=== PATIENT | male | born 1985 | race Hispanic/Latino ===

== ENCOUNTER 2018-10-18 15:09 | Emergency (ER) | payer SELFPAY ==
[2018-10-18 15:35] LABS: BASOPHILS % (AUTO) 0.8 % (0.0-5.0); EOSINOPHILS % (AUTO) 1.3 % (0.0-8.0); HEMATOCRIT 50.3 % (42-54); LYMPHOCYTES % (AUTO) 19.3 % (21.0-51.0); MEAN CORPUSCULAR HEMOGLOBIN 32.8 pg (27.0-33.0); MEAN CORPUSCULAR HGB CONC 34.5 g/dL (32.0-36.0); MEAN CORPUSCULAR VOLUME 95.2 fL (79-99); MONOCYTES % (AUTO) 5.1 % (3.0-13.0); NEUTROPHILS % (AUTO) 73.5 % (40.0-77.0); PLATELET COUNT (AUTO) 207 K/uL (130-400); RED BLOOD CELL COUNT(AUTO) 5.29 MIL/uL (4.50-6.20); RED CELL DISTRIBUTION WIDTH 13.4 % (11.0-15.5)
[2018-10-18 15:46] LABS: CREATININE 0.9 mg/dL (0.5-1.5); POTASSIUM 4.4 mmol/L (3.5-5.1)
[2018-10-18 15:48] LABS: INR 0.97 (0.85-1.15); PARTIAL THROMBOPLASTIN TIME 34.8 SEC (26.3-35.5); PROTHROMBIN TIME 10.2 SEC (9.6-11.6)
[2018-10-18 15:54] LABS: ALBUMIN 4.6 g/dL (3.5-5.0); BILIRUBIN,TOTAL 0.5 mg/dL (0.2-1.0); TOTAL PROTEIN, SERUM 7.9 g/dL (6.0-8.3)
[2018-10-18] MEDS ORDERED: THIAMINE HCL 100 MG/ML 2ML VIAL ONE (17:06)
[2018-10-18 17:11] LABS: APPEARANCE,URINE Cloudy (CLEAR); BILIRUBIN,URINE Negative (NEGATIVE); COLOR,URINE Yellow (YELLOW); GLUCOSE, URINE (UA) Negative (NEGATIVE); KETONES,URINE 15 mg/dL (NEGATIVE); LEUKOCYTE ESTERASE ,URINE Negative (NEGATIVE); NITRATE,URINE Negative (NEGATIVE); OCCULT BLOOD,URINE Negative (NEGATIVE); PROTEIN,URINE Negative (NEGATIVE)
[2018-10-18 17:18] LABS: AMPHET/METH SCREEN,URINE NEGATIVE (NEGATIVE); BARBITURATE SCREEN, URINE NEGATIVE (NEGATIVE); BENZODIAZEPINES SCREEN,URINE NEGATIVE (NEGATIVE); CANNABINOID SCREEN,URINE POSITIVE (NEGATIVE); COCAINE SCREEN,URINE NEGATIVE (NEGATIVE); OPIATE SCREEN,URINE NEGATIVE (NEGATIVE); PHENCYCLIDINE SCREEN,URINE NEGATIVE (NEGATIVE)
[2018-10-18 17:24] LABS: BACTERIA,URINE Few /HPF (None Seen); RBC,URINE None Seen /HPF (0-1)
[2018-10-18 17:25] LABS: MUCUS,URINE Many LPF (None Seen); SQUAMOUS EPITHELIAL CELL,UR None Seen /HPF (0-2)
== END 2018-10-18 17:41 ==
LOC: EDH 15:09
DX: R42 Dizziness and giddiness (principal); F10.10 Alcohol abuse, uncomplicated; R11.2 Nausea with vomiting, unspecified; R20.2 Paresthesia of skin; R19.7 Diarrhea, unspecified; R51 Headache; Z72.0 Tobacco use
CPT/HCPCS: 36415; 80053; 80305; 81001; 82150; 82550; 83690; 84484; 85025; 85610; 85730; 93005; 96374; 99285; G0480; J3411

== ENCOUNTER 2019-01-08 09:07 | Emergency (ER) | payer SELFPAY | END 2019-01-08 09:33 | disposition home or self-care (01) | LOC: EDH 09:07 | DX: S68.120D Partial traumatic metacarpophalangeal amputation of right index finger, subsequent encounter (principal); S68.122D Partial traumatic metacarpophalangeal amputation of right middle finger, subsequent encounter; S68.124D Partial traumatic metacarpophalangeal amputation of right ring finger, subsequent encounter; X58.XXXD Exposure to other specified factors, subsequent encounter | CPT/HCPCS: 99281 ==

== ENCOUNTER 2019-12-04 11:51 | Emergency (ER) | payer SELFPAY ==
[2019-12-04 12:38] LABS: APPEARANCE,URINE Clear (CLEAR); BILIRUBIN,URINE Negative (NEGATIVE); COLOR,URINE Yellow (YELLOW); GLUCOSE, URINE (UA) Negative (NEGATIVE); KETONES,URINE Trace mg/dL (NEGATIVE); LEUKOCYTE ESTERASE ,URINE Small (NEGATIVE); NITRATE,URINE Negative (NEGATIVE); OCCULT BLOOD,URINE Negative (NEGATIVE); PROTEIN,URINE Negative (NEGATIVE)
[2019-12-04 12:46] LABS: AMPHET/METH SCREEN,URINE NEGATIVE (NEGATIVE); BARBITURATE SCREEN, URINE NEGATIVE (NEGATIVE); BENZODIAZEPINES SCREEN,URINE NEGATIVE (NEGATIVE); CANNABINOID SCREEN,URINE POSITIVE (NEGATIVE); COCAINE SCREEN,URINE NEGATIVE (NEGATIVE); OPIATE SCREEN,URINE NEGATIVE (NEGATIVE); PHENCYCLIDINE SCREEN,URINE NEGATIVE (NEGATIVE)
[2019-12-04 13:05] LABS: BACTERIA,URINE Few /HPF (None Seen); SQUAMOUS EPITHELIAL CELL,UR 0-2 /HPF (0-2)
[2019-12-04 13:16] LABS: BASOPHILS % (AUTO) 0.3 % (0.0-5.0); EOSINOPHILS % (AUTO) 0.3 % (0.0-8.0); HEMATOCRIT 47.4 % (42-54); LYMPHOCYTES % (AUTO) 9.8 % (21.0-51.0); MEAN CORPUSCULAR HEMOGLOBIN 31.8 pg (27.0-33.0); MEAN CORPUSCULAR HGB CONC 34.6 g/dL (32.0-36.0); MEAN CORPUSCULAR VOLUME 91.9 fL (79-99); MONOCYTES % (AUTO) 4.8 % (3.0-13.0); NEUTROPHILS % (AUTO) 84.5 % (40.0-77.0); PLATELET COUNT (AUTO) 187 K/uL (130-400); RED BLOOD CELL COUNT(AUTO) 5.16 MIL/uL (4.50-6.20); RED CELL DISTRIBUTION WIDTH 12.4 % (11.0-15.5)
[2019-12-04 13:31] LABS: RAPID GROUP A STREP NEGATIVE (NEGATIVE)
[2019-12-04 13:32] LABS: CREATININE 0.8 mg/dL (0.5-1.5); POTASSIUM 4.6 mmol/L (3.5-5.1)
[2019-12-04 13:36] LABS: ALBUMIN 4.1 g/dL (3.5-5.0); BILIRUBIN,TOTAL 0.6 mg/dL (0.2-1.0); TOTAL PROTEIN, SERUM 7.7 g/dL (6.0-8.3)
== END 2019-12-04 14:38 ==
LOC: EEVIPCON 11:51 → EDH 11:51
DX: H65.02 Acute serous otitis media, left ear (principal); Z72.0 Tobacco use
CPT/HCPCS: 36415; 71045; 80053; 80305; 81001; 85025; 87088; 87804 ×2; 87880; 99284; G0480

== ENCOUNTER 2022-03-23 10:05 | Emergency (ER) | payer OTHER ==
[~2022-03-23] VITALS: Ht 162.6 cm; Wt 72.6 kg
[2022-03-23] MEDS ORDERED: MORPHINE 4 MG SYG IM ONE (10:30)
[2022-03-23 11:29] VITALS: BP 135/80
== END 2022-03-23 12:16 | disposition home or self-care (01) ==
LOC: EDH 10:05
DX: M25.511 Pain in right shoulder (principal); W01.0XXA Fall on same level from slipping, tripping and stumbling without subsequent striking against object, initial encounter; Y93.89 Activity, other specified; Y92.89 Other specified places as the place of occurrence of the external cause; Y99.8 Other external cause status
CPT/HCPCS: 99284; 73000; 73030; 96372; J2270

== ENCOUNTER 2022-10-21 06:20 | Emergency (ER) | payer OTHER, SELFPAY ==
[~2022-10-21] VITALS: Ht 152.4 cm; Wt 71.2 kg
[2022-10-21 06:25] VITALS: BP 129/76
[2022-10-21] MEDS ORDERED: IBUP-2071 PO (07:44)
[2022-10-21] MEDS ORDERED: SILV20CR11 TP (07:44)
[2022-10-21] MEDS ORDERED: SILVER SULFADIAZINE CREAM 50 GM TP SCH (08:00)
[2022-10-21] MEDS ORDERED: SILVER SULFADIAZINE CREAM 400 GM TP SCH (08:00)
[2022-10-21] MEDS ORDERED: IBUPROFEN 800 MG TAB PO ONE (08:00)
== END 2022-10-21 08:05 | disposition home or self-care (01) ==
LOC: EDH 06:20
DX: T25.021A Burn of unspecified degree of right foot, initial encounter (principal); Z98.890 Other specified postprocedural states; X08.8XXA Exposure to other specified smoke, fire and flames, initial encounter; Y93.89 Activity, other specified; Y92.89 Other specified places as the place of occurrence of the external cause; Y99.8 Other external cause status

== ENCOUNTER 2023-08-31 20:55 | Emergency (ER) | payer OTHER ==
[~2023-08-31] VITALS: Ht 160 cm; Wt 65.8 kg
[~2023-08-31 20:55] MED LIST: IBUP-2071 PO; SILV20CR11 TP
[2023-08-31 21:23] LABS: BASOPHILS # (AUTO) 0.05 K/uL (0.00-0.20); BASOPHILS % (AUTO) 0.6 % (0.0-5.0); EOSINOPHILS # (AUTO) 0.06 K/uL (0.00-0.70); EOSINOPHILS % (AUTO) 0.7 % (0.0-8.0); HEMATOCRIT 46.1 % (42-54); IMMATURE GRANULOCYTE ABSOLUTE 0.02 K/uL (0-1); LYMPHOCYTES # (AUTO) 2.9 K/uL (1.0-4.8); LYMPHOCYTES % (AUTO) 35.4 % (21.0-51.0); MEAN CORPUSCULAR HEMOGLOBIN 32.7 pg (27.0-33.0); MEAN CORPUSCULAR HGB CONC 35.4 g/dL (32.0-36.0); MEAN CORPUSCULAR VOLUME 92.6 fL (79-99); MONOCYTES # (AUTO) 0.5 K/uL (0.1-1.0); MONOCYTES % (AUTO) 6.4 % (3.0-13.0); NEUTROPHILS # (AUTO) 4.7 K/uL (1.8-7.7); NEUTROPHILS % (AUTO) 56.7 % (40.0-77.0); PLATELET COUNT (AUTO) 220 K/uL (130-400); RED BLOOD CELL COUNT(AUTO) 4.98 MIL/uL (4.50-6.20); WHITE BLOOD COUNT (AUTO) 8.3 K/uL (4.8-10.8)
[2023-08-31] MEDS: DiphenhydrAMINE HCL 50 MG/ML VIAL IV ONE (21:34)
[2023-08-31] MEDS: KETOROLAC 30MG VIAL (30MG/ML) IVP ONE (21:34)
[2023-08-31 21:45] LABS: ALBUMIN 4.4 g/dL (3.5-5.0); BILIRUBIN,TOTAL 0.5 mg/dL (0.2-1.0); CREATININE 1.1 mg/dL (0.5-1.5); TOTAL PROTEIN, SERUM 7.7 g/dL (6.0-8.3)
[2023-08-31 21:47] LABS: AMPHET/METH SCREEN,URINE NEGATIVE (NEGATIVE); BARBITURATE SCREEN, URINE NEGATIVE (NEGATIVE); BENZODIAZEPINES SCREEN,URINE NEGATIVE (NEGATIVE); CANNABINOID SCREEN,URINE POSITIVE (NEGATIVE); COCAINE SCREEN,URINE NEGATIVE (NEGATIVE); OPIATE SCREEN,URINE NEGATIVE (NEGATIVE); PHENCYCLIDINE SCREEN,URINE NEGATIVE (NEGATIVE)
[2023-08-31 21:47] LABS: POTASSIUM 2.8 mmol/L (3.5-5.1)
[2023-08-31] MEDS ORDERED: PROCHLORPERAZINE 10MG/2ML INJ IV ONE (22:00)
[2023-08-31] MEDS: POTASSIUM BICARB/CIT AC 25 MEQ TABLET.EFF PO ONE (22:14)
[2023-09-01 00:01] VITALS: BP 133/86; PULSE 68; RESP 17; O2SAT 99
[2023-09-01] MEDS ORDERED: IBUP-1493 PO (00:37)
[2023-09-01] MEDS ORDERED: HYDR25CA PO (00:37)
== END 2023-09-01 00:45 | disposition home or self-care (01) ==
LOC: EDH 20:55
DX: F41.9 Anxiety disorder, unspecified (principal); R07.89 Other chest pain; Z79.899 Other long term (current) drug therapy; Z98.890 Other specified postprocedural states
CPT/HCPCS: 99285; 96374; 71045; 96375; 84484; 80053; 80305; 85025; 36415; 93005; J1200; J1885

== ENCOUNTER 2023-09-05 21:28 | Emergency (ER) | payer OTHER ==
[~2023-09-05] VITALS: Ht 157.5 cm; Wt 64.9 kg
[~2023-09-05 21:28] MED LIST changes: +HYDR25CA PO; +IBUP-1493 PO
[2023-09-06 06:00] VITALS: BP 125/73; PULSE 66; RESP 19; O2SAT 100
[2023-09-06] MEDS: BACITRACIN 1 EACH PACKET TP ONE (08:17)
[2023-09-06] MEDS ORDERED: HYDR-3421 PO (08:26)
== END 2023-09-06 08:50 | disposition home or self-care (01) ==
LOC: EDH 21:28
DX: F41.0 Panic disorder [episodic paroxysmal anxiety] (principal); Z79.899 Other long term (current) drug therapy; Z98.890 Other specified postprocedural states
CPT/HCPCS: 93005

== ENCOUNTER 2023-09-29 16:38 | Emergency (ER) | payer OTHER ==
[~2023-09-29] VITALS: Ht 160 cm; Wt 63.5 kg
[~2023-09-29 16:38] MED LIST changes: +HYDR-3421 PO
[2023-09-29 17:20] LABS: BASOPHILS # (AUTO) 0.07 K/uL (0.00-0.20); BASOPHILS % (AUTO) 0.8 % (0.0-5.0); EOSINOPHILS % (AUTO) 1.1 % (0.0-8.0); HEMATOCRIT 47.2 % (42-54); IMMATURE GRANULOCYTE ABSOLUTE 0.03 K/uL (0-1); LYMPHOCYTES # (AUTO) 1.4 K/uL (1.0-4.8); LYMPHOCYTES % (AUTO) 15.4 % (21.0-51.0); MEAN CORPUSCULAR HEMOGLOBIN 31.9 pg (27.0-33.0); MEAN CORPUSCULAR HGB CONC 35.2 g/dL (32.0-36.0); MEAN CORPUSCULAR VOLUME 90.6 fL (79-99); MONOCYTES # (AUTO) 0.4 K/uL (0.1-1.0); MONOCYTES % (AUTO) 4.7 % (3.0-13.0); NEUTROPHILS % (AUTO) 77.7 % (40.0-77.0); PLATELET COUNT (AUTO) 174 K/uL (130-400); RED BLOOD CELL COUNT(AUTO) 5.21 MIL/uL (4.50-6.20); RED CELL DISTRIBUTION WIDTH 11.8 % (11.0-15.5)
[2023-09-29 17:37] LABS: CREATININE 0.9 mg/dL (0.5-1.3); POTASSIUM 4.8 mmol/L (3.5-5.1)
[2023-09-29] MEDS ORDERED: BUSP10TA3 PO (17:39)
[2023-09-29 17:40] LABS: APPEARANCE,URINE CLEAR (CLEAR); BILIRUBIN,URINE NEGATIVE (NEGATIVE); COLOR,URINE LIGHT-YELLOW (YELLOW); GLUCOSE, URINE (UA) NEGATIVE (NEGATIVE); KETONES,URINE NEGATIVE (NEGATIVE); LEUKOCYTE ESTERASE ,URINE NEGATIVE Leu/uL (NEGATIVE); NITRATE,URINE NEGATIVE (NEGATIVE); OCCULT BLOOD,URINE NEGATIVE (NEGATIVE); PH,URINE 5.5 (5.0-8.0); PROTEIN,URINE NEGATIVE (NEGATIVE); UROBILINOGEN,URINE 0.2 mg/dL (0.2-1.0)
[2023-09-29] MEDS ORDERED: HYDR-3421 PO (17:40)
[2023-09-29 17:41] LABS: ADD UA MICROSCOPIC NO
[2023-09-29 17:42] LABS: ALBUMIN 4.2 g/dL (3.5-5.0); BILIRUBIN,TOTAL 0.4 mg/dL (0.2-1.0); TOTAL PROTEIN, SERUM 7.6 g/dL (6.0-8.3)
[2023-09-29 17:47] LABS: AMPHET/METH SCREEN,URINE NEGATIVE (NEGATIVE); BARBITURATE SCREEN, URINE NEGATIVE (NEGATIVE); BENZODIAZEPINES SCREEN,URINE NEGATIVE (NEGATIVE); CANNABINOID SCREEN,URINE POSITIVE (NEGATIVE); COCAINE SCREEN,URINE NEGATIVE (NEGATIVE); OPIATE SCREEN,URINE NEGATIVE (NEGATIVE); PHENCYCLIDINE SCREEN,URINE NEGATIVE (NEGATIVE)
[2023-09-29 18:50] VITALS: BP 121/78; PULSE 89; RESP 17; O2SAT 98
== END 2023-09-29 19:01 | disposition home or self-care (01) ==
LOC: EDH 16:38
DX: F41.9 Anxiety disorder, unspecified (principal); G47.9 Sleep disorder, unspecified; Z87.891 Personal history of nicotine dependence; Z79.899 Other long term (current) drug therapy; Z98.890 Other specified postprocedural states
CPT/HCPCS: 36415; 80053; 80305; 81003; 85025; 93005

== ENCOUNTER 2023-10-19 21:16 | Emergency (ER) | payer BC, OTHER ==
[~2023-10-19] VITALS: Ht 162.6 cm; Wt 81.6 kg
[~2023-10-19 21:16] MED LIST changes: +BUSP10TA3 PO; -HYDR25CA PO; -IBUP-1493 PO; -IBUP-2071 PO; -SILV20CR11 TP
[2023-10-19 22:43] LABS: BASOPHILS # (AUTO) 0.04 K/uL (0.00-0.20); BASOPHILS % (AUTO) 0.5 % (0.0-5.0); EOSINOPHILS # (AUTO) 0.17 K/uL (0.00-0.70); HEMATOCRIT 45.8 % (42-54); IMMATURE GRANULOCYTE ABSOLUTE 0.02 K/uL (0-1); LYMPHOCYTES # (AUTO) 2.3 K/uL (1.0-4.8); LYMPHOCYTES % (AUTO) 28.2 % (21.0-51.0); MEAN CORPUSCULAR HEMOGLOBIN 32.1 pg (27.0-33.0); MEAN CORPUSCULAR HGB CONC 35.8 g/dL (32.0-36.0); MEAN CORPUSCULAR VOLUME 89.6 fL (79-99); MONOCYTES # (AUTO) 0.6 K/uL (0.1-1.0); MONOCYTES % (AUTO) 6.9 % (3.0-13.0); NEUTROPHILS # (AUTO) 5.2 K/uL (1.8-7.7); NEUTROPHILS % (AUTO) 62.2 % (40.0-77.0); PLATELET COUNT (AUTO) 174 K/uL (130-400); RED BLOOD CELL COUNT(AUTO) 5.11 MIL/uL (4.50-6.20); RED CELL DISTRIBUTION WIDTH 11.7 % (11.0-15.5); WHITE BLOOD COUNT (AUTO) 8.3 K/uL (4.8-10.8)
[2023-10-19 23:00] LABS: ALBUMIN 4.2 g/dL (3.5-5.0); BILIRUBIN,TOTAL 0.7 mg/dL (0.2-1.0); TOTAL PROTEIN, SERUM 7.4 g/dL (6.0-8.3)
[2023-10-19 23:03] LABS: POTASSIUM 2.8 mmol/L (3.5-5.1)
[2023-10-20 00:37] LABS: APPEARANCE,URINE CLEAR (CLEAR); BILIRUBIN,URINE NEGATIVE (NEGATIVE); COLOR,URINE COLORLESS (YELLOW); GLUCOSE, URINE (UA) NEGATIVE (NEGATIVE); KETONES,URINE NEGATIVE (NEGATIVE); LEUKOCYTE ESTERASE ,URINE NEGATIVE Leu/uL (NEGATIVE); NITRATE,URINE NEGATIVE (NEGATIVE); OCCULT BLOOD,URINE NEGATIVE (NEGATIVE); PH,URINE 6.5 (5.0-8.0); PROTEIN,URINE NEGATIVE (NEGATIVE); UROBILINOGEN,URINE 0.2 mg/dL (0.2-1.0)
[2023-10-20 00:38] LABS: ADD UA MICROSCOPIC NO
[2023-10-20] MEDS: POTASSIUM BICARB/CIT AC 25 MEQ TABLET.EFF PO ONE (00:42)
[2023-10-20 00:49] LABS: AMPHET/METH SCREEN,URINE NEGATIVE (NEGATIVE); BARBITURATE SCREEN, URINE NEGATIVE (NEGATIVE); BENZODIAZEPINES SCREEN,URINE NEGATIVE (NEGATIVE); CANNABINOID SCREEN,URINE NEGATIVE (NEGATIVE); COCAINE SCREEN,URINE NEGATIVE (NEGATIVE); OPIATE SCREEN,URINE NEGATIVE (NEGATIVE); PHENCYCLIDINE SCREEN,URINE NEGATIVE (NEGATIVE)
[2023-10-20] MEDS ORDERED: POTASSIUM CHLORIDE 20MEQ/10ML 10 MEQ in 0.9%NACL 50ML 50 ML IV SCH (01:00)
[2023-10-20 02:01] VITALS: BP 125/73; PULSE 76; RESP 16; O2SAT 99
== END 2023-10-20 02:30 | disposition home or self-care (01) ==
LOC: EDH 21:16
DX: R07.9 Chest pain, unspecified (principal); E87.6 Hypokalemia; F41.9 Anxiety disorder, unspecified
CPT/HCPCS: 99284; 84484; 80053; 80305; 85025; 36415; 93005; 81003; 71045; J3480

== ENCOUNTER 2023-12-27 20:36 | Emergency (ER) | payer BC ==
[~2023-12-27] VITALS: Ht 157.5 cm; Wt 68.0 kg
[2023-12-27 20:57] LABS: BASOPHILS # (AUTO) 0.05 K/uL (0.00-0.20); BASOPHILS % (AUTO) 0.5 % (0.0-5.0); HEMATOCRIT 44.5 % (42-54); IMMATURE GRANULOCYTE ABSOLUTE 0.03 K/uL (0-1); LYMPHOCYTES # (AUTO) 1.6 K/uL (1.0-4.8); LYMPHOCYTES % (AUTO) 16.5 % (21.0-51.0); MEAN CORPUSCULAR HEMOGLOBIN 31.1 pg (27.0-33.0); MEAN CORPUSCULAR HGB CONC 35.7 g/dL (32.0-36.0); MEAN CORPUSCULAR VOLUME 87.1 fL (79-99); MONOCYTES # (AUTO) 0.5 K/uL (0.1-1.0); MONOCYTES % (AUTO) 4.9 % (3.0-13.0); NEUTROPHILS # (AUTO) 7.6 K/uL (1.8-7.7); NEUTROPHILS % (AUTO) 76.8 % (40.0-77.0); PLATELET COUNT (AUTO) 185 K/uL (130-400); RED BLOOD CELL COUNT(AUTO) 5.11 MIL/uL (4.50-6.20); RED CELL DISTRIBUTION WIDTH 11.8 % (11.0-15.5); WHITE BLOOD COUNT (AUTO) 9.9 K/uL (4.8-10.8)
[2023-12-27 21:00] LABS: APPEARANCE,URINE CLEAR (CLEAR); BILIRUBIN,URINE NEGATIVE (NEGATIVE); COLOR,URINE COLORLESS (YELLOW); GLUCOSE, URINE (UA) NEGATIVE (NEGATIVE); KETONES,URINE NEGATIVE (NEGATIVE); LEUKOCYTE ESTERASE ,URINE NEGATIVE Leu/uL (NEGATIVE); NITRATE,URINE NEGATIVE (NEGATIVE); OCCULT BLOOD,URINE NEGATIVE (NEGATIVE); PROTEIN,URINE NEGATIVE (NEGATIVE); UROBILINOGEN,URINE 0.2 mg/dL (0.2-1.0)
[2023-12-27 21:08] LABS: CREATININE 1.1 mg/dL (0.5-1.3); POTASSIUM 3.5 mmol/L (3.5-5.1)
[2023-12-27 21:12] LABS: ADD UA MICROSCOPIC NO
[2023-12-27 21:20] LABS: ALBUMIN 4.4 g/dL (3.5-5.0); BILIRUBIN,TOTAL 0.7 mg/dL (0.2-1.0); TOTAL PROTEIN, SERUM 7.5 g/dL (6.0-8.3)
[2023-12-27 21:57] LABS: AMPHET/METH SCREEN,URINE NEGATIVE (NEGATIVE); BARBITURATE SCREEN, URINE NEGATIVE (NEGATIVE); BENZODIAZEPINES SCREEN,URINE NEGATIVE (NEGATIVE); CANNABINOID SCREEN,URINE NEGATIVE (NEGATIVE); COCAINE SCREEN,URINE NEGATIVE (NEGATIVE); OPIATE SCREEN,URINE NEGATIVE (NEGATIVE); PHENCYCLIDINE SCREEN,URINE NEGATIVE (NEGATIVE)
[2023-12-27] MEDS: 0.9%NACL 1000ML 1,000 ML IV ONE (22:49)
[2023-12-27] MEDS: HYDROXYZINE 10 MG TABLET PO SCH (23:34)
[2023-12-28] MEDS: PANTOPRAZOLE 40 MG/VIAL IVP ONE (00:46)
[2023-12-28] MEDS: KETOROLAC 60 MG VIAL (30MG/ML) IM ONE (00:47)
[2023-12-28 01:46] VITALS: BP 132/71; PULSE 77; RESP 16; O2SAT 98
== END 2023-12-28 02:21 | disposition home or self-care (01) ==
LOC: EDH 20:36
DX: F41.0 Panic disorder [episodic paroxysmal anxiety] (principal); Z79.899 Other long term (current) drug therapy
CPT/HCPCS: 99284; 71045; 96361; 84484; 80053; 80305; 85025; 36415; 93005; 81003; 96374; 96372; J7030; J1885; C9113

== ENCOUNTER 2024-01-15 20:09 | Emergency (ER) | payer BC, OTHER ==
[~2024-01-15] VITALS: Ht 162.6 cm; Wt 72.1 kg
[2024-01-15 21:44] LABS: BASOPHILS # (AUTO) 0.03 K/uL (0.00-0.20); BASOPHILS % (AUTO) 0.5 % (0.0-5.0); EOSINOPHILS # (AUTO) 0.09 K/uL (0.00-0.70); EOSINOPHILS % (AUTO) 1.4 % (0.0-8.0); HEMATOCRIT 45.7 % (42-54); IMMATURE GRANULOCYTE ABSOLUTE 0.02 K/uL (0-1); LYMPHOCYTES # (AUTO) 1.2 K/uL (1.0-4.8); LYMPHOCYTES % (AUTO) 17.9 % (21.0-51.0); MEAN CORPUSCULAR HEMOGLOBIN 31.6 pg (27.0-33.0); MEAN CORPUSCULAR HGB CONC 35.2 g/dL (32.0-36.0); MEAN CORPUSCULAR VOLUME 89.8 fL (79-99); MONOCYTES # (AUTO) 0.4 K/uL (0.1-1.0); NEUTROPHILS # (AUTO) 4.9 K/uL (1.8-7.7); NEUTROPHILS % (AUTO) 73.9 % (40.0-77.0); PLATELET COUNT (AUTO) 161 K/uL (130-400); RED BLOOD CELL COUNT(AUTO) 5.09 MIL/uL (4.50-6.20); RED CELL DISTRIBUTION WIDTH 11.8 % (11.0-15.5); WHITE BLOOD COUNT (AUTO) 6.7 K/uL (4.8-10.8)
[2024-01-15] MEDS ORDERED: PANT40TA55 PO (23:56)
[2024-01-16 00:38] VITALS: BP 143/66; PULSE 91; RESP 18; O2SAT 100
== END 2024-01-16 00:40 | disposition home or self-care (01) ==
LOC: EDH 20:09
DX: A08.4 Viral intestinal infection, unspecified (principal); F41.9 Anxiety disorder, unspecified; Z79.899 Other long term (current) drug therapy
CPT/HCPCS: 36415; 80048; 82550; 83690; 84484; 85025; 93005

== ENCOUNTER 2024-02-18 20:39 | Emergency (ER) | payer OTHER ==
[~2024-02-18] VITALS: Ht 157.5 cm; Wt 73.9 kg
[~2024-02-18 20:39] MED LIST changes: +PANT40TA55 PO
[2024-02-18 21:18] LABS: BASOPHILS # (AUTO) 0.04 K/uL (0.00-0.20); BASOPHILS % (AUTO) 0.6 % (0.0-5.0); EOSINOPHILS # (AUTO) 0.18 K/uL (0.00-0.70); EOSINOPHILS % (AUTO) 2.6 % (0.0-8.0); HEMATOCRIT 44.8 % (42-54); IMMATURE GRANULOCYTE ABSOLUTE 0.02 K/uL (0-1); LYMPHOCYTES # (AUTO) 1.8 K/uL (1.0-4.8); LYMPHOCYTES % (AUTO) 25.9 % (21.0-51.0); MEAN CORPUSCULAR HEMOGLOBIN 31.2 pg (27.0-33.0); MEAN CORPUSCULAR HGB CONC 35.3 g/dL (32.0-36.0); MEAN CORPUSCULAR VOLUME 88.5 fL (79-99); MONOCYTES # (AUTO) 0.5 K/uL (0.1-1.0); MONOCYTES % (AUTO) 7.2 % (3.0-13.0); NEUTROPHILS # (AUTO) 4.3 K/uL (1.8-7.7); NEUTROPHILS % (AUTO) 63.4 % (40.0-77.0); PLATELET COUNT (AUTO) 149 K/uL (130-400); RED BLOOD CELL COUNT(AUTO) 5.06 MIL/uL (4.50-6.20); RED CELL DISTRIBUTION WIDTH 11.9 % (11.0-15.5); WHITE BLOOD COUNT (AUTO) 6.8 K/uL (4.8-10.8)
[2024-02-18 21:32] LABS: POTASSIUM 3.3 mmol/L (3.5-5.1)
[2024-02-18] MEDS: KETOROLAC 15MG/ML VIAL (15MG/ML) IM ONE (22:00)
[2024-02-18 22:06] LABS: APPEARANCE,URINE CLEAR (CLEAR); BILIRUBIN,URINE NEGATIVE (NEGATIVE); COLOR,URINE COLORLESS (YELLOW); GLUCOSE, URINE (UA) NEGATIVE (NEGATIVE); KETONES,URINE NEGATIVE (NEGATIVE); LEUKOCYTE ESTERASE ,URINE NEGATIVE Leu/uL (NEGATIVE); NITRATE,URINE NEGATIVE (NEGATIVE); OCCULT BLOOD,URINE NEGATIVE (NEGATIVE); PROTEIN,URINE NEGATIVE (NEGATIVE); UROBILINOGEN,URINE 0.2 mg/dL (0.2-1.0)
[2024-02-18 22:07] LABS: RBC,URINE 0-1 /HPF (0-1); WBC,URINE 0-1 /HPF (0-1)
[2024-02-18 22:13] LABS: AMPHET/METH SCREEN,URINE NEGATIVE (NEGATIVE); BARBITURATE SCREEN, URINE NEGATIVE (NEGATIVE); BENZODIAZEPINES SCREEN,URINE NEGATIVE (NEGATIVE); CANNABINOID SCREEN,URINE NEGATIVE (NEGATIVE); COCAINE SCREEN,URINE NEGATIVE (NEGATIVE); OPIATE SCREEN,URINE NEGATIVE (NEGATIVE); PHENCYCLIDINE SCREEN,URINE NEGATIVE (NEGATIVE)
[2024-02-18 22:21] LABS: COVID19 (SARS ANTIGEN RAPID) PRESUMPTIVE NEGATIVE (NEGATIVE); INFLUENZA TYPE A Negative For Type A (NEGATIVE); INFLUENZA TYPE B Negative For Type B (NEGATIVE)
[2024-02-18] MEDS ORDERED: METH4TAB15 PO (23:07)
[2024-02-18] MEDS ORDERED: ALBUHFA IH (23:07)
[2024-02-18] MEDS ORDERED: AZIT1PAC7 PO (23:07)
[2024-02-18 23:24] VITALS: BP 132/82; PULSE 82; RESP 18; O2SAT 98
== END 2024-02-18 23:26 | disposition home or self-care (01) ==
LOC: EDH 20:39
DX: J18.9 Pneumonia, unspecified organism (principal); F41.9 Anxiety disorder, unspecified; Z20.822 Contact with and (suspected) exposure to COVID-19; Z79.899 Other long term (current) drug therapy; Z98.890 Other specified postprocedural states
CPT/HCPCS: 99285; 71045; 87426; 84484; 80048; 80305; 85025; 87804 ×2; 81001; 36415; 96372; 93005; J1885

== ENCOUNTER 2024-02-20 15:32 | Emergency (ER) | payer OTHER ==
[~2024-02-20] VITALS: Ht 157.5 cm; Wt 117.9 kg
[~2024-02-20 15:32] MED LIST changes: +ALBUHFA IH; +AZIT1PAC7 PO; +METH4TAB15 PO
[2024-02-20 17:07] LABS: HEMATOCRIT 49.1 % (42-54); MEAN CORPUSCULAR HGB CONC 34.8 g/dL (32.0-36.0); MEAN CORPUSCULAR VOLUME 89.1 fL (79-99); PLATELET COUNT (AUTO) 175 K/uL (130-400); RED BLOOD CELL COUNT(AUTO) 5.51 MIL/uL (4.50-6.20); RED CELL DISTRIBUTION WIDTH 11.8 % (11.0-15.5); WHITE BLOOD COUNT (AUTO) 6.3 K/uL (4.8-10.8)
[2024-02-20 17:14] LABS: BASOPHILS # (AUTO) 0.02 K/uL (0.00-0.20); BASOPHILS % (AUTO) 0.3 % (0.0-5.0); IMMATURE GRANULOCYTE ABSOLUTE 0.01 K/uL (0-1); LYMPHOCYTES # (AUTO) 0.7 K/uL (1.0-4.8); LYMPHOCYTES % (AUTO) 10.9 % (21.0-51.0); MONOCYTES # (AUTO) 0.1 K/uL (0.1-1.0); MONOCYTES % (AUTO) 1.5 % (3.0-13.0); NEUTROPHILS # (AUTO) 5.3 K/uL (1.8-7.7); NEUTROPHILS % (AUTO) 87.1 % (40.0-77.0)
[2024-02-20 17:23] LABS: CREATININE 0.9 mg/dL (0.5-1.3); POTASSIUM 4.3 mmol/L (3.5-5.1)
[2024-02-20 17:41] VITALS: BP 131/83; PULSE 80; RESP 16; O2SAT 98
== END 2024-02-20 17:41 | disposition home or self-care (01) ==
LOC: EDH 15:32
DX: I42.9 Cardiomyopathy, unspecified (principal); R07.89 Other chest pain; F41.9 Anxiety disorder, unspecified; Z79.52 Long term (current) use of systemic steroids; Z79.899 Other long term (current) drug therapy; Z98.890 Other specified postprocedural states
CPT/HCPCS: 36415; 71045; 80048; 85025; 93005

== ENCOUNTER 2024-02-21 21:32 | Emergency (ER) | payer OTHER ==
[~2024-02-21] VITALS: Ht 157.5 cm; Wt 72.6 kg
[2024-02-21 23:11] LABS: APPEARANCE,URINE CLEAR (CLEAR); BILIRUBIN,URINE NEGATIVE (NEGATIVE); GLUCOSE, URINE (UA) NEGATIVE (NEGATIVE); KETONES,URINE NEGATIVE (NEGATIVE); LEUKOCYTE ESTERASE ,URINE NEGATIVE Leu/uL (NEGATIVE); NITRATE,URINE NEGATIVE (NEGATIVE); OCCULT BLOOD,URINE NEGATIVE (NEGATIVE); PH,URINE 5.5 (5.0-8.0); PROTEIN,URINE NEGATIVE (NEGATIVE); UROBILINOGEN,URINE 0.2 mg/dL (0.2-1.0)
[2024-02-21 23:18] LABS: AMPHET/METH SCREEN,URINE NEGATIVE (NEGATIVE); BARBITURATE SCREEN, URINE NEGATIVE (NEGATIVE); BENZODIAZEPINES SCREEN,URINE NEGATIVE (NEGATIVE); CANNABINOID SCREEN,URINE NEGATIVE (NEGATIVE); COCAINE SCREEN,URINE NEGATIVE (NEGATIVE); OPIATE SCREEN,URINE NEGATIVE (NEGATIVE); PHENCYCLIDINE SCREEN,URINE NEGATIVE (NEGATIVE)
[2024-02-21 23:20] LABS: ADD UA MICROSCOPIC NO; COLOR,URINE Light-Yellow (YELLOW)
[2024-02-22] MEDS: hydrOXYzine 25 MG TABLET PO ONE (00:01)
[2024-02-22] MEDS: ASPIRIN 325MG TAB PO ONE (00:01)
[2024-02-22] MEDS: NITROGLYCERIN 1GM OINT 1 INCH/1GM TD ONE (00:02)
[2024-02-22 00:16] LABS: CREATININE 1.4 mg/dL (0.5-1.3); POTASSIUM 3.5 mmol/L (3.5-5.1)
[2024-02-22 00:28] LABS: RAPID GROUP A STREP negative (NEGATIVE)
[2024-02-22 00:34] LABS: COVID19 (SARS ANTIGEN RAPID) PRESUMPTIVE NEGATIVE (NEGATIVE); INFLUENZA TYPE A Negative For Type A (NEGATIVE); INFLUENZA TYPE B Negative For Type B (NEGATIVE)
[2024-02-22 01:12] LABS: BASOPHILS # (AUTO) 0.05 K/uL (0.00-0.20); BASOPHILS % (AUTO) 0.7 % (0.0-5.0); EOSINOPHILS # (AUTO) 0.15 K/uL (0.00-0.70); HEMATOCRIT 48.2 % (42-54); IMMATURE GRANULOCYTE ABSOLUTE 0.01 K/uL (0-1); LYMPHOCYTES # (AUTO) 1.8 K/uL (1.0-4.8); LYMPHOCYTES % (AUTO) 23.8 % (21.0-51.0); MEAN CORPUSCULAR HEMOGLOBIN 32.1 pg (27.0-33.0); MEAN CORPUSCULAR HGB CONC 36.1 g/dL (32.0-36.0); MEAN CORPUSCULAR VOLUME 88.9 fL (79-99); MONOCYTES # (AUTO) 0.5 K/uL (0.1-1.0); MONOCYTES % (AUTO) 6.4 % (3.0-13.0); NEUTROPHILS # (AUTO) 5.1 K/uL (1.8-7.7); PLATELET COUNT (AUTO) 195 K/uL (130-400); RED BLOOD CELL COUNT(AUTO) 5.42 MIL/uL (4.50-6.20); RED CELL DISTRIBUTION WIDTH 11.9 % (11.0-15.5); WHITE BLOOD COUNT (AUTO) 7.6 K/uL (4.8-10.8)
[2024-02-22] MEDS: 0.9%NACL 1000ML 1,000 ML IV ONE (01:21)
[2024-02-22 01:54] LABS: B-TYPE NATRIURETIC PEPTIDE < 5 pg/mL (0-100)
[2024-02-22 02:36] VITALS: BP 134/75; PULSE 71; RESP 16; O2SAT 97
== END 2024-02-22 02:46 | disposition home or self-care (01) ==
LOC: EDH 21:32
DX: R07.89 Other chest pain (principal); F41.9 Anxiety disorder, unspecified; N17.9 Acute kidney failure, unspecified; Z79.899 Other long term (current) drug therapy; Z20.822 Contact with and (suspected) exposure to COVID-19
CPT/HCPCS: 99285; 71045; 87426; 82550; 84484; 80048; 83880; 80305; 83690; 85025; 87880; 87804 ×2; 36415; 93005; 81003; 96360; J7030

== ENCOUNTER 2024-02-24 22:37 | Emergency (ER) | payer OTHER ==
[~2024-02-24] VITALS: Ht 157.5 cm; Wt 72.6 kg
[2024-02-25 00:28] LABS: APPEARANCE,URINE CLEAR (CLEAR); BILIRUBIN,URINE NEGATIVE (NEGATIVE); COLOR,URINE COLORLESS (YELLOW); GLUCOSE, URINE (UA) NEGATIVE (NEGATIVE); KETONES,URINE NEGATIVE (NEGATIVE); LEUKOCYTE ESTERASE ,URINE NEGATIVE Leu/uL (NEGATIVE); NITRATE,URINE NEGATIVE (NEGATIVE); OCCULT BLOOD,URINE NEGATIVE (NEGATIVE); PH,URINE 6.5 (5.0-8.0); PROTEIN,URINE NEGATIVE (NEGATIVE); UROBILINOGEN,URINE 0.2 mg/dL (0.2-1.0)
[2024-02-25 00:36] LABS: CREATININE 0.9 mg/dL (0.5-1.3)
[2024-02-25 00:38] LABS: BASOPHILS # (AUTO) 0.03 K/uL (0.00-0.20); BASOPHILS % (AUTO) 0.5 % (0.0-5.0); EOSINOPHILS # (AUTO) 0.05 K/uL (0.00-0.70); EOSINOPHILS % (AUTO) 0.8 % (0.0-8.0); HEMATOCRIT 45.7 % (42-54); IMMATURE GRANULOCYTE ABSOLUTE 0.01 K/uL (0-1); LYMPHOCYTES # (AUTO) 1.5 K/uL (1.0-4.8); LYMPHOCYTES % (AUTO) 22.9 % (21.0-51.0); MEAN CORPUSCULAR HEMOGLOBIN 31.2 pg (27.0-33.0); MEAN CORPUSCULAR HGB CONC 35.4 g/dL (32.0-36.0); MEAN CORPUSCULAR VOLUME 87.9 fL (79-99); MONOCYTES # (AUTO) 0.4 K/uL (0.1-1.0); MONOCYTES % (AUTO) 5.9 % (3.0-13.0); NEUTROPHILS # (AUTO) 4.5 K/uL (1.8-7.7); NEUTROPHILS % (AUTO) 69.7 % (40.0-77.0); PLATELET COUNT (AUTO) 176 K/uL (130-400); RED CELL DISTRIBUTION WIDTH 11.6 % (11.0-15.5); WHITE BLOOD COUNT (AUTO) 6.4 K/uL (4.8-10.8)
[2024-02-25 00:41] LABS: ALBUMIN 4.3 g/dL (3.5-5.0); BILIRUBIN,TOTAL 0.7 mg/dL (0.2-1.0); TOTAL PROTEIN, SERUM 7.3 g/dL (6.0-8.3)
[2024-02-25] MEDS: MAG/ALUM/SIMETH 30 ML UDCUP PO ONE (00:58)
[2024-02-25] MEDS: DICYCLOMINE HCL 10 MG/5 ML ML PO ONE (00:58)
[2024-02-25] MEDS: LIDOCAINE HCL 2% VISCOUS 15 ML UDCUP PO ONE (00:58)
[2024-02-25] MEDS: LORazepam 2 MG/ML 1 ML VIAL IVP ONE ×2 (00:58→02:15)
[2024-02-25] MEDS: LACTATED RINGERS 1000ML 1,000 ML IV ONE (00:59)
[2024-02-25] MEDS ORDERED: CLON1TAB23 PO (02:16)
[2024-02-25 02:28] VITALS: BP 125/80; PULSE 71; RESP 14; TEMP 97.8; O2SAT 99
== END 2024-02-25 02:56 | disposition home or self-care (01) ==
LOC: EDH 22:37
DX: F41.9 Anxiety disorder, unspecified (principal); R42 Dizziness and giddiness; Z79.899 Other long term (current) drug therapy; Z79.2 Long term (current) use of antibiotics; Z98.890 Other specified postprocedural states; Z79.52 Long term (current) use of systemic steroids
CPT/HCPCS: 99284; 80053; 85025; 81001; 36415; 96374; 71045; 96376; J2060 ×2; 96375

== ENCOUNTER 2024-05-06 17:55 | Emergency (ER) | payer OTHER ==
[~2024-05-06] VITALS: Ht 157.5 cm; Wt 75.3 kg
[~2024-05-06 17:55] MED LIST changes: +CLON1TAB23 PO
--- NOTE | 2024-05-06 18:01 | NUR ---
12 LEAD EKG IN TRIAGE
--- NOTE | 2024-05-06 18:44 | HMCIMG ---
Exam Type: CHEST 1VW Clinical Information: cp Comparison: None Findings: The lungs are clear of infiltrates. The heart is normal in size. The bony and soft tissue structures of the chest are unremarkable. Impression: Clear lungs.
[2024-05-06 19:13] LABS: BASOPHILS # (AUTO) 0.04 K/uL (0.00-0.20); BASOPHILS % (AUTO) 0.6 % (0.0-5.0); EOSINOPHILS # (AUTO) 0.11 K/uL (0.00-0.70); EOSINOPHILS % (AUTO) 1.6 % (0.0-8.0); HEMATOCRIT 44.4 % (42-54); IMMATURE GRANULOCYTE ABSOLUTE 0.02 K/uL (0-1); LYMPHOCYTES # (AUTO) 1.2 K/uL (1.0-4.8); LYMPHOCYTES % (AUTO) 16.9 % (21.0-51.0); MEAN CORPUSCULAR HEMOGLOBIN 31.1 pg (27.0-33.0); MEAN CORPUSCULAR HGB CONC 35.1 g/dL (32.0-36.0); MEAN CORPUSCULAR VOLUME 88.6 fL (79-99); MONOCYTES # (AUTO) 0.4 K/uL (0.1-1.0); MONOCYTES % (AUTO) 6.4 % (3.0-13.0); NEUTROPHILS # (AUTO) 5.1 K/uL (1.8-7.7); NEUTROPHILS % (AUTO) 74.2 % (40.0-77.0); PLATELET COUNT (AUTO) 152 K/uL (130-400); RED BLOOD CELL COUNT(AUTO) 5.01 MIL/uL (4.50-6.20); WHITE BLOOD COUNT (AUTO) 6.9 K/uL (4.8-10.8)
--- NOTE | 2024-05-06 19:15 | ERN ---
ED Note History of Present Illness Stated Complaint: CHEST PAIN Chief Complaint: Chest Wall Pain Time Seen by MD: 17:57 Time Seen by Midlevel: 17:57 Dictation: The Patient is a 38-year-old male with a history of anxiety who presents to the emergency department with chest pressure onset 30 minutes ago while cutting the yard. Associated with some shortness of breath. Patient reports pain radiating down his left arm. Reports he ran out of his anxiety medication nine days ago and has not follow up with primary doctor. Denies any nausea, vomiting, diarrhea, fevers. Allergies: Coded Allergies: No Known Drug Allergies (Verified Allergy, Unknown, 12/28/18) Home Meds Active Scripts Clonazepam (Clonazepam) 1 Mg Tab.rapdis, 1 MG PO Q8H for anxiety for 2 Days, #4 TAB Prov:EMPERATRIZ LOOMIS MD 02/25/24 Albuterol Sulfate (Ventolin Hfa/Proventil Hfa/Proair Hfa) 90 Mcg Puff, 1 PUFF IH Q4H PRN for SHORTNESS OF BREATH for 5 Days, #1 INH 0 Refills PHARMACY TO DISPENSE 1 INHALER FOR USE Prov:DAXA FIGUEROA 02/18/24 Methylprednisolone (Methylprednisolone) 4 Mg Tab.ds.pk, 4 MG PO DAILY for 5 Days, #1 PACK Prov:DAXA FIGUEROA 02/18/24 Azithromycin (Azithromycin) 1 Gram Packet, 1 GM PO DAILY for 5 Days, #1 PKT Prov:DAXA FIGUEROA 02/18/24 Pantoprazole Sodium (Protonix) 40 Mg Ectab, 40 MG PO DAILY for 30 Days, #30 TAB.EC Prov:MAYRA HAYNES MD 01/15/24 Hydroxyzine HCl (Hydroxyzine HCl) 25 Mg Tablet, 25 MG PO HS PRN for INSOMNIA for 30 Days, #12 TAB 1 Refill Prov:KATHE MILLS 09/29/23 Buspirone HCl (Buspirone HCl) 10 Mg Tablet, 10 MG PO TID, #90 TAB 1 Refill Prov:KATHE MILLS 09/29/23 Past Medical History Past Medical History: Anxiety, Depression Additional Past Medical Hx: KIP Surgical History: None Surgical History Other: RT HAND SX Family History: DM, HTN Social History: ETOH, Lives with family RN Note Reviewed/Agreed w/PFSH: Yes Review of System Dictation Constitutional: Negative for fever,chills, and weight loss Eyes: Negative for injury, pain,redness, and discharge ENT: Negative for injury,pain or swelling Cardiovascular: Negative for palpitations, and edema. Positive for chest pain Respiratory: Negative for cough, and wheezing, positive for shortness of breath Abdomen/GI: Negative for abdominal pain, nausea, vomiting, diarrhea, and co nstipation Back: Negative for injury and pain : Negative for injury, bleeding and discharge MS/Extremity: Negative for injury and deformity Skin: Negative for rash, and discoloration Neuro: Negative for headache, weakness, numbness, tingling, and seizure Psych: Negative for suicide ideation, homicidal ideation, and hallucinations Initial Vital Sign VS Vital Signs Date Time Temp Pulse Resp B/P (MAP) Pulse Ox O2 Delivery O2 Flow Rate FiO2 05/06/24 17:57 98.4 98 20 156/101 97 0 05/06/24 19:35 Room Air* 21 Physical Exam Dictation Vital Signs reviewed General Appearance: Alert, oriented x 3, no acute distress, anxious, well developed, nourished. Head and Face: non-traumatic. Eyes: PERRL, pink conjunctivas, eyelid no trauma, anterior chamber with arcus senilis. Ears: Pinnas intact and no signs of trauma or erythema ear canals clear and no discharge TM no erythema Nose: No discharge, no bleeding. Oropharynx: Mouth normal, tongue pink. pharynx clear,no erythema, tonsils no exudates, no abscesses noted, mucous membrane moist Neck: Supple, non-tender, no thyromegaly, no masses, no JVD, no bruits Breast:Deferred Chest:No tenderness, no crepitus, no paradoxical movement, no retractions Lungs:Clear, well-ventilated, symmetric, no rales, no wheezing, no rhonchi, no stridor, good breath sounds bilaterally Heart: Regular rate, regular rhythm, no murmur, no gallops Vascular: no peripheral edema, Abdomen: Soft, positive bowel sounds, nondistended, no guarding, nontender, no rebound, no masses no hepatomegaly, no splenomegaly, no Robles's sign, no hernias. Rectal: Deferred Genital: Deferred Neurological: Normal speech, motor function intact, sensory function intact Musculoskeletal: Neck nontender, full range of motion, back nontender, full range of motion, Extremities: nontender, full range of motion Skin: Color pink, dry, no turgor, no rash, no lacerations, no abrasions, no contusions. Lymphatic: Deferred Results (Laboratory/Radiology) Laboratory/Radiology Laboratory Tests Test 05/06/24 19:00 05/06/24 19:58 05/06/24 20:15 White Blood Count 6.9 K/uL (4.8-10.8) Red Blood Count 5.01 MIL/uL (4.50-6.20) Hemoglobin 15.6 g/dL (14.0-18.0) Hematocrit 44.4 % (42-54) Mean Corpuscular Volume 88.6 fL (79-99) Mean Corpuscular Hemoglobin 31.1 pg (27.0-33.0) Mean Corpuscular Hemoglobin Concent 35.1 g/dL (32.0-36.0) Red Cell Distribution Width 12.0 % (11.0-15.5) Platelet Count 152 K/uL (130-400) Mean Platelet Volume 10.7 fL (7.5-10.5) H Immature Granulocyte % (Auto) 0.3 % (0-1) Neutrophils (%) (Auto) 74.2 % (40.0-77.0) Lymphocytes (%) (Auto) 16.9 % (21.0-51.0) L Monocytes (%) (Auto) 6.4 % (3.0-13.0) Eosinophils (%) (Auto) 1.6 % (0.0-8.0) Basophils (%) (Auto) 0.6 % (0.0-5.0) Neutrophils # (Auto) 5.1 K/uL (1.8-7.7) Lymphocytes # (Auto) 1.2 K/uL (1.0-4.8) Monocytes # (Auto) 0.4 K/uL (0.1-1.0) Eosinophils # (Auto) 0.11 K/uL (0.00-0.70) Basophils # (Auto) 0.04 K/uL (0.00-0.20) Absolute Immature Granulocyte (auto 0.02 K/uL (0-1) Nucleated Red Blood Cells 0.0 % (0.0-0.19) Sodium Level 135 mmol/L (136-145) L Potassium Level 3.2 mmol/L (3.5-5.1) L Chloride Level 98 mmol/L (101-111) L Carbon Dioxide Level 31 mmol/L (21-32) Blood Urea Nitrogen 17 mg/dL (7-18) Creatinine 0.9 mg/dL (0.5-1.3) Glomerular Filtration Rate Calc 114 mL/min (>90) Random Glucose 101 mg/dL (70-105) Total Calcium 8.6 mg/dL (8.5-10.1) Total Creatine Kinase 205 U/L (21-232) # Troponin I High Sensitivity 5 ng/L (4-75) 6 ng/L (4-75) Urine Opiates Screen NEGATIVE (NEGATIVE) Urine Barbiturates Screen NEGATIVE (NEGATIVE) Urine Phencyclidine Screen NEGATIVE (NEGATIVE) Urine Amphetamines Screen NEGATIVE (NEGATIVE) Urine Benzodiazepines Screen NEGATIVE (NEGATIVE) Urine Cocaine Screen NEGATIVE (NEGATIVE) Urine Marijuana (THC) Screen NEGATIVE (NEGATIVE) REASON: cp ORDERING PHYSICIAN: CHARITY HUGHES PROCEDURE: CXR1VW - CHEST 1VW Exam Type: CHEST 1VW Clinical Information: cp Comparison: None Findings: The lungs are clear of infiltrates. The heart is normal in size. The bony and soft tissue structures of the chest are unremarkable. Impression: Clear lungs. Labs Reviewed?: Yes EKG: (+) rhythm (Sinus rhythm), (+) CT (172), (+) QRS (111) EKG Comment: EKG 05/06/2024 1803 ventricular rate 94, regular rate and rhythm, normal sinus rhythm, no STEMI, early mobilization problem ED Course ED Course Orders Procedure Category Date Status Time 12 Lead Ekg Tracing- EKG 05/06/24 Logged Technical 18:00 Cbc With Differential LAB 05/06/24 Complete 18:29 Chest 1vw RAD 05/06/24 Resulted 18:29 12 Lead Ekg Tracing- EKG 05/06/24 Logged Technical 18:29 Creatine Kinase, Total LAB 05/06/24 Complete 18:29 Troponin I High LAB 05/06/24 Complete Sensitivity 18:29 Aspirin 325mg Tab PHA 05/06/24 Complete (Aspirin 325mg Tab) 18:30 Basic Metabolic Panel LAB 05/06/24 Complete 18:29 Lorazepam 1 Mg PHA 05/06/24 Complete (Ativan) 18:30 Drug Screen Urine LAB 05/06/24 Complete 19:51 Troponin I High LAB 05/06/24 Complete Sensitivity 19:51 Potassium Bicarb/Cit PHA 05/06/24 Complete Ac 25meq (K-Lyte Ta 21:00 Current Medications Medications (Trade) Dose Ordered Sig/Rebeca Route PRN Reason Start Time Stop Time Status Last Admin Dose Admin Aspirin (Aspirin 325mg Tab) 325 mg ONCE ONCE PO 05/06/24 18:30 05/06/24 18:31 DC 05/06/24 19:41 Lorazepam (AtiVAN) 1 mg ONCE ONCE PO 05/06/24 18:30 05/06/24 18:31 DC 05/06/24 19:41 Potassium Bicarbonate (K-Lyte Tablet Eff 25 Meq Tablet.eff) 25 meq ONCE ONCE PO 05/06/24 21:00 05/06/24 21:01 DC Vital Signs Date Time Temp Pulse Resp B/P (MAP) Pulse Ox O2 Delivery O2 Flow Rate FiO2 05/06/24 19:35 98.1 94 18 133/88 99 Room Air* 0 21 05/06/24 17:57 98.4 98 20 156/101 97 0 HEART Score Response (Comments) Value History: Low suspicion (0) 0 EKG: Repolarization changes 1 Age: < 45yrs (0) 0 Risk Factors: No known risk factors (0) 0 Initial Troponin: Normal limit (0) 0 HEART Score Risk: Low Risk for MACE (1-3) Total 1 Medical Decision Making MDM The Patient is a 38-year-old male with a history of anxiety who presents to the emergency department with chest pressure onset 30 minutes ago while cutting the yard. Associated with some shortness of breath. Patient reports pain radiating down his left arm. Reports he ran out of his anxiety medication nine days ago and has not follow up with primary doctor. Denies any nausea, vomiting, diarrhea, fevers. CBC showed no leukocytosis, no anemia, chemistry showed mild hyponatremia, hypokalemia, hyponatremia, troponins negative x2. chest x-ray is unremarkable. Patient has a long history of anxiety and has been seen before for the same reason. Patient i symptoms probably related to anxiety. Patient instructed to follow up with PCP for management. Patient continues in no acute distress. Appears more calm. denies any more pain. Differential diagnosis: ACS, pneumonia, pneumothorax, anxiety, electrolyte imbalance Need for hospitalization: Patient does not meet criteria for hospitalization. There are no social concerns with this patient. DX & DISP Disposition: Discharge Departure Impression: Primary Impression: Anxiety Additional Impressions: Chest pain with low risk for cardiac etiology, Hypokalemia, Hyponatremia, Hypochloremia Condition: Stable Scripts Hydroxyzine HCl (Hydroxyzine HCl) 25 Mg Tablet 1 TAB PO BID for anxiety for 30 Days, #60 TAB 0 Refills Prov: CHARITY HUGHES 05/06/24 Additional Instructions: Please follow up with primary doctor in 1-2 days. Please return to ER if symptoms worsen. Continue oral hydration with a electrolytes leg Gatorade at home. FOLLOW-UP WITH PRIMARY CARE PROVIDER IN 1 TO 2 DAYS. TAKE MEDICATIONS DIR ECTED HERE IN THE EMERGENCY ROOM. OKAY TO CONTINUE HOME MEDICATIONS UNLESS OTHERWISE DISCUSSED DURING YOUR VISIT IN THE EMERGENCY ROOM TODAY. RETURN TO YOUR NEAREST EMERGENCY ROOM IF SYMPTOMS WORSEN OR IF THERE IS NO IMPROVEMENT. CALL 911 IF YOU NEED IMMEDIATE ASSISTANCE. TAKE TYLENOL OR MOTRIN [id number] NEEDED AND IF NO CONTRAINDICATIONS ARE PRESENT. INCREASE ORAL HYDRATION. A WOUND CULTURE OR URINE CULTURE WAS ORDERED HERE IN THE EMERGENCY ROOM DEPARTMENT PLEASE FOLLOW-UP WITH PRIMARY CARE PROVIDER AND ADVISE THEM TO GET REPEAT PORTS FROM OUR FACILITY. IF YOU HAD ANY RICA WRAP/SPLINTS THAT WERE APPLIED HERE, PLEASE DO NOT REMOVE THEM UNTIL YOU SEE YOUR PRIMARY CARE OR SPECIALTY. Referrals: CHAD SCHWARZ MD (PCP) Time of Disposition: 21:38 I have reviewed the case, and I agree with, Diagnosis and Plan CHARITY HUGHES May 06, 2024 19:15
[2024-05-06 19:21] LABS: CREATININE 0.9 mg/dL (0.5-1.3); POTASSIUM 3.2 mmol/L (3.5-5.1)
[2024-05-06] MEDS: LORazepam 1 MG TABLET PO ONE (19:41)
[2024-05-06] MEDS: ASPIRIN 325MG TAB PO ONE (19:41)
[2024-05-06 21:14] LABS: AMPHET/METH SCREEN,URINE NEGATIVE (NEGATIVE); BARBITURATE SCREEN, URINE NEGATIVE (NEGATIVE); BENZODIAZEPINES SCREEN,URINE NEGATIVE (NEGATIVE); CANNABINOID SCREEN,URINE NEGATIVE (NEGATIVE); COCAINE SCREEN,URINE NEGATIVE (NEGATIVE); OPIATE SCREEN,URINE NEGATIVE (NEGATIVE); PHENCYCLIDINE SCREEN,URINE NEGATIVE (NEGATIVE)
[2024-05-06] MEDS ORDERED: HYDR-3421 PO (21:40)
[2024-05-06] MEDS: PoTASSium BIcarbonate/CIT AC 25 MEQ TABLET.EFF PO ONE (21:48)
[2024-05-06 21:49] VITALS: BP 127/74; PULSE 81; RESP 18; TEMP 98.1; O2SAT 97
--- NOTE | 2024-05-07 06:48 | EKG ---
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
== END 2024-05-06 21:52 | disposition home or self-care (01) ==
LOC: EDH 17:55
DX: F41.9 Anxiety disorder, unspecified (principal); R07.89 Other chest pain; E87.6 Hypokalemia; E87.1 Hypo-osmolality and hyponatremia; E87.8 Other disorders of electrolyte and fluid balance, not elsewhere classified; Z79.52 Long term (current) use of systemic steroids; Z79.899 Other long term (current) drug therapy
CPT/HCPCS: 36415; 71045; 80048; 80305; 82550; 84484; 85025; 93005

== ENCOUNTER 2024-05-10 14:40 | Emergency (ER) | payer OTHER ==
[~2024-05-10] VITALS: Ht 157.5 cm; Wt 75.7 kg
--- NOTE | 2024-05-10 15:13 | ERN ---
General Chief Complaint: Rapid Heart Rate Stated Complaint: TACHYCARDIA Time Seen by MD: 14:48 History of Present Illness Initial Comments 38-year-old male who presents for palpitations. Long history of anxiety. He reports that he got a flu shot couple of days ago and since then he has been feeling his heart racing. No fevers or other symptoms. No surgical history. Patient has a history of anxiety and panic attacks, takes escitalopram Allergies: Coded Allergies: No Known Drug Allergies (Verified Allergy, Unknown, 12/28/18) Home Meds Active Scripts Hydroxyzine HCl (Hydroxyzine HCl) 25 Mg Tablet, 1 TAB PO BID for anxiety for 30 Days, #60 TAB 0 Refills Prov:CHARITY HUGHES 05/06/24 Clonazepam (Clonazepam) 1 Mg Tab.rapdis, 1 MG PO Q8H for anxiety for 2 Days, #4 TAB Prov:EMPERATRIZ LOOMIS MD 02/25/24 Albuterol Sulfate (Ventolin Hfa/Proventil Hfa/Proair Hfa) 90 Mcg Puff, 1 PUFF IH Q4H PRN for SHORTNESS OF BREATH for 5 Days, #1 INH 0 Refills PHARMACY TO DISPENSE 1 INHALER FOR USE Prov:DAXA FIGUEROA 02/18/24 Methylprednisolone (Methylprednisolone) 4 Mg Tab.ds.pk, 4 MG PO DAILY for 5 Days, #1 PACK Prov:DAXA FIGUEROA 02/18/24 Azithromycin (Azithromycin) 1 Gram Packet, 1 GM PO DAILY for 5 Days, #1 PKT Prov:DAXA FIGUEROA 02/18/24 Pantoprazole Sodium (Protonix) 40 Mg Ectab, 40 MG PO DAILY for 30 Days, #30 TAB.EC Prov:MAYRA HAYNES MD 01/15/24 Hydroxyzine HCl (Hydroxyzine HCl) 25 Mg Tablet, 25 MG PO HS PRN for INSOMNIA for 30 Days, #12 TAB 1 Refill Prov:KATHE MILLS 09/29/23 Buspirone HCl (Buspirone HCl) 10 Mg Tablet, 10 MG PO TID, #90 TAB 1 Refill Prov:KATHE MILLS 09/29/23 Past Medical History Past Medical History: Anxiety, Depression Medical History Other: KIP Past Surgical History: None Surgical History Other: RT HAND SX Family History Family History: DM, HTN Social History Social History: ETOH, Lives with family ROS Dictation CONSTITUTIONAL: No chills, no fever, no weakness, no diaphoresis, no malaise. HEAD/FACE: No signs of trauma. EENT: No eye pain, no blurred vision, no tearing, no double vision, no ear pain, no ear discharge, no nose pain, no nasal congestion, no throat pain, no throat swelling, no mouth pain. RESPIRATORY: No cough, no orthopnea, no SOB, no stridor, no wheezing. CARDIOVASCULAR: Palpitations GASTROINTESTINAL/ABDOMINAL: No abdominal pain, no constipation, no diarrhea, no nausea, no vomiting. GENITOURINARY: No abnormal discharge, no dysuria, no frequent urination, no hematuria. No complaints of pain in the genitals. MUSCULOSKELETAL: No back pain, no gout, no joint pain, no joint swelling, no muscle pain, no muscle stiffness, no neck pain. INTEGUMENTARY: No change in color, no change in hair/nails, no dryness, no lesion, no lumps, no rash. NEUROLOGICAL/PSYCH: No anxiety, not depressed, no emotional problem, no headache, no numbness, no pre-existing deficit, no history of seizures, no tremors, no weakness. HEMATOLOGIC/LYMPHATIC: Not anemic, no history of blood clots, no apparent bleeding, no bruising, glands not swollen. All Systems Negative, Except as Noted. Physical Exam Physical Exam Dictation VITAL SIGNS: Reviewed. GENERAL APPEARANCE: Alert, oriented x3, no acute distress, obese. HEAD AND FACE: Non-traumatic. EYES: PERRL, pink conjunctivas, eyelid no trauma, anterior chamber clear. EARS: Pinnas intact and no signs of trauma or erythema. Ear canals clear and no discharge. TMs no erythema. NOSE: No discharge, no bleeding. OROPHARYNX: Mouth normal, teeth no caries, tongue pink. Pharynx clear, no erythema. Tonsils no exudates, no abscesses noted. Mucous membrane moist. NECK: Supple, non-tender, no thyromegaly, no masses, no JVD, no bruits. BREAST: Deferred. CHEST: No tenderness, no crepitus, no paradoxical movement, no retractions. LUNGS: Clear, well-ventilated, symmetric, no rales, no wheezing, no rhonchi, no stridor, good breath sounds bilaterally. HEART: Regular rate, regular rhythm, no murmur, no gallops. VASCULAR: No peripheral edema. ABDOMEN: Soft, positive bowel sounds, nondistended, no guarding, nontender, no rebound, no masses no hepatomegaly, no splenomegaly, no Robles's sign, no hernias. RECTAL: Deferred. GENITAL: Deferred. NEUROLOGICAL: Normal speech, gross motor function intact, gross sensory function intact. MUSCULOSKELETAL: Neck nontender, full range of motion, back nontender, full range of motion. EXTREMITIES: Nontender, full range of motion. SKIN: Color pink, dry, no turgor, no rash, no lacerations, no abrasions, no contusions. LYMPHATICS: Deferred. MDM CC: Palpitations Historian: Patient Comorbidities: Anxiety Limitations by social determinants of health: None Vital signs are stable Clinically he is nontoxic I considered anxiety, low suspicion for arrhythmia but we will get an EKG. EKG shows sinus rhythm, rate 96, RVH, normal axis good R-wave progression intervals are stable no STEMI. Interpreted by me. Patient has a long history of anxiety, he is having a panic attack. His clinical exam is normal. His EKGs normal. We will recommend he continue his home meds. I offered him a hydroxyzine but he reports that he has those at home he can take one when he gets home. We will DC. ED Course Orders Procedure Category Date Status Time 12 Lead Ekg Tracing- EKG 05/10/24 Logged Technical 14:48 12 Lead Ekg Tracing- EKG 05/10/24 Logged Technical 14:48 Vital Signs Date Time Temp Pulse Resp B/P (MAP) Pulse Ox O2 Delivery O2 Flow Rate FiO2 05/10/24 14:44 98.6 102 18 119/78 97 Room Air 0 DX & DISP Disposition: Discharge Departure Impression: Primary Impression: Anxiety Condition: Stable Additional Instructions: Your symptoms are consistent with a panic attack or anxiety. Your EKG is normal Your vital signs are stable Your cardiac exam is normal. As we discussed, continue taking the escitalopram. You can take periodic hydroxyzine. I do not recommend taking it late at night. You can take one today when you get home. Please return to the emergency department if you have any concerns. Referrals: CHAD SCHWARZ MD (PCP) JOSE YUAN DO May 10, 2024 15:13
[2024-05-10 15:30] VITALS: BP 143/91; PULSE 92; RESP 16; TEMP 98.1
--- NOTE | 2024-05-10 17:53 | EKG ---
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
== END 2024-05-10 15:45 | disposition home or self-care (01) ==
LOC: EDH 14:40
DX: F41.9 Anxiety disorder, unspecified (principal); F32.A Depression, unspecified; Z79.52 Long term (current) use of systemic steroids; Z79.899 Other long term (current) drug therapy
CPT/HCPCS: 93005; 99283

== ENCOUNTER 2024-06-07 15:57 | Emergency (ER) | payer BC, OTHER ==
[~2024-06-07] VITALS: Ht 157.5 cm; Wt 73.9 kg
[2024-06-07 16:49] LABS: BASOPHILS # (AUTO) 0.04 K/uL (0.00-0.20); BASOPHILS % (AUTO) 0.6 % (0.0-5.0); EOSINOPHILS # (AUTO) 0.11 K/uL (0.00-0.70); EOSINOPHILS % (AUTO) 1.8 % (0.0-8.0); HEMATOCRIT 48.3 % (42-54); IMMATURE GRANULOCYTE ABSOLUTE 0.01 K/uL (0-1); LYMPHOCYTES # (AUTO) 1.2 K/uL (1.0-4.8); LYMPHOCYTES % (AUTO) 19.3 % (21.0-51.0); MEAN CORPUSCULAR HEMOGLOBIN 31.6 pg (27.0-33.0); MEAN CORPUSCULAR HGB CONC 34.6 g/dL (32.0-36.0); MEAN CORPUSCULAR VOLUME 91.3 fL (79-99); MONOCYTES # (AUTO) 0.5 K/uL (0.1-1.0); MONOCYTES % (AUTO) 7.7 % (3.0-13.0); NEUTROPHILS # (AUTO) 4.4 K/uL (1.8-7.7); NEUTROPHILS % (AUTO) 70.4 % (40.0-77.0); PLATELET COUNT (AUTO) 168 K/uL (130-400); RED BLOOD CELL COUNT(AUTO) 5.29 MIL/uL (4.50-6.20); RED CELL DISTRIBUTION WIDTH 11.7 % (11.0-15.5); WHITE BLOOD COUNT (AUTO) 6.3 K/uL (4.8-10.8)
--- NOTE | 2024-06-07 17:15 | ERN ---
General Chief Complaint: Anxiety/Panic Attack Stated Complaint: ANXIETY Time Seen by MD: 16:00 Source: patient History of Present Illness Initial Comments Patient is a 38-year-old male coming in to be evaluated for anxiety attack. Patient states he has a history of anxiety started feeling worse after being with his girlfriend. Allergies: Coded Allergies: No Known Drug Allergies (Verified Allergy, Unknown, 12/28/18) Home Meds Active Scripts Hydroxyzine HCl (Hydroxyzine HCl) 25 Mg Tablet, 1 TAB PO BID for anxiety for 30 Days, #60 TAB 0 Refills Prov:CHARITY HUGHES 05/06/24 Clonazepam (Clonazepam) 1 Mg Tab.rapdis, 1 MG PO Q8H for anxiety for 2 Days, #4 TAB Prov:EMPERATRIZ LOOMIS MD 02/25/24 Albuterol Sulfate (Ventolin Hfa/Proventil Hfa/Proair Hfa) 90 Mcg Puff, 1 PUFF IH Q4H PRN for SHORTNESS OF BREATH for 5 Days, #1 INH 0 Refills PHARMACY TO DISPENSE 1 INHALER FOR USE Prov:DAXA FIGUEROA 02/18/24 Methylprednisolone (Methylprednisolone) 4 Mg Tab.ds.pk, 4 MG PO DAILY for 5 Days, #1 PACK Prov:DAXA FIGUEROA 02/18/24 Azithromycin (Azithromycin) 1 Gram Packet, 1 GM PO DAILY for 5 Days, #1 PKT Prov:DAXA FIGUEROA 02/18/24 Pantoprazole Sodium (Protonix) 40 Mg Ectab, 40 MG PO DAILY for 30 Days, #30 TAB .EC Prov:MAYRA HAYNES MD 01/15/24 Hydroxyzine HCl (Hydroxyzine HCl) 25 Mg Tablet, 25 MG PO HS PRN for INSOMNIA for 30 Days, #12 TAB 1 Refill Prov:KATHE MILLS 09/29/23 Buspirone HCl (Buspirone HCl) 10 Mg Tablet, 10 MG PO TID, #90 TAB 1 Refill Prov:KATHE MILLS 09/29/23 Past Medical History Past Medical History: Anxiety, Depression Medical History Other: KIP Past Surgical History: None Surgical History Other: RT HAND SX Family History Family History: DM, HTN Social History Social History: ETOH, Lives with family ROS Dictation CONSTITUTIONAL: No chills, no fever, no weakness, no diaphoresis, no malaise. HEAD/FACE: No signs of trauma. EENT: No eye pain, no blurred vision, no tearing, no double vision, no ear pain, no ear discharge, no nose pain, no nasal congestion, no throat pain, no throat swelling, no mouth pain. RESPIRATORY: No cough, no orthopnea, no SOB, no stridor, no wheezing. CARDIOVASCULAR: No chest pain, no edema, no palpitations, no syncope. GASTROINTESTINAL/ABDOMINAL: No abdominal pain, no constipation, no diarrhea, no nausea, no vomiting. GENITOURINARY: No abnormal discharge, no dysuria, no frequent urination, no hematuria. No complaints of pain in the genitals. MUSCULOSKELETAL: No back pain, no gout, no joint pain, no joint swelling, no muscle pain, no muscle stiffness, no neck pain. INTEGUMENTARY: No change in color, no change in hair/nails, no dryness, no lesion, no lumps, no rash. NEUROLOGICAL/PSYCH: No anxiety, not depressed, no emotional problem, no headache, no numbness, no pre-existing deficit, no history of seizures, no tremors, no weakness. HEMATOLOGIC/LYMPHATIC: Not anemic, no history of blood clots, no apparent bleeding, no bruising, glands not swollen. All Systems Negative, Except as Noted. Physical Exam Physical Exam Dictation VITAL SIGNS: Reviewed. GENERAL APPEARANCE: Alert, oriented x3, no acute distress, obese. HEAD AND FACE: Non-traumatic. EYES: PERRL, pink conjunctivas, eyelid no trauma, anterior chamber clear. EARS: Pinnas intact and no signs of trauma or erythema. Ear canals clear and no discharge. TMs no erythema. NOSE: No discharge, no bleeding. OROPHARYNX: Mouth normal, teeth no caries, tongue pink. Pharynx clear, no erythema. Tonsils no exudates, no abscesses noted. Mucous membrane moist. NECK: Supple, non-tender, no thyromegaly, no masses, no JVD, no bruits. BREAST: Deferred. CHEST: No tenderness, no crepitus, no paradoxical movement, no retractions. LUNGS: Clear, well-ventilated, symmetric, no rales, no wheezing, no rhonchi, no stridor, good breath sounds bilaterally. HEART: Regular rate, regular rhythm, no murmur, no gallops. VASCULAR: No peripheral edema. ABDOMEN: Soft, positive bowel sounds, nondistended, no guarding, nontender, no rebound, no masses no hepatomegaly, no splenomegaly, no Robles's sign, no hernias. RECTAL: Deferred. GENITAL: Deferred. NEUROLOGICAL: Normal speech, gross motor function intact, gross sensory function intact. MUSCULOSKELETAL: Neck nontender, full range of motion, back nontender, full range of motion. EXTREMITIES: Nontender, full range of motion. SKIN: Color pink, dry, no turgor, no rash, no lacerations, no abrasions, no contusions. LYMPHATICS: Deferred. Results Laboratory and Microbiology Lab and Micro Result Laboratory Tests Test 06/07/24 16:41 White Blood Count 6.3 K/uL (4.8-10.8) Red Blood Count 5.29 MIL/uL (4.50-6.20) Hemoglobin 16.7 g/dL (14.0-18.0) Hematocrit 48.3 % (42-54) Mean Corpuscular Volume 91.3 fL (79-99) Mean Corpuscular Hemoglobin 31.6 pg (27.0-33.0) Mean Corpuscular Hemoglobin Concent 34.6 g/dL (32.0-36.0) Red Cell Distribution Width 11.7 % (11.0-15.5) Platelet Count 168 K/uL (130-400) Mean Platelet Volume 10.9 fL (7.5-10.5) H Immature Granulocyte % (Auto) 0.2 % (0-1) Neutrophils (%) (Auto) 70.4 % (40.0-77.0) Lymphocytes (%) (Auto) 19.3 % (21.0-51.0) L Monocytes (%) (Auto) 7.7 % (3.0-13.0) Eosinophils (%) (Auto) 1.8 % (0.0-8.0) Basophils (%) (Auto) 0.6 % (0.0-5.0) Neutrophils # (Auto) 4.4 K/uL (1.8-7.7) Lymphocytes # (Auto) 1.2 K/uL (1.0-4.8) Monocytes # (Auto) 0.5 K/uL (0.1-1.0) Eosinophils # (Auto) 0.11 K/uL (0.00-0.70) Basophils # (Auto) 0.04 K/uL (0.00-0.20) Absolute Immature Granulocyte (auto 0.01 K/uL (0-1) Nucleated Red Blood Cells 0.0 % (0.0-0.19) Sodium Level 144 mmol/L (136-145) Potassium Level 4.0 mmol/L (3.5-5.1) Chloride Level 105 mmol/L (101-111) Carbon Dioxide Level 33 mmol/L (21-32) H Blood Urea Nitrogen 14 mg/dL (7-18) Creatinine 1.0 mg/dL (0.5-1.3) Glomerular Filtration Rate Calc 100 mL/min (>90) Random Glucose 70 mg/dL (70-105) Total Calcium 9.0 mg/dL (8.5-10.1) Troponin I High Sensitivity 6 ng/L (4-75) Labs Reviewed?: Yes EKG/XRAY/US/CT/MRI EKG Comment 06/07/2024 time 4:31 p.m. Ventricular rate 86 Sinus rhythm [place] [address] wave elevation or depression MDM MDM: Differential diagnosis: Anxiety, STEMI, NSTEMI, ACS Patient is a 38-year-old gentleman coming in to be evaluated for anxiety attack. She states that he has extensive history of anxiety he is currently taking Lexapro and Vistaril. States he was with his girlfriend and started presenting with left-sided chest discomfort decided to come in to be evaluated. Cardiac workup negative for acute findings. Patient will be discharged with a diagnosis of anxiety attack. Throughout ER visit patient has been stable. ED Course Orders Procedure Category Date Status Time Cbc With Differential LAB 06/07/24 Complete 16:18 Basic Metabolic Panel LAB 06/07/24 Complete 16:18 Troponin I High LAB 06/07/24 Complete Sensitivity 16:18 12 Lead Ekg Tracing- EKG 06/07/24 Logged Technical 16:18 Vital Signs Date Time Temp Pulse Resp B/P (MAP) Pulse Ox O2 Delivery O2 Flow Rate FiO2 06/07/24 15:59 97.9 102 18 139/87 97 Room Air DX & DISP Disposition: Discharge Departure Impression: Primary Impression: Anxiety disorder Additional Impression: Panic attack Condition: Stable Additional Instructions: You have been reviewed in the emergency department at [facility] after presenting with chest pain. After considering your history, your risk factors, your EKG and your blood test troponins, have been found to be at very low risk less than (1 in 100) of having a major adverse cardiac event (like heart attack) in the near future. In the " low risk" group, the risks of doing further tests and treatment as the inpatient outweighs the benefits. In many patients in the low risk group for the test of any sort or unnecessary, however he should discuss this further with his general practitioner who will understand the medical and personal backgrounds better. Because we have never declared you" no risk" we would suggest. 1 returning for medical review if you have further episodes of chest pain/arm pain or other concerning symptoms like dizziness, collapse, palpitations or shortness of breath. 2. Following up with your local doctor who will consider the need for further testing and will also ensure that any modifiable risk factors you may have for heart disease are optimally managed. Patient will be discharged in stable condition at the moment discharge patient states , no chest pain Referrals: SHERRELL RODRIGUEZ (PCP) Time of Disposition: 17:14 MAYRA HAYNES MD Jun 07, 2024 17:15
--- NOTE | 2024-06-07 17:33 | EKG ---
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
[2024-06-07 17:47] VITALS: BP 135/83; PULSE 86; RESP 18; TEMP 97.8; O2SAT 97
== END 2024-06-07 17:48 | disposition home or self-care (01) ==
LOC: EDH 15:57
DX: F41.9 Anxiety disorder, unspecified (principal); Z79.52 Long term (current) use of systemic steroids; Z79.899 Other long term (current) drug therapy
CPT/HCPCS: 36415; 80048; 84484; 85025; 93005; 99284

== ENCOUNTER 2024-07-04 17:58 | Emergency (ER) | payer SELFPAY ==
[~2024-07-04] VITALS: Ht 162.6 cm; Wt 78.5 kg
[2024-07-04 18:07] VITALS: TEMP 98.8
--- NOTE | 2024-07-04 18:10 | ERN ---
ED Note History of Present Illness Stated Complaint: PALPITATIONS, SINUS PRESSURE Chief Complaint: Anxiety/Panic Attack Time Seen by MD: 18:06 Dictation: PATIENT IS A 38-YEAR-OLD MALE COMING IN WITH SEVERAL COMPLAINTS 1ST COMPLAINT IS HE IS HAVING HEART PALPITATIONS AND ANXIETY THAT IS STARTED 30 MINUTES PRIOR TO ARRIVAL. HE STATES HE WAS JUST SITTING AT HOME WHEN HE HAD THE ONSET OF THIS BUT HE HAS A HISTORY OF ANXIETY AND PANIC ATTACKS ACCORDING TO HIM. HE STATES NORMALLY HE WILL TAKE ALCOHOL AND PUT IN HIS HANDS AND THEN SMELL IT AND IT MAKES HIM SLOW HIS HEART DOWN AND HE FEELS BETTER. SECOND COMPLAINT IS HE SAID HE WAS EXPOSED TO INFLUENZA TWO DAYS AGO AND IS CONCERNED ABOUT THAT. THIRD COMPLAINT IS HE SAID HE HAS SINUS PRESSURE WHICH MAYBE RELATED TO THE INFLUENZA EXPOSURE. HE HAS NOT BEEN TO SEE HIS PRIMARY CARE DOCTOR Allergies: Coded Allergies: No Known Drug Allergies (Verified Allergy, Unknown, 12/28/18) Home Meds Active Scripts Hydroxyzine HCl (Hydroxyzine HCl) 25 Mg Tablet, 1 TAB PO BID for anxiety for 30 Days, #60 TAB 0 Refills Prov:CHARITY HUGHES 05/06/24 Clonazepam (Clonazepam) 1 Mg Tab.rapdis, 1 MG PO Q8H for anxiety for 2 Days, #4 TAB Prov:EMPERATRIZ LOOMIS MD 02/25/24 Albuterol Sulfate (Ventolin Hfa/Proventil Hfa/Proair Hfa) 90 Mcg Puff, 1 PUFF IH Q4H PRN for SHORTNESS OF BREATH for 5 Days, #1 INH 0 Refills PHARMACY TO DISPENSE 1 INHALER FOR USE Prov:DAXA FIGUEROA 02/18/24 Methylprednisolone (Methylprednisolone) 4 Mg Tab.ds.pk, 4 MG PO DAILY for 5 Days, #1 PACK Prov:DAXA FIGUEROA 02/18/24 Azithromycin (Azithromycin) 1 Gram Packet, 1 GM PO DAILY for 5 Days, #1 PKT Prov:DAXA FIGUEROA 02/18/24 Pantoprazole Sodium (Protonix) 40 Mg Ectab, 40 MG PO DAILY for 30 Days, #30 TAB.EC Prov:MAYRA HAYNES MD 01/15/24 Hydroxyzine HCl (Hydroxyzine HCl) 25 Mg Tablet, 25 MG PO HS PRN for INSOMNIA for 30 Days, #12 TAB 1 Refill Prov:KATHE MILLS 09/29/23 Buspirone HCl (Buspirone HCl) 10 Mg Tablet, 10 MG PO TID, #90 TAB 1 Refill Prov:KATHE MILLS 09/29/23 Past Medical History Past Medical History: Anxiety, Depression Additional Past Medical Hx: KIP Surgical History: None Surgical History Other: RT HAND SX Family History: DM, HTN Social History: ETOH, Lives with family RN Note Reviewed/Agreed w/PFSH: Yes Review of System Dictation CONSTITUTIONAL: NEGATIVE EXCEPT FOR HPI HEAD/FACE: NEGATIVE EXCEPT FOR HPI EENT: NEGATIVE EXCEPT FOR HPI SINUS PRESSURE RESPIRATORY: NEGATIVE EXCEPT FOR HPI PALPITATIONS GASTROINTESTINAL/ABDOMINAL: NEGATIVE EXCEPT FOR HPI GENITOURINARY: NEGATIVE EXCEPT FOR HPI MUSCULOSKELETAL: NEGATIVE EXCEPT FOR HPI INTEGUMENTARY: NEGATIVE EXCEPT FOR HPI NEUROLOGICAL/PSYCH: NEGATIVE EXCEPT FOR HPI ANXIETY HEMATOLOGIC/LYMPHATIC: NEGATIVE EXCEPT FOR HPI ALL SYSTEMS NEGATIVE, EXCEPT NOTED ABOVE. 13 POINT REVIEW OF SYSTEMS ASSESSED AND ALL NEGATIVE EXCEPT FOR ABOVE. Initial Vital Sign VS Vital Signs Date Time Temp Pulse Resp B/P (MAP) Pulse Ox O2 Delivery O2 Flow Rate FiO2 07/04/24 18:00 98.2 82 16 155/98 99 Room Air 0 07/04/24 18:07 21 Physical Exam Dictation VITAL SIGNS REVIEWED GENERAL APPEARANCE: ALERT, ORIENTED X 3, PATIENT NOTED TO HAVE UNDERLYING ANXIETY HOWEVER NO PAIN AT THIS TIME HEAD AND FACE: NON-TRAUMATIC. EYES: PERRL, PINK CONJUNCTIVAS, EYELID NO TRAUMA, ANTERIOR CHAMBER WITH ARCUS SENILIS. EARS: PINNAS INTACT AND NO SIGNS OF TRAUMA OR ERYTHEMA EAR CANALS CLEAR AND NO DISCHARGE TM NO ERYTHEMA NOSE: NO DISCHARGE, NO BLEEDING. OROPHARYNX: MOUTH NORMAL, TONGUE PINK, PHARYNX CLEAR,NO ERYTHEMA, TONSILS NO EXUDATES, NO ABSCESSES NOTED, MUCOUS MEMBRANE MOIST NECK: SUPPLE, NON-TENDER, NO THYROMEGALY, NO MASSES, NO JVD, NO BRUITS BREAST:DEFERRED CHEST:NO TENDERNESS, NO CREPITUS, NO PARADOXICAL MOVEMENT, NO RETRACTIONS LUNGS:CLEAR, WELL-VENTILATED, SYMMETRIC, NO RALES, NO WHEEZING, NO RHONCHI, NO STRIDOR, GOOD BREATH SOUNDS BILATERALLY HEART: REGULAR RATE, REGULAR RHYTHM, NO MURMUR, NO GALLOPS VASCULAR: NO PERIPHERAL EDEMA, ABDOMEN: SOFT, POSITIVE BOWEL SOUNDS, NONDISTENDED, NO GUARDING, NONTENDER, NO REBOUND, NO MASSES NO HEPATOMEGALY, NO SPLENOMEGALY, NO STEELE'S S IGN, NO HERNIAS. RECTAL: DEFERRED GENITAL: DEFERRED NEUROLOGICAL: NORMAL SPEECH, MOTOR FUNCTION INTACT, SENSORY FUNCTION INTACT DENIES SUICIDAL OR HOMICIDAL IDEATION MUSCULOSKELETAL: NECK NONTENDER, FULL RANGE OF MOTION, BACK NONTENDER, FULL RANGE OF MOTION, EXTREMITIES: NONTENDER, FULL RANGE OF MOTION SKIN: COLOR PINK, DRY, NO TURGOR, NO RASH, NO LACERATIONS, NO ABRASIONS, NO CO NTUSIONS. LYMPHATIC: DEFERRED Results (Laboratory/Radiology) Laboratory/Radiology Laboratory Tests Test 07/04/24 18:14 07/04/24 18:29 Influenza Type A Antigen Negative For Type A Influenza Type B Antigen Negative For Type B White Blood Count 7.6 K/uL (4.8-10.8) Red Blood Count 5.20 MIL/uL (4.50-6.20) Hemoglobin 16.4 g/dL (14.0-18.0) Hematocrit 46.6 % (42-54) Mean Corpuscular Volume 89.6 fL (79-99) Mean Corpuscular Hemoglobin 31.5 pg (27.0-33.0) Mean Corpuscular Hemoglobin Concent 35.2 g/dL (32.0-36.0) Red Cell Distribution Width 11.9 % (11.0-15.5) Platelet Count 158 K/uL (130-400) Mean Platelet Volume 10.7 fL (7.5-10.5) H Immature Granulocyte % (Auto) 0.4 % (0-1) Neutrophils (%) (Auto) 62.8 % (40.0-77.0) Lymphocytes (%) (Auto) 24.5 % (21.0-51.0) Monocytes (%) (Auto) 8.3 % (3.0-13.0) Eosinophils (%) (Auto) 3.3 % (0.0-8.0) Basophils (%) (Auto) 0.7 % (0.0-5.0) Neutrophils # (Auto) 4.7 K/uL (1.8-7.7) Lymphocytes # (Auto) 1.9 K/uL (1.0-4.8) Monocytes # (Auto) 0.6 K/uL (0.1-1.0) Eosinophils # (Auto) 0.25 K/uL (0.00-0.70) Basophils # (Auto) 0.05 K/uL (0.00-0.20) Absolute Immature Granulocyte (auto 0.03 K/uL (0-1) Nucleated Red Blood Cells 0.0 % (0.0-0.19) Sodium Level 141 mmol/L (136-145) Potassium Level 3.6 mmol/L (3.5-5.1) Chloride Level 102 mmol/L (101-111) Carbon Dioxide Level 30 mmol/L (21-32) Blood Urea Nitrogen 13 mg/dL (7-18) Creatinine 0.9 mg/dL (0.5-1.3) Glomerular Filtration Rate Calc 114 mL/min (>90) Random Glucose 86 mg/dL (70-105) Total Calcium 8.9 mg/dL (8.5-10.1) Troponin I High Sensitivity < 4 ng/L (4-75) L Labs Reviewed?: Yes EKG Comment: EKG SINUS RHYTHM/HEART RATE 82/RIGHT AXIS DEVIATION/NO ECTOPY ED Course ED Course Orders Procedure Category Date Status Time Influenza Type A & B, LAB 07/04/24 Complete Rapid 18:06 Cbc With Differential LAB 07/04/24 Complete 18:06 Troponin I High LAB 07/04/24 Complete Sensitivity 18:06 12 Lead Ekg Tracing- EKG 07/04/24 Logged Technical 18:06 Basic Metabolic Panel LAB 07/04/24 Complete 18:06 Vital Signs Date Time Temp Pulse Resp B/P (MAP) Pulse Ox O2 Delivery O2 Flow Rate FiO2 07/04/24 19:07 79 18 119/71 98 Room Air* 0 21 07/04/24 18:07 98.8 84 20 128/78 98 Room Air* 0 21 07/04/24 18:00 98.2 82 16 155/98 99 Room Air 0 1915, PATIENT IS HEMODYNAMICALLY STABLE NO CHEST PAIN AT THIS TIME DISCHARGED HOME WITH A ANXIETY REACTION AND TOLD TO SEE HIS PRIMARY CARE DOCTOR FOR FOLLOW UP. HEART Score Response (Comments) Value EKG: Normal 0 Age: < 45yrs (0) 0 Risk Factors: No known risk factors (0) 0 Initial Troponin: Normal limit (0) 0 Total 0 Medical Decision Making MDM MDM: DIFFERENTIAL DIAGNOSIS: ACS/AMI/INFLUENZA/ANXIETY/ELECTROLYTE IMBALANCE/DEHYDRATION RATIONALE: TESTS CONSIDERED AND ORDERED SECONDARY TO SHARED DECISION MAKING INCLUDE: EKG/LABS PREVIOUS OUTSIDE RECORDS REVIEWED: OLD ER VISITS. REVIEWED RISK OF COMPLICATION AND/OR MORBIDITY OR MORTALITY OF PATIENT MANAGEMENT: NONE MEDICATIONS-PER MEDICATION RECONCILIATION NEED FOR HOSPITALIZATION: PATIENT DOES NOT MEET CRITERIA FOR HOSPITALIZATION. NONE NEED FOR EMERGENCY MAJOR/MINOR SURGERY: NO THERE ARE NO SOCIAL CONCERNS WITH THIS PATIENT. PRESCRIPTION DRUG MANAGEMENT NONE PRESCRIPTIONS WILL INCLUDE SYMPTOMATIC CARE PATIENT'S PRIOR EXTERNAL MEDICAL RECORDS FROM OTHER ER VISITS WERE REVIEWED BY ME INDICATED. PRIOR TESTING AND RESULTS FROM PREVIOUS VISITS WERE REVIEWED. PRIOR TESTS WERE TAKEN INTO ACCOUNT WITH MEDICAL DECISION MAKING AND RESOURCE UTILIZATION, INDEPENDENT HISTORIAN/HISTORIANS WERE USED TO OBTAIN COMPLETE MEDICAL HISTORY. I INDEPENDENTLY INTERPRETED THE TEST THAT WERE PERFORMED, RESULTS WERE REVIEWED BY ME AND CONSIDERED FINDINGS ON RADIOLOGY IF ORDERED. MEDICAL MANAGEMENT AND EXAMINATION INTERPRETATION DISCUSSIONS WERE HAD BY ME WITH OTHER QUALIFIED HEALTHCARE PROFESSIONALS INDICATED FOR THE PATIENT'S CARE. DX & DISP Disposition: Discharge Departure Impression: Primary Impression: Panic attack Condition: Stable Referrals: SHERRELL RODRIGUEZ (PCP) Time of Disposition: 19:18 I have reviewed the case, and I agree with, Diagnosis and Plan ANASTASIYA DENNEY NP Jul 04, 2024 18:10
[2024-07-04 18:38] LABS: INFLUENZA TYPE A Negative For Type A (NEGATIVE); INFLUENZA TYPE B Negative For Type B (NEGATIVE)
[2024-07-04 18:48] LABS: BASOPHILS # (AUTO) 0.05 K/uL (0.00-0.20); BASOPHILS % (AUTO) 0.7 % (0.0-5.0); EOSINOPHILS # (AUTO) 0.25 K/uL (0.00-0.70); EOSINOPHILS % (AUTO) 3.3 % (0.0-8.0); HEMATOCRIT 46.6 % (42-54); IMMATURE GRANULOCYTE ABSOLUTE 0.03 K/uL (0-1); LYMPHOCYTES # (AUTO) 1.9 K/uL (1.0-4.8); LYMPHOCYTES % (AUTO) 24.5 % (21.0-51.0); MEAN CORPUSCULAR HEMOGLOBIN 31.5 pg (27.0-33.0); MEAN CORPUSCULAR HGB CONC 35.2 g/dL (32.0-36.0); MEAN CORPUSCULAR VOLUME 89.6 fL (79-99); MONOCYTES # (AUTO) 0.6 K/uL (0.1-1.0); MONOCYTES % (AUTO) 8.3 % (3.0-13.0); NEUTROPHILS # (AUTO) 4.7 K/uL (1.8-7.7); NEUTROPHILS % (AUTO) 62.8 % (40.0-77.0); PLATELET COUNT (AUTO) 158 K/uL (130-400); RED CELL DISTRIBUTION WIDTH 11.9 % (11.0-15.5); WHITE BLOOD COUNT (AUTO) 7.6 K/uL (4.8-10.8)
[2024-07-04 19:00] LABS: CREATININE 0.9 mg/dL (0.5-1.3); POTASSIUM 3.6 mmol/L (3.5-5.1)
[2024-07-04 19:07] VITALS: BP 119/71; PULSE 79; RESP 18; O2SAT 98
--- NOTE | 2024-07-04 19:46 | EKG ---
[facility] Test Date: 2024-07-04 Test Time: 17:55:01 Pat Name: YANETH MUSTAFA Department: ED Room: Gender: M Contract Engineer: [id number] : 1985 Requested By: ANASTASIYA DENNEY Order Number: [id number] Reading MD: Krishna Flores Measurements Intervals [place] Rate: 80 P: 55 FL: 165 QRS: 159 QRSD: 110 T: 38 QT: 408 QTc: 472 Interpretive Statements Sinus rhythm Right axis deviation Compared to ECG 06/07/2024 16:31:25 Right-axis deviation now present Posterior QRS axis no longer present ST (T wave) deviation no longer present Electronically Signed On 07-05-2024 10:12:28 CHANGE MANAGEMENT FACILITATOR by Krishna Flores Please click the below link to view image of tracing.
== END 2024-07-04 19:26 | disposition home or self-care (01) ==
LOC: EDH 17:58
DX: F41.0 Panic disorder [episodic paroxysmal anxiety] (principal); F32.A Depression, unspecified; Z79.52 Long term (current) use of systemic steroids; Z79.899 Other long term (current) drug therapy
CPT/HCPCS: 36415; 80048; 84484; 85025; 87804; 93005; 99284

== ENCOUNTER 2024-07-09 13:57 | Emergency (ER) | payer SELFPAY ==
[~2024-07-09] VITALS: Ht 157.5 cm; Wt 80.3 kg
--- NOTE | 2024-07-09 15:30 | ERN ---
General Chief Complaint: Anxiety/Panic Attack Stated Complaint: ALLERGIC REACTION Time Seen by MD: 14:11 Source: patient History of Present Illness Initial Comments Patient is a 38-year-old gentleman coming in with left-sided chest pain. Patient states that the chest pain began earlier continued throughout the day and decided to come in for further evaluation. Patient states that the chest pain was accompanied with hot sensation that radiated up the left side of his neck. Allergies: Coded Allergies: No Known Drug Allergies (Verified Allergy, Unknown, 12/28/18) Home Meds Active Scripts Hydroxyzine HCl (Hydroxyzine HCl) 25 Mg Tablet, 1 TAB PO BID for anxiety for 30 Days, #60 TAB 0 Refills Prov:CHARITY HUGHES 05/06/24 Clonazepam (Clonazepam) 1 Mg Tab.rapdis, 1 MG PO Q8H for anxiety for 2 Days, #4 TAB Prov:EMPERATRIZ LOOMIS MD 02/25/24 Albuterol Sulfate (Ventolin Hfa/Proventil Hfa/Proair Hfa) 90 Mcg Puff, 1 PUFF IH Q4H PRN for SHORTNESS OF BREATH for 5 Days, #1 INH 0 Refills PHARMACY TO DISPENSE 1 INHALER FOR USE Prov:DAXA FIGUEROA 02/18/24 Methylprednisolone (Methylprednisolone) 4 Mg Tab.ds.pk, 4 MG PO DAILY for 5 Days, #1 PACK Prov:DAXA FIGUEROA 02/18/24 Azithromycin (Azithromycin) 1 Gram Packet, 1 GM PO DAILY for 5 Days, #1 PKT Prov:DAXA FIGUEROA 02/18/24 Pantoprazole Sodium (Protonix) 40 Mg Ectab, 40 MG PO DAILY for 30 Days, #30 TAB.EC Prov:MAYRA HAYNES MD 01/15/24 Hydroxyzine HCl (Hydroxyzine HCl) 25 Mg Tablet, 25 MG PO HS PRN for INSOMNIA for 30 Days, #12 TAB 1 Refill Prov:KATHE MILLS 09/29/23 Buspirone HCl (Buspirone HCl) 10 Mg Tablet, 10 MG PO TID, #90 TAB 1 Refill Prov:KATHE MILLS 09/29/23 Past Medical History Past Medical History: Anxiety, Depression Medical History Other: KIP Past Surgical History: None Surgical History Other: RT HAND SX Family History Family History: DM, HTN Social History Social History: ETOH, Lives with family ROS Dictation CONSTITUTIONAL: No chills, no fever, no weakness, no diaphoresis, no malaise. HEAD/FACE: No signs of trauma. EENT: No eye pain, no blurred vision, no tearing, no double vision, no ear pain, no ear discharge, no nose pain, no nasal congestion, no throat pain, no throat swelling, no mouth pain. RESPIRATORY: No cough, no orthopnea, no SOB, no stridor, no wheezing. CARDIOVASCULAR: chest pain, no edema, palpitations, no syncope. GASTROINTESTINAL/ABDOMINAL: No abdominal pain, no constipation, no diarrhea, no nausea, no vomiting. GENITOURINARY: No abnormal discharge, no dysuria, no frequent urination, no h ematuria. No complaints of pain in the genitals. MUSCULOSKELETAL: No back pain, no gout, no joint pain, no joint swelling, no muscle pain, no muscle stiffness, no neck pain. INTEGUMENTARY: No change in color, no change in hair/nails, no dryness, no les ion, no lumps, no rash. NEUROLOGICAL/PSYCH: No anxiety, not depressed, no emotional problem, no headache, no numbness, no pre-existing deficit, no history of seizures, no tremors, no weakness. HEMATOLOGIC/LYMPHATIC: Not anemic, no history of blood clots, no apparent bleeding, no bruising, glands not swollen. All Systems Negative, Except as Noted. Physical Exam Physical Exam Dictation VITAL SIGNS: Reviewed. GENERAL APPEARANCE: Alert, oriented x3, no acute distress, obese. HEAD AND FACE: Non-traumatic. EYES: PERRL, pink conjunctivas, eyelid no trauma, anterior chamber clear. EARS: Pinnas intact and no signs of trauma or erythema. Ear canals clear and no discharge. TMs no erythema. NOSE: No discharge, no bleeding. OROPHARYNX: Mouth normal, teeth no caries, tongue pink. Pharynx clear, no erythema. Tonsils no exudates, no abscesses noted. Mucous membrane moist. NECK: Supple, non-tender, no thyromegaly, no masses, no JVD, no bruits. BREAST: Deferred. CHEST: No tenderness, no crepitus, no paradoxical movement, no retractions. LUNGS: Clear, well-ventilated, symmetric, no rales, no wheezing, no rhonchi, no stridor, good breath sounds bilaterally. HEART: Regular rate, regular rhythm, no murmur, no gallops. VASCULAR: No peripheral edema. ABDOMEN: Soft, positive bowel sounds, nondistended, no guarding, nontender, no rebound, no masses no hepatomegaly, no splenomegaly, no Robles's sign, no hernias. RECTAL: Deferred. GENITAL: Deferred. NEUROLOGICAL: Normal speech, gross motor function intact, gross sensory function intact. MUSCULOSKELETAL: Neck nontender, full range of motion, back nontender, full range of motion. EXTREMITIES: Nontender, full range of motion. SKIN: Color pink, dry, no turgor, no rash, no lacerations, no abrasions, no contusions. LYMPHATICS: Deferred. Results Laboratory and Microbiology Lab and Micro Result Laboratory Tests Test 07/09/24 15:01 07/09/24 15:37 Urine Color COLORLESS (YELLOW) Urine Appearance CLEAR (CLEAR) Urine pH 6.0 (5.0-8.0) Urine Specific [place] 1.002 (1.001-1.031) Urine Protein NEGATIVE mg/dL (NEGATIVE) Urine Glucose (UA) 300 mg/dL (NEGATIVE) H Urine Ketones NEGATIVE mg/dL (NEGATIVE) Urine Occult Blood NEGATIVE (NEGATIVE) Urine Nitrate NEGATIVE (NEGATIVE) Urine Bilirubin NEGATIVE mg/dL (NEGATIVE) Urine Urobilinogen 0.2 mg/dL (0.2-1.0) Urine Leukocyte Esterase NEGATIVE Wm/uL Urine RBC 2-5 /HPF (0-1) H Urine WBC 0-1 /HPF (0-1) Urine Bacteria None /HPF (None Seen) Urine Opiates Screen NEGATIVE (NEGATIVE) Urine Barbiturates Screen NEGATIVE (NEGATIVE) Urine Phencyclidine Screen NEGATIVE (NEGATIVE) Urine Amphetamines Screen NEGATIVE (NEGATIVE) Urine Benzodiazepines Screen NEGATIVE (NEGATIVE) Urine Cocaine Screen NEGATIVE (NEGATIVE) Urine Marijuana (THC) Screen NEGATIVE (NEGATIVE) White Blood Count 6.0 K/uL (4.8-10.8) Red Blood Count 5.18 MIL/uL (4.50-6.20) Hemoglobin 16.3 g/dL (14.0-18.0) Hematocrit 46.7 % (42-54) Mean Corpuscular Volume 90.2 fL (79-99) Mean Corpuscular Hemoglobin 31.5 pg (27.0-33.0) Mean Corpuscular Hemoglobin Concent 34.9 g/dL (32.0-36.0) Red Cell Distribution Width 11.7 % (11.0-15.5) Platelet Count 167 K/uL (130-400) Mean Platelet Volume 11.0 fL (7.5-10.5) H Immature Granulocyte % (Auto) 0.2 % (0-1) Neutrophils (%) (Auto) 82.3 % (40.0-77.0) H Lymphocytes (%) (Auto) 11.7 % (21.0-51.0) L Monocytes (%) (Auto) 5.0 % (3.0-13.0) Eosinophils (%) (Auto) 0.5 % (0.0-8.0) Basophils (%) (Auto) 0.3 % (0.0-5.0) Neutrophils # (Auto) 4.9 K/uL (1.8-7.7) Lymphocytes # (Auto) 0.7 K/uL (1.0-4.8) L Monocytes # (Auto) 0.3 K/uL (0.1-1.0) Eosinophils # (Auto) 0.03 K/uL (0.00-0.70) Basophils # (Auto) 0.02 K/uL (0.00-0.20) Absolute Immature Granulocyte (auto 0.01 K/uL (0-1) Nucleated Red Blood Cells 0.0 % (0.0-0.19) Prothrombin Time 10.6 SEC (9.6-11.6) Prothromb Time International Ratio 0.94 (0.85-1.15) Activated Partial Thromboplast Time 29.7 SEC (26.3-35.5) Sodium Level 144 mmol/L (136-145) Potassium Level 3.5 mmol/L (3.5-5.1) Chloride Level 107 mmol/L (101-111) Carbon Dioxide Level 30 mmol/L (21-32) Blood Urea Nitrogen 11 mg/dL (7-18) Creatinine 1.0 mg/dL (0.5-1.3) Glomerular Filtration Rate Calc 100 mL/min (>90) Random Glucose 141 mg/dL (70-105) H Total Calcium 8.8 mg/dL (8.5-10.1) Magnesium Level 1.80 mg/dL (1.80-2.40) Total Creatine Kinase 166 U/L (21-232) Troponin I High Sensitivity < 4 ng/L (4-75) L B-Type Natriuretic Peptide 18 pg/mL (0-100) Labs Reviewed?: Yes EKG/XRAY/US/CT/MRI EKG Comment 07/09/2024 time 3:33 p.m. Ventricular rate 93 Sinus rhythm [place] [address] wave elevation or depression X-RAY Comment [facility] [address] [place] [address] IMAGING REPORT Signed PATIENT: YANETH MUSTAFA MR#: [id number] : 1985 SEX: M AGE: 38 LOCATION: [facility] ORDER 18 STATUS: REG ER REPORT#: [id number] SERVICE 17 REASON: cp ORDERING PHYSICIAN: MAYRA HAYNES MD PROCEDURE: CXR1VW - CHEST 1VW CHEST 1VW HISTORY: Chest pain COMPARISON: None FINDINGS: A frontal projection of the chest was obtained. Prominent interstitial markings are seen with possible superimposed infiltrates. The heart is normal in size. Degenerative changes are seen. No evidence of aortic calcification is seen. IMPRESSION: 1. Prominent interstitial markings are seen with possible superimposed infiltrates. DICTATED BY: DUSTIN PRADO MD DATE: 07/09/241618 ELECTRONICALLY SIGNED BY: DUSTIN PRADO MD DATE: 07/09/24 16[facility] MDM: Differential diagnosis: URI, walking pneumonia, Patient is a 38-year-old male coming in to be evaluated for right-sided disc omfort. He states that the symptoms has been ongoing for a couple of days. Laboratory workup negative for acute findings. Patient will be discharged with antibiotics has a chest x-ray did disclose possible right-sided walking pneumonia. ED Course Orders Procedure Category Date Status Time Cbc With Differential LAB 07/09/24 Complete 15:18 Prothrombin Time With LAB 07/09/24 Complete INR 15:18 B-Type Natriuretic LAB 07/09/24 Complete Peptide 15:18 Chest 1vw RAD 07/09/24 Resulted 15:18 12 Lead Ekg Tracing- EKG 1/9/25 Logged Technical 15:18 Magnesium LAB 07/09/24 Complete 15:18 Creatine Kinase, Total LAB 07/09/24 Complete 15:18 Troponin I High LAB 07/09/24 Complete Sensitivity 15:18 Urinalysis Profile LAB 07/09/24 Complete 15:18 Partial LAB 07/09/24 Complete Thromboplastin Time 15:18 Basic Metabolic Panel LAB 07/09/24 Complete 15:18 Drug Screen Urine LAB 07/09/24 Complete 15:18 Vital Signs Date Time Temp Pulse Resp B/P (MAP) Pulse Ox O2 Delivery O2 Flow Rate FiO2 07/09/24 14:08 98.2 95 19 159/82 98 Room Air* 0 21 07/09/24 14:08 98.2 95 19 159/82 98 Room Air DX & DISP Disposition: Discharge Departure Impression: Primary Impression: Panic disorder Additional Impressions: Anxiousness, Walking pneumonia Condition: Stable Scripts Doxycycline Hyclate (Doxycycline Hyclate) 100 Mg Capsule 1 CAP PO BID for 10 Days, #20 CAP 0 Refills Prov: MAYRA HAYNES MD 07/09/24 Additional Instructions: You have been reviewed in the emergency department at [facility] after presenting with chest pain. After considering your history, your risk factors, your EKG and your blood test troponins, have been found to be at very low risk less than (1 in 100) of having a major adverse cardiac event (like heart attack) in the near future. In the " low risk" group, the risks of doing further tests and treatment as the inpatient outweighs the benefits. In many patients in the low risk group for the test of any sort or unnecessary, however he should discuss this further with his general practitioner who will understand the medical and personal backgrounds better. Because we have never declared you" no risk" we would suggest. 1 returning for medical review if you have further episodes of chest pain/arm pain or other concerning symptoms like dizziness, collapse, palpitations or shortness of breath. 2. Following up with your local doctor who will consider the need for further testing and will also ensure that any modifiable risk factors you may have for heart disease are optimally managed. Patient will be discharged in stable condition at the moment discharge patient states , no chest pain Referrals: SELF,REFERRAL (PCP) MAYRA HAYNES MD Time of Disposition: 16:38 MAYRA HAYNES MD 9, 2025 15:30
[2024-07-09 15:49] LABS: BASOPHILS # (AUTO) 0.02 K/uL (0.00-0.20); BASOPHILS % (AUTO) 0.3 % (0.0-5.0); EOSINOPHILS # (AUTO) 0.03 K/uL (0.00-0.70); EOSINOPHILS % (AUTO) 0.5 % (0.0-8.0); HEMATOCRIT 46.7 % (42-54); IMMATURE GRANULOCYTE ABSOLUTE 0.01 K/uL (0-1); LYMPHOCYTES # (AUTO) 0.7 K/uL (1.0-4.8); LYMPHOCYTES % (AUTO) 11.7 % (21.0-51.0); MEAN CORPUSCULAR HEMOGLOBIN 31.5 pg (27.0-33.0); MEAN CORPUSCULAR HGB CONC 34.9 g/dL (32.0-36.0); MEAN CORPUSCULAR VOLUME 90.2 fL (79-99); MONOCYTES # (AUTO) 0.3 K/uL (0.1-1.0); NEUTROPHILS # (AUTO) 4.9 K/uL (1.8-7.7); NEUTROPHILS % (AUTO) 82.3 % (40.0-77.0); PLATELET COUNT (AUTO) 167 K/uL (130-400); RED BLOOD CELL COUNT(AUTO) 5.18 MIL/uL (4.50-6.20); RED CELL DISTRIBUTION WIDTH 11.7 % (11.0-15.5)
[2024-07-09 15:57] LABS: APPEARANCE,URINE CLEAR (CLEAR); BILIRUBIN,URINE NEGATIVE (NEGATIVE); COLOR,URINE COLORLESS (YELLOW); GLUCOSE, URINE (UA) 300 mg/dL (NEGATIVE); KETONES,URINE NEGATIVE (NEGATIVE); LEUKOCYTE ESTERASE ,URINE NEGATIVE Leu/uL (NEGATIVE); NITRATE,URINE NEGATIVE (NEGATIVE); OCCULT BLOOD,URINE NEGATIVE (NEGATIVE); PROTEIN,URINE NEGATIVE (NEGATIVE); UROBILINOGEN,URINE 0.2 mg/dL (0.2-1.0)
[2024-07-09 15:58] LABS: ADD UA MICROSCOPIC YES
[2024-07-09 15:59] LABS: WBC,URINE 0-1 /HPF (0-1)
[2024-07-09 15:59] LABS: POTASSIUM 3.5 mmol/L (3.5-5.1)
[2024-07-09 16:01] LABS: INR 0.94 (0.85-1.15); PROTHROMBIN TIME 10.6 SEC (9.6-11.6)
[2024-07-09 16:02] LABS: PARTIAL THROMBOPLASTIN TIME 29.7 SEC (26.3-35.5)
[2024-07-09 16:03] LABS: AMPHET/METH SCREEN,URINE NEGATIVE (NEGATIVE); BARBITURATE SCREEN, URINE NEGATIVE (NEGATIVE); BENZODIAZEPINES SCREEN,URINE NEGATIVE (NEGATIVE); CANNABINOID SCREEN,URINE NEGATIVE (NEGATIVE); COCAINE SCREEN,URINE NEGATIVE (NEGATIVE); OPIATE SCREEN,URINE NEGATIVE (NEGATIVE); PHENCYCLIDINE SCREEN,URINE NEGATIVE (NEGATIVE)
[2024-07-09 16:09] LABS: MAGNESIUM 1.8 mg/dL (1.80-2.40)
[2024-07-09 16:10] LABS: B-TYPE NATRIURETIC PEPTIDE 18 pg/mL (0-100)
--- NOTE | 2024-07-09 16:22 | HMCIMG ---
CHEST 1VW HISTORY: Chest pain COMPARISON: None FINDINGS: A frontal projection of the chest was obtained. Prominent interstitial markings are seen with possible superimposed infiltrates. The heart is normal in size. Degenerative changes are seen. No evidence of aortic calcification is seen. IMPRESSION: 1. Prominent interstitial markings are seen with possible superimposed infiltrates.
[2024-07-09 16:37] VITALS: BP 147/79; PULSE 88; RESP 19; TEMP 98.2; O2SAT 98
[2024-07-09] MEDS ORDERED: DOXY100C5 PO (16:39)
--- NOTE | 2024-07-10 06:18 | EKG ---
[facility] Test Date: 2024-07-09 Test Time: 15:33:12 Pat Name: YANETH MUSTAFA Department: ED Room: Gender: Male Credentials Specialist: [id number] : 1985 Requested By: MAYRA HAYNES Order Number: [id number] Reading MD: Measurements Intervals [place] Rate: 93 P: 55 CT: 151 QRS: 177 QRSD: 105 T: 26 QT: 383 QTc: 476 Interpretive Statements Sinus rhythm Right axis deviation No previous ECG available for comparison Please click the below link to view image of tracing.
== END 2024-07-09 16:47 | disposition home or self-care (01) ==
LOC: EDH 13:57
DX: F41.0 Panic disorder [episodic paroxysmal anxiety] (principal); J18.9 Pneumonia, unspecified organism; F32.A Depression, unspecified; Z79.52 Long term (current) use of systemic steroids; Z79.899 Other long term (current) drug therapy
CPT/HCPCS: 36415; 71045; 80048; 80305; 81001; 82550; 83735; 83880; 84484; 85025; 85610; 85730; 93005; 99285

== ENCOUNTER 2024-07-25 20:34 | Emergency (ER) | payer BC ==
[~2024-07-25] VITALS: Ht 157.5 cm; Wt 78.0 kg
[~2024-07-25 20:34] MED LIST changes: +DOXY100C5 PO
--- NOTE | 2024-07-25 20:37 | NUR ---
UA CUP PROVIDED
[2024-07-25] MEDS ORDERED: HYDR-3830 PO (21:06)
--- NOTE | 2024-07-25 21:06 | ERN ---
General Chief Complaint: Anxiety/Panic Attack Stated Complaint: ANXIETY Time Seen by MD: 20:39 Time Seen by Midlevel: 20:39 Source: patient History of Present Illness Initial Comments Patient is a 38-year-old male with a an extensive past medical history of anxiety on escitalopram 20 mg presenting to the emergency department after he had a panic attack at home. Patient states his panic attacks have become more frequently. He was already discussed this with his primary care doctor who recently increased his dose of his escitalopram to 20 mg. Patient states the medication is no longer working. He specifically denies any suicide ideation, homicidal ideation, auditory/visual hallucinations. Patient just reports feeling anxious and would like something to help him feel little bit better until you can see his doctor. Denies any other symptoms at this time. Allergies: Coded Allergies: No Known Drug Allergies (Verified Allergy, Unknown, 12/28/18) Home Meds Active Scripts Hydroxyzine HCl (Hydroxyzine HCl) 10 Mg Tablet, 1 TAB PO BID for anxiety for 10 Days, #20 TAB 0 Refills Prov:AJ SCHWARZ 07/25/24 Doxycycline Hyclate (Doxycycline Hyclate) 100 Mg Capsule, 1 CAP PO BID for 10 Days, #20 CAP 0 Refills Prov:MAYRA HAYNES MD 07/09/24 Hydroxyzine HCl (Hydroxyzine HCl) 25 Mg Tablet, 1 TAB PO BID for anxiety for 30 Days, #60 TAB 0 Refills Prov:CHARITY HUGHES 05/06/24 Clonazepam (Clonazepam) 1 Mg Tab.rapdis, 1 MG PO Q8H for anxiety for 2 Days, #4 TAB Prov:EMPERATRIZ LOOMIS MD 02/25/24 Albuterol Sulfate (Ventolin Hfa/Proventil Hfa/Proair Hfa) 90 Mcg Puff, 1 PUFF IH Q4H PRN for SHORTNESS OF BREATH for 5 Days, #1 INH 0 Refills PHARMACY TO DISPENSE 1 INHALER FOR USE Prov:DAXA FIGUEROA 02/18/24 Methylprednisolone (Methylprednisolone) 4 Mg Tab.ds.pk, 4 MG PO DAILY for 5 Days, #1 PACK Prov:DAXA FIGUEROA 02/18/24 Azithromycin (Azithromycin) 1 Gram Packet, 1 GM PO DAILY for 5 Days, #1 PKT Prov:DAXA FIGUEROA 02/18/24 Pantoprazole Sodium (Protonix) 40 Mg Ectab, 40 MG PO DAILY for 30 Days, #30 TAB.EC Prov:MAYRA HAYNES MD 01/15/24 Hydroxyzine HCl (Hydroxyzine HCl) 25 Mg Tablet, 25 MG PO HS PRN for INSOMNIA for 30 Days, #12 TAB 1 Refill Prov:KATHE MILLS. 09/29/23 Buspirone HCl (Buspirone HCl) 10 Mg Tablet, 10 MG PO TID, #90 TAB 1 Refill Prov:KATHE MILLS. 09/29/23 Past Medical History Past Medical History: Anxiety, Depression Medical History Other: KIP Past Surgical History: None Surgical History Other: RT HAND SX Family History Family History: DM, HTN Social History Social History: ETOH, Lives with family ROS Dictation CONSTITUTIONAL: Negative except for HPI HEAD/FACE: Negative except for HPI EENT: Negative except for HPI RESPIRATORY: Negative except for HPI GASTROINTESTINAL/ABDOMINAL: Negative except for HPI GENITOURINARY: Negative except for HPI MUSCULOSKELETAL: Negative except for HPI INTEGUMENTARY: Negative except for HPI NEUROLOGICAL/PSYCH: Negative except for HPI HEMATOLOGIC/LYMPHATIC: Negative except for HPI All Systems Negative, Except as noted above. 13 point review of systems assessed and all negative except for above. Physical Exam Physical Exam Dictation Vital Signs reviewed General Appearance: Alert, oriented x 3, no acute distress, well developed, nourished. Head and Face: non-traumatic. Eyes: PERRL, pink conjunctivas, eyelid no trauma, anterior chamber with arcus senilis. Ears: Pinnas intact and no signs of trauma or erythema ear canals clear and no discharge TM no erythema Nose: No discharge, no bleeding. Oropharynx: Mouth normal, tongue pink, pharynx clear,no erythema, tonsils no exudates, no abscesses noted, mucous membrane moist Neck: Supple, non-tender, no thyromegaly, no masses, no JVD, no bruits Breast:Deferred Chest:No tenderness, no crepitus, no paradoxical movement, no retractions Lungs:Clear, well-ventilated, symmetric, no rales, no wheezing, no rhonchi, no stridor, good breath sounds bilaterally Heart: Regular rate, regular rhythm, no murmur, no gallops Vascular: no peripheral edema, Abdomen: Soft, positive bowel sounds, nondistended, no guarding, nontender, no rebound, no masses no hepatomegaly, no splenomegaly, no Robles's sign, no hernias. Rectal: Deferred Genital: Deferred Neurological: Normal speech, motor function intact, sensory function intact Musculoskeletal: Neck nontender, full range of motion, back nontender, full range of motion, Extremities: nontender, full range of motion Skin: Color pink, dry, no turgor, no rash, no lacerations, no abrasions, no contusions. Lymphatic: Deferred MDM MDM: Differential diagnosis: Anxiety reaction, depression, wellness examination There are no social concerns with this patient. Prescription drug management Prescriptions will include: Hydroxyzine Medical management and examination interpretation discussions were had by me with other qualified healthcare professionals as indicated for the patient's care. ED Course Orders Procedure Category Date Status Time Hydroxyzine 50mg Vial PHA 07/25/24 In Process (Atarax 50mg Inj) 21:30 Current Medications Medications (Trade) Dose Ordered Sig/Rebeca Route PRN Reason Start Time Stop Time Status Last Admin Dose Admin Hydroxyzine HCl (ATArax 50MG INJ) 50 mg ONCE IM 07/25/24 21:30 08/24/24 21:29 Vital Signs Date Time Temp Pulse Resp B/P (MAP) Pulse Ox O2 Delivery O2 Flow Rate FiO2 07/25/24 21:12 98.8 88 16 132/85 100 Room Air* 0 21 07/25/24 20:35 97.9 89 16 136/87 100 Room Air DX & DISP Disposition: Discharge Departure Impression: Primary Impression: Anxiety Condition: Stable Scripts Hydroxyzine HCl (Hydroxyzine HCl) 10 Mg Tablet 1 TAB PO BID for anxiety for 10 Days, #20 TAB 0 Refills Prov: AJ SCHWARZ 07/25/24 Referrals: SELF,REFERRAL (PCP) Time of Disposition: 21:05 I have reviewed the case, and I agree with, Diagnosis and Plan I performed the substantive portion of the visit. I have reviewed and personally made and approve the management plan that is documented in the note by myself or the ANDRADE. I acknowledge for responsibility for the patient's management plan. AJ SCHWARZ Jul 25, 2024 21:06
[2024-07-25] MEDS: hydrOXYzine 50MG VIAL 50 MG/ML VIAL IM SCH (21:21)
[2024-07-25 22:07] VITALS: BP 140/80; PULSE 79; RESP 16; TEMP 98.6; O2SAT 99
== END 2024-07-25 22:11 | disposition home or self-care (01) ==
LOC: EDH 20:34
DX: F41.9 Anxiety disorder, unspecified (principal); F32.A Depression, unspecified; Z79.52 Long term (current) use of systemic steroids; Z79.899 Other long term (current) drug therapy
CPT/HCPCS: 99284; 96372; J3410

== ENCOUNTER 2024-07-31 19:35 | Emergency (ER) | payer BC ==
[~2024-07-31] VITALS: Ht 157.5 cm; Wt 78.0 kg
[~2024-07-31 19:35] MED LIST changes: +HYDR-3830 PO
[2024-07-31 20:20] LABS: BASOPHILS # (AUTO) 0.04 K/uL (0.00-0.20); BASOPHILS % (AUTO) 0.5 % (0.0-5.0); EOSINOPHILS # (AUTO) 0.16 K/uL (0.00-0.70); EOSINOPHILS % (AUTO) 2.2 % (0.0-8.0); IMMATURE GRANULOCYTE ABSOLUTE 0.01 K/uL (0-1); LYMPHOCYTES % (AUTO) 26.7 % (21.0-51.0); MEAN CORPUSCULAR HEMOGLOBIN 30.9 pg (27.0-33.0); MEAN CORPUSCULAR HGB CONC 34.9 g/dL (32.0-36.0); MEAN CORPUSCULAR VOLUME 88.7 fL (79-99); MONOCYTES # (AUTO) 0.5 K/uL (0.1-1.0); MONOCYTES % (AUTO) 6.5 % (3.0-13.0); NEUTROPHILS # (AUTO) 4.7 K/uL (1.8-7.7); PLATELET COUNT (AUTO) 173 K/uL (130-400); RED CELL DISTRIBUTION WIDTH 11.7 % (11.0-15.5); WHITE BLOOD COUNT (AUTO) 7.4 K/uL (4.8-10.8)
[2024-07-31 20:31] LABS: POTASSIUM 3.6 mmol/L (3.5-5.1)
[2024-07-31 20:48] LABS: B-TYPE NATRIURETIC PEPTIDE 13 pg/mL (0-100)
--- NOTE | 2024-07-31 21:25 | HMCIMG ---
CHEST 1VW HISTORY: Chest pain COMPARISON: 07/19/2024 FINDINGS: A frontal projection of the chest was obtained. No acute pulmonary infiltrates is seen. The heart is normal in size. Prominent interstitial markings are seen. No evidence of aortic calcification is seen. IMPRESSION: 1. No acute pulmonary infiltrate is seen.
--- NOTE | 2024-07-31 22:18 | EKG ---
[facility] Test Date: 2024-07-31 Test Time: 19:42:58 Pat Name: YANETH MUSTAFA Department: ED Room: Gender: M Telecine Operator: [facility] : 1985 Requested By: NIRANJAN CHAPMAN Order Number: [id number] Reading MD: [place] Measurements Intervals [place] Rate: 73 P: 57 [place]: 152 QRS: 237 QRSD: 109 T: 46 QT: 429 QTc: 475 Interpretive Statements Sinus rhythm Markedly posterior QRS axis Compared to ECG 07/09/2024 15:33:12 Posterior QRS axis now present Right-axis deviation no longer present Electronically Signed On 08-01-2024 17:16:07 SVP by Los Boston Please click the below link to view image of tracing.
[2024-07-31 23:01] VITALS: BP 132/72; PULSE 74; RESP 18; TEMP 97.2; O2SAT 99
--- NOTE | 2024-07-31 23:01 | NUR ---
TOOK OVER PATIENT AT THIS TIME
--- NOTE | 2024-07-31 23:37 | ERN ---
General Chief Complaint: Chest Pain Stated Complaint: CHEST PAIN,SOB Time Seen by MD: 19:37 Time Seen by Midlevel: 19:37 Source: patient History of Present Illness Initial Comments Patient is a 38-year-old male with an extensive history of anxiety presenting to the emergency department with generalized chest pain that started 30 minutes prior to arrival. The pain is described as tightness to his muscles. He reports taking his anxiety medication but still feels discomfort. No other symptoms reported at this time Allergies: Coded Allergies: No Known Drug Allergies (Verified Allergy, Unknown, 12/28/18) Home Meds Active Scripts Hydroxyzine HCl (Hydroxyzine HCl) 10 Mg Tablet, 1 TAB PO BID for anxiety for 10 Days, #20 TAB 0 Refills Prov:AJ SCHWARZ 07/25/24 Doxycycline Hyclate (Doxycycline Hyclate) 100 Mg Capsule, 1 CAP PO BID for 10 Days, #20 CAP 0 Refills Prov:MAYRA HAYNES MD 07/09/24 Hydroxyzine HCl (Hydroxyzine HCl) 25 Mg Tablet, 1 TAB PO BID for anxiety for 30 Days, #60 TAB 0 Refills Prov:CHARITY HUGHES 05/06/24 Clonazepam (Clonazepam) 1 Mg Tab.rapdis, 1 MG PO Q8H for anxiety for 2 Days, #4 TAB Prov:EMPERATRIZ LOOMIS MD 02/25/24 Albuterol Sulfate (Ventolin Hfa/Proventil Hfa/Proair Hfa) 90 Mcg Puff, 1 PUFF IH Q4H PRN for SHORTNESS OF BREATH for 5 Days, #1 INH 0 Refills PHARMACY TO DISPENSE 1 INHALER FOR USE Prov:DAXA FIGUEROA 02/18/24 Methylprednisolone (Methylprednisolone) 4 Mg Tab.ds.pk, 4 MG PO DAILY for 5 Days, #1 PACK Prov:DAXA FIGUEROA 02/18/24 Azithromycin (Azithromycin) 1 Gram Packet, 1 GM PO DAILY for 5 Days, #1 PKT Prov:DAXA FIGUEROA 02/18/24 Pantoprazole Sodium (Protonix) 40 Mg Ectab, 40 MG PO DAILY for 30 Days, #30 TAB.EC Prov:MAYRA HAYNES MD 01/15/24 Hydroxyzine HCl (Hydroxyzine HCl) 25 Mg Tablet, 25 MG PO HS PRN for INSOMNIA for 30 Days, #12 TAB 1 Refill Prov:KATHE MILLS 09/29/23 Buspirone HCl (Buspirone HCl) 10 Mg Tablet, 10 MG PO TID, #90 TAB 1 Refill Prov:KATHE MILLS. 09/29/23 Past Medical History Past Medical History: Anxiety, Depression Medical History Other: KIP Past Surgical History: None Surgical History Other: RT HAND SX Family History Family History: DM, HTN Social History Social History: ETOH, Lives with family ROS Dictation CONSTITUTIONAL: Negative except for HPI HEAD/FACE: Negative except for HPI EENT: Negative except for HPI RESPIRATORY: Negative except for HPI GASTROINTESTINAL/ABDOMINAL: Negative except for HPI GENITOURINARY: Negative except for HPI MUSCULOSKELETAL: Negative except for HPI INTEGUMENTARY: Negative except for HPI NEUROLOGICAL/PSYCH: Negative except for HPI HEMATOLOGIC/LYMPHATIC: Negative except for HPI All Systems Negative, Except as noted above. 13 point review of systems assessed and all negative except for above. Physical Exam Physical Exam Dictation Vital Signs reviewed General Appearance: Alert, oriented x 3, no acute distress, well developed, nourished. Head and Face: non-traumatic. Eyes: PERRL, pink conjunctivas, eyelid no trauma, anterior chamber with arcus senilis. Ears: Pinnas intact and no signs of trauma or erythema ear canals clear and no discharge TM no erythema Nose: No discharge, no bleeding. Oropharynx: Mouth normal, tongue pink, pharynx clear,no erythema, tonsils no exudates, no abscesses noted, mucous membrane moist Neck: Supple, non-tender, no thyromegaly, no masses, no JVD, no bruits Breast:Deferred Chest:No tenderness, no crepitus, no paradoxical movement, no retractions Lungs:Clear, well-ventilated, symmetric, no rales, no wheezing, no rhonchi, no stridor, good breath sounds bilaterally Heart: Regular rate, regular rhythm, no murmur, no gallops Vascular: no peripheral edema, Abdomen: Soft, positive bowel sounds, nondistended, no guarding, nontender, no rebound, no masses no hepatomegaly, no splenomegaly, no Robles's sign, no hernias. Rectal: Deferred Genital: Deferred Neurological: Normal speech, motor function intact, sensory function intact Musculoskeletal: Neck nontender, full range of motion, back nontender, full range of motion, Extremities: nontender, full range of motion Skin: Color pink, dry, no turgor, no rash, no lacerations, no abrasions, no contusions. Lymphatic: Deferred Results Laboratory and Microbiology Lab and Micro Result Laboratory Tests Test 07/31/24 20:00 07/31/24 20:26 White Blood Count 7.4 K/uL (4.8-10.8) Red Blood Count 5.30 MIL/uL (4.50-6.20) Hemoglobin 16.4 g/dL (14.0-18.0) Hematocrit 47.0 % (42-54) Mean Corpuscular Volume 88.7 fL (79-99) Mean Corpuscular Hemoglobin 30.9 pg (27.0-33.0) Mean Corpuscular Hemoglobin Concent 34.9 g/dL (32.0-36.0) Red Cell Distribution Width 11.7 % (11.0-15.5) Platelet Count 173 K/uL (130-400) Mean Platelet Volume 10.9 fL (7.5-10.5) H Immature Granulocyte % (Auto) 0.1 % (0-1) Neutrophils (%) (Auto) 64.0 % (40.0-77.0) Lymphocytes (%) (Auto) 26.7 % (21.0-51.0) Monocytes (%) (Auto) 6.5 % (3.0-13.0) Eosinophils (%) (Auto) 2.2 % (0.0-8.0) Basophils (%) (Auto) 0.5 % (0.0-5.0) Neutrophils # (Auto) 4.7 K/uL (1.8-7.7) Lymphocytes # (Auto) 2.0 K/uL (1.0-4.8) Monocytes # (Auto) 0.5 K/uL (0.1-1.0) Eosinophils # (Auto) 0.16 K/uL (0.00-0.70) Basophils # (Auto) 0.04 K/uL (0.00-0.20) Absolute Immature Granulocyte (auto 0.01 K/uL (0-1) Nucleated Red Blood Cells 0.0 % (0.0-0.19) Sodium Level 135 mmol/L (136-145) L Potassium Level 3.6 mmol/L (3.5-5.1) Chloride Level 99 mmol/L (101-111) L Carbon Dioxide Level 30 mmol/L (21-32) Blood Urea Nitrogen 14 mg/dL (7-18) Creatinine 1.0 mg/dL (0.5-1.3) Glomerular Filtration Rate Calc 100 mL/min (>90) Random Glucose 101 mg/dL (70-105) Total Calcium 8.9 mg/dL (8.5-10.1) Total Creatine Kinase 221 U/L (21-232) # Troponin I High Sensitivity < 4 ng/L (4-75) L B-Type Natriuretic Peptide 13 pg/mL (0-100) Troponin I < 0.05 ng/mL (0.00-0.05) Labs Reviewed?: Yes MDM MDM: Differential diagnosis: Anxiety, panic attack, ACS There are no social concerns with this patient. Prescription drug management Prescriptions will include: None Medical management and examination interpretation discussions were had by me with other qualified healthcare professionals as indicated for the patient's care. ED Course Orders Procedure Category Date Status Time Vital Signs Per CPOE 07/31/24 Transmitted Routine 19:42 B-Type Natriuretic LAB 07/31/24 Complete Peptide 19:42 Chest 1vw RAD 07/31/24 Resulted 19:42 12 Lead Ekg Tracing- EKG 07/31/24 Complete Technical 19:42 Oxygen By Nc/Pulse Ox CPOE 07/31/24 Transmitted 19:42 Maintain Iv CPOE 07/31/24 Transmitted 19:42 Iv Insertion CPOE 07/31/24 Transmitted 19:42 Cardiac Monitoring CPOE 07/31/24 Transmitted 19:42 Pulse Oximetry With CPOE 07/31/24 Transmitted Vs And Prn 19:42 Cbc With Differential LAB 07/31/24 Complete 19:42 Activity: Br W/Brp CPOE 07/31/24 Transmitted With Assist 19:42 Creatine Kinase, Total LAB 07/31/24 Complete 19:42 Troponin I High LAB 07/31/24 Complete Sensitivity 19:42 Troponin Poc Order LAB 07/31/24 Complete Only 19:42 Bedside Troponin-I LAB.ER 07/31/24 Complete (Poc) 19:42 Basic Metabolic Panel LAB 07/31/24 Complete 19:42 Vital Signs Date Time Temp Pulse Resp B/P (MAP) Pulse Ox O2 Delivery O2 Flow Rate FiO2 07/31/24 23:01 97.2 74 18 132/72 99 Room Air* 0 21 07/31/24 20:48 97.3 70 18 136/75 99 Room Air* 0 21 07/31/24 19:37 97.3 70 18 136/75 99 Room Air HEART Score Response (Comments) Value History: Low suspicion (0) 0 EKG: Normal 0 Age: < 45yrs (0) 0 Risk Factors: No known risk factors (0) 0 Initial Troponin: Normal limit (0) 0 HEART Score Risk: Low Risk for MACE (1-3) Total 0 DX & DISP Disposition: Discharge Departure Impression: Primary Impression: Non-cardiac chest pain Condition: Stable Additional Instructions: Your blood work today is unremarkable. Your cardiac enzymes are negative. Your EKG does not show any evidence of a heart attack. Your chest x-ray is normal. Follow up with your primary care doctor. Referrals: SELF,REFERRAL (PCP) Time of Disposition: 23:37 I have reviewed the case, and I agree with, Diagnosis and Plan I performed the substantive portion of the visit. I have reviewed and personally made and approve the management plan that is documented in the note by myself or the ANDRADE. I acknowledge for responsibility for the patient's management plan. AJ SCHWARZ Jul 31, 2024 23:37
== END 2024-07-31 23:46 | disposition home or self-care (01) ==
LOC: EDH 19:35
DX: R07.89 Other chest pain (principal); F41.9 Anxiety disorder, unspecified; Z79.52 Long term (current) use of systemic steroids; Z79.899 Other long term (current) drug therapy
CPT/HCPCS: 36415; 71045; 80048; 82550; 83880; 84484; 85025; 93005; 99284

== ENCOUNTER 2024-11-23 03:17 | Emergency (ER) | payer BC ==
[~2024-11-23] VITALS: Ht 157.5 cm; Wt 75.3 kg
--- NOTE | 2024-11-23 03:37 | EKG ---
[facility] Test Date: 2024-11-23 Test Time: 03:35:10 Pat Name: YANETH MUSTAFA Department: ED Room: Gender: M [employer]: [id number] : 1985 Requested By: MAYRA HAYNES Order Number: [id number] Reading MD: Los [place] Measurements Intervals [place] Rate: 71 P: 48 SD: 157 QRS: 132 QRSD: 111 T: -15 QT: 429 QTc: 466 Interpretive Statements Sinus rhythm Probable right ventricular hypertrophy Compared to ECG 07/31/2024 19:42:58 Posterior QRS axis no longer present Electronically Signed On 11-24-2024 17:30:34 CDT by Los Boston Please click the below link to view image of tracing.
[2024-11-23] MEDS: LACTATED RINGERS 1000ML 1,000 ML IV ONE (03:52)
[2024-11-23 04:54] LABS: APPEARANCE,URINE CLEAR (CLEAR); BASOPHILS # (AUTO) 0.03 K/uL (0.00-0.20); BASOPHILS % (AUTO) 0.5 % (0.0-5.0); BILIRUBIN,URINE NEGATIVE (NEGATIVE); COLOR,URINE COLORLESS (YELLOW); EOSINOPHILS # (AUTO) 0.07 K/uL (0.00-0.70); EOSINOPHILS % (AUTO) 1.2 % (0.0-8.0); GLUCOSE, URINE (UA) NEGATIVE (NEGATIVE); HEMATOCRIT 43.3 % (42-54); IMMATURE GRANULOCYTE ABSOLUTE 0.02 K/uL (0-1); KETONES,URINE NEGATIVE (NEGATIVE); LEUKOCYTE ESTERASE ,URINE NEGATIVE Leu/uL (NEGATIVE); LYMPHOCYTES # (AUTO) 1.1 K/uL (1.0-4.8); LYMPHOCYTES % (AUTO) 18.3 % (21.0-51.0); MEAN CORPUSCULAR HEMOGLOBIN 31.8 pg (27.0-33.0); MEAN CORPUSCULAR HGB CONC 35.1 g/dL (32.0-36.0); MEAN CORPUSCULAR VOLUME 90.6 fL (79-99); MONOCYTES # (AUTO) 0.3 K/uL (0.1-1.0); MONOCYTES % (AUTO) 5.8 % (3.0-13.0); NEUTROPHILS # (AUTO) 4.3 K/uL (1.8-7.7); NEUTROPHILS % (AUTO) 73.9 % (40.0-77.0); NITRATE,URINE NEGATIVE (NEGATIVE); OCCULT BLOOD,URINE NEGATIVE (NEGATIVE); PLATELET COUNT (AUTO) 136 K/uL (130-400); PROTEIN,URINE NEGATIVE (NEGATIVE); RED BLOOD CELL COUNT(AUTO) 4.78 MIL/uL (4.50-6.20); RED CELL DISTRIBUTION WIDTH 12.7 % (11.0-15.5); UROBILINOGEN,URINE 0.2 mg/dL (0.2-1.0); WHITE BLOOD COUNT (AUTO) 5.8 K/uL (4.8-10.8)
--- NOTE | 2024-11-23 05:04 | ERN ---
General Chief Complaint: Multiple Complaints Stated Complaint: " ANXIET AND FELLING DEHYDRATED" Time Seen by MD: 03:19 Source: patient History of Present Illness Initial Comments Patient is a 39-year-old male coming in to be evaluated for hydration and generalized body weakness. Per patient he was outside all day and feels dehydrated. He also states that he feels very anxious does has a history of anxiety. Allergies: Coded Allergies: No Known Drug Allergies (Verified Allergy, Unknown, 12/28/18) Home Meds Active Scripts Hydroxyzine HCl (Hydroxyzine HCl) 10 Mg Tablet, 1 TAB PO BID for anxiety for 10 Days, #20 TAB 0 Refills Prov:AJ SCHWARZ 07/25/24 Doxycycline Hyclate (Doxycycline Hyclate) 100 Mg Capsule, 1 CAP PO BID for 10 Days, #20 CAP 0 Refills Prov:MAYRA HAYNES MD 07/09/24 Hydroxyzine HCl (Hydroxyzine HCl) 25 Mg Tablet, 1 TAB PO BID for anxiety for 30 Days, #60 TAB 0 Refills Prov:CHARITY HUGHES 05/06/24 Clonazepam (Clonazepam) 1 Mg Tab.rapdis, 1 MG PO Q8H for anxiety for 2 Days, #4 TAB Prov:EMPERATRIZ LOOMIS MD 02/25/24 Albuterol Sulfate (Ventolin Hfa/Proventil Hfa/Proair Hfa) 90 Mcg Puff, 1 PUFF IH Q4H PRN for SHORTNESS OF BREATH for 5 Days, #1 INH 0 Refills PHARMACY TO DISPENSE 1 INHALER FOR USE Prov:DAXA FIGUEROA 02/18/24 Methylprednisolone (Methylprednisolone) 4 Mg Tab.ds.pk, 4 MG PO DAILY for 5 Days, #1 PACK Prov:DAXA FIGUEROA 02/18/24 Azithromycin (Azithromycin) 1 Gram Packet, 1 GM PO DAILY for 5 Days, #1 PKT Prov:DAXA FIGUEROA 02/18/24 Pantoprazole Sodium (Protonix) 40 Mg Ectab, 40 MG PO DAILY for 30 Days, #30 TAB.EC Prov:MAYRA HAYNES MD 01/15/24 Hydroxyzine HCl (Hydroxyzine HCl) 25 Mg Tablet, 25 MG PO HS PRN for INSOMNIA for 30 Days, #12 TAB 1 Refill Prov:KATHE MILLS 09/29/23 Buspirone HCl (Buspirone HCl) 10 Mg Tablet, 10 MG PO TID, #90 TAB 1 Refill Prov:KATHE MILLS 09/29/23 Past Medical History Past Medical History: Anxiety, Depression Medical History Other: KIP Past Surgical History: None Surgical History Other: RT HAND SX Family History Family History: DM, HTN Social History Social History: ETOH, Lives with family ROS Dictation CONSTITUTIONAL: No chills, no fever,weakness, no diaphoresis, no malaise. HEAD/FACE: No signs of trauma. EENT: No eye pain, no blurred vision, no tearing, no double vision, no ear pain, no ear discharge, no nose pain, no nasal congestion, no throat pain, no throat swelling, no mouth pain. RESPIRATORY: No cough, no orthopnea, no SOB, no stridor, no wheezing. CARDIOVASCULAR: No chest pain, no edema, no palpitations, no syncope. GASTROINTESTINAL/ABDOMINAL: No abdominal pain, no constipation, no diarrhea, no nausea, no vomiting. GENITOURINARY: No abnormal discharge, no dysuria, no frequent urination, no hematuria. No complaints of pain in the genitals. MUSCULOSKELETAL: No back pain, no gout, no joint pain, no joint swelling, no muscle pain, no muscle stiffness, no neck pain. INTEGUMENTARY: No change in color, no change in hair/nails, no dryness, no lesion, no lumps, no rash. NEUROLOGICAL/PSYCH: No anxiety, not depressed, no emotional problem, no headache, no numbness, no pre-existing deficit, no history of seizures, no tremors, no weakness. HEMATOLOGIC/LYMPHATIC: Not anemic, no history of blood clots, no apparent bleeding, no bruising, glands not swollen. All Systems Negative, Except as Noted. Physical Exam Physical Exam Dictation VITAL SIGNS: Reviewed. GENERAL APPEARANCE: Alert, oriented x3, no acute distress, obese. HEAD AND FACE: Non-traumatic. EYES: PERRL, pink conjunctivas, eyelid no trauma, anterior chamber clear. EARS: Pinnas intact and no signs of trauma or erythema. Ear canals clear and no discharge. TMs no erythema. NOSE: No discharge, no bleeding. OROPHARYNX: Mouth normal, teeth no caries, tongue pink. Pharynx clear, no erythema. Tonsils no exudates, no abscesses noted. Mucous membrane moist. NECK: Supple, non-tender, no thyromegaly, no masses, no JVD, no bruits. BREAST: Deferred. CHEST: No tenderness, no crepitus, no paradoxical movement, no retractions. LUNGS: Clear, well-ventilated, symmetric, no rales, no wheezing, no rhonchi, no stridor, good breath sounds bilaterally. HEART: Regular rate, regular rhythm, no murmur, no gallops. VASCULAR: No peripheral edema. ABDOMEN: Soft, positive bowel sounds, nondistended, no guarding, nontender, no rebound, no masses no hepatomegaly, no splenomegaly, no Robles's sign, no hernias. RECTAL: Deferred. GENITAL: Deferred. NEUROLOGICAL: Normal speech, gross motor function intact, gross sensory function intact. MUSCULOSKELETAL: Neck nontender, full range of motion, back nontender, full range of motion. EXTREMITIES: Nontender, full range of motion. SKIN: Color pink, dry, no turgor, no rash, no lacerations, no abrasions, no contusions. LYMPHATICS: Deferred. Results Laboratory and Microbiology Lab and Micro Result Laboratory Tests Test 11/23/24 04:45 White Blood Count 5.8 K/uL (4.8-10.8) Red Blood Count 4.78 MIL/uL (4.50-6.20) Hemoglobin 15.2 g/dL (14.0-18.0) Hematocrit 43.3 % (42-54) Mean Corpuscular Volume 90.6 fL (79-99) Mean Corpuscular Hemoglobin 31.8 pg (27.0-33.0) Mean Corpuscular Hemoglobin Concent 35.1 g/dL (32.0-36.0) Red Cell Distribution Width 12.7 % (11.0-15.5) Platelet Count 136 K/uL (130-400) Mean Platelet Volume 11.5 fL (7.5-10.5) H Immature Granulocyte % (Auto) 0.3 % (0-1) Neutrophils (%) (Auto) 73.9 % (40.0-77.0) Lymphocytes (%) (Auto) 18.3 % (21.0-51.0) L Monocytes (%) (Auto) 5.8 % (3.0-13.0) Eosinophils (%) (Auto) 1.2 % (0.0-8.0) Basophils (%) (Auto) 0.5 % (0.0-5.0) Neutrophils # (Auto) 4.3 K/uL (1.8-7.7) Lymphocytes # (Auto) 1.1 K/uL (1.0-4.8) Monocytes # (Auto) 0.3 K/uL (0.1-1.0) Eosinophils # (Auto) 0.07 K/uL (0.00-0.70) Basophils # (Auto) 0.03 K/uL (0.00-0.20) Absolute Immature Granulocyte (auto 0.02 K/uL (0-1) Nucleated Red Blood Cells 0.0 % (0.0-0.19) Prothrombin Time 11.0 SEC (9.6-11.6) Prothromb Time International Ratio 1.04 (0.85-1.15) Activated Partial Thromboplast Time 31.1 SEC (26.3-35.5) Urine Color COLORLESS (YELLOW) Urine Appearance CLEAR (CLEAR) Urine pH 6.0 (5.0-8.0) Urine Specific [place] 1.002 (1.001-1.031) Urine Protein NEGATIVE mg/dL (NEGATIVE) Urine Glucose (UA) NEGATIVE mg/dL (NEGATIVE) Urine Ketones NEGATIVE mg/dL (NEGATIVE) Urine Occult Blood NEGATIVE (NEGATIVE) Urine Nitrate NEGATIVE (NEGATIVE) Urine Bilirubin NEGATIVE mg/dL (NEGATIVE) Urine Urobilinogen 0.2 mg/dL (0.2-1.0) Urine Leukocyte Esterase NEGATIVE Wm/uL Sodium Level 142 mmol/L (136-145) Potassium Level 3.5 mmol/L (3.5-5.1) Chloride Level 106 mmol/L (101-111) Carbon Dioxide Level 27 mmol/L (21-32) Blood Urea Nitrogen 14 mg/dL (7-18) Creatinine 0.9 mg/dL (0.5-1.3) Glomerular Filtration Rate Calc 113 mL/min (>90) Random Glucose 112 mg/dL (70-105) H Total Calcium 8.9 mg/dL (8.5-10.1) Magnesium Level 1.80 mg/dL (1.80-2.40) Total Creatine Kinase 186 U/L (21-232) Troponin I High Sensitivity 5 ng/L (4-75) B-Type Natriuretic Peptide 12 pg/mL (0-100) Labs Reviewed?: Yes EKG/XRAY/US/CT/MRI EKG Comment 11/23/2024 time 3:35 a.m. Ventricular [address] wave elevation or depression MDM MDM: Differential diagnosis: Dehydration, anxiety Rationale: Tests considered and ordered secondary to shared decision making include: Previous outside records reviewed: Old ER visits. Risk of complication and/or morbidity or mortality of patient management: None Patient is a 39 year old male coming in with multiple complaints. Patient states that he had been having chest discomfort. States he has been in the sun in his he is very dehydrated as well. Laboratory workup negative for acute findings patient is hydrated with IV fluids states he says it is better if he discharged in stable condition. ED Course Orders Procedure Category Date Status Time Cbc With Differential LAB 11/23/24 Complete 03:21 B-Type Natriuretic LAB 11/23/24 Complete Peptide 03:21 Chest 1vw RAD 11/23/24 Taken 03:21 12 Lead Ekg Tracing- EKG 11/23/24 Complete Technical 03:21 Lactated Ringers PHA 11/23/24 Complete 1000ml (Lactated 03:30 Magnesium LAB 11/23/24 Complete 03:21 Creatine Kinase, Total LAB 11/23/24 Complete 03:21 Troponin I High LAB 11/23/24 Complete Sensitivity 03:21 Urinalysis Profile LAB 11/23/24 Complete 03:21 Partial LAB 11/23/24 Complete Thromboplastin Time 03:21 Basic Metabolic Panel LAB 11/23/24 Complete 03:21 Prothrombin Time With LAB 11/23/24 Complete INR 03:21 Current Medications Medications (Trade) Dose Ordered Sig/Rebeca Route PRN Reason Start Time Stop Time Status Last Admin Dose Admin Lactated Ringer's 1,000 ml @ 0 mls/hr ONCE ONCE IV 11/23/24 03:30 11/23/24 03:31 DC 11/23/24 03:52 Vital Signs Date Time Temp Pulse Resp B/P (MAP) Pulse Ox O2 Delivery O2 Flow Rate FiO2 11/23/24 05:46 97.3 73 16 142/66 98 Room Air* 0 11/23/24 04:45 97.5 75 16 145/65 99 Room Air* 0 21 11/23/24 03:37 97.9 80 17 151/63 99 Room Air* 0 21 11/23/24 03:19 96.3 78 24 150/84 98 Room Air DX & DISP Disposition: Discharge Decision to Admit Time: 05:49 Departure Impression: Primary Impression: Anxiety Additional Impression: Dehydration Condition: Stable Additional Instructions: FOLLOW-UP WITH PRIMARY CARE PROVIDER IN 1 TO 2 DAYS. TAKE MEDICATIONS DIRECTED HERE IN THE EMERGENCY ROOM. OKAY TO CONTINUE HOME MEDICATIONS UNLESS OTHERWISE DISCUSSED DURING YOUR VISIT IN THE EMERGENCY ROOM TODAY. RETURN TO YOUR NEAREST EMERGENCY ROOM IF SYMPTOMS WORSEN OR IF THERE IS NO IMPROVEMENT. CALL 911 IF YOU NEED IMMEDIATE ASSISTANCE. TAKE TYLENOL [id number] NEEDED AND IF NO CONTRAINDICATIONS ARE PRESENT. INCREASE ORAL HYDRATION. A WOUND CULTURE OR URINE CULTURE WAS ORDERED HERE IN THE EMERGENCY ROOM DEPARTMENT PLEASE FOLLOW-UP WITH PRIMARY CARE PROVIDER AND ADVISE THEM TO GET REPEAT PORTS FROM OUR FACILITY. IF YOU HAD ANY RICA WRAP/SPLINTS THAT WERE APPLIED HERE, PLEASE DO NOT REMOVE THEM UNTIL YOU SEE YOUR PRIMARY CARE OR SPECIALTY. Referrals: Referrals: SELF,REFERRAL (PCP) AJ DOE MD Time of Disposition: 05:50 MAYRA HAYNES MD November 23, 2024 05:04
[2024-11-23 05:06] LABS: CREATININE 0.9 mg/dL (0.5-1.3); POTASSIUM 3.5 mmol/L (3.5-5.1)
[2024-11-23 05:08] LABS: INR 1.04 (0.85-1.15)
[2024-11-23 05:10] LABS: PARTIAL THROMBOPLASTIN TIME 31.1 SEC (26.3-35.5)
[2024-11-23 05:11] LABS: MAGNESIUM 1.8 mg/dL (1.80-2.40)
[2024-11-23 05:21] LABS: ADD UA MICROSCOPIC NO
[2024-11-23 05:41] LABS: B-TYPE NATRIURETIC PEPTIDE 12 pg/mL (0-100)
[2024-11-23 05:46] VITALS: BP 142/66; PULSE 73; RESP 16; TEMP 97.4; O2SAT 98
--- NOTE | 2024-11-23 09:28 | HMCIMG ---
Exam Type: CHEST 1VW Clinical Information: cp Comparison: None Findings: The lungs are clear of infiltrates. The heart is enlarged. Bony and soft tissue structures of the chest wall are unremarkable. IMPRESSION: Cardiomegaly. Clear lungs.
== END 2024-11-23 05:56 | disposition home or self-care (01) ==
LOC: EDH 03:17
DX: F41.9 Anxiety disorder, unspecified (principal); E86.0 Dehydration; F32.A Depression, unspecified; Z79.52 Long term (current) use of systemic steroids; Z79.899 Other long term (current) drug therapy
CPT/HCPCS: 99284; 71045; 82550; 83735; 84484; 80048; 83880; 85025; 85610; 85730; 81003; 36415; 93005; J7120

== ENCOUNTER 2024-12-28 14:29 | Emergency (ER) | payer BC ==
[~2024-12-28] VITALS: Ht 157.5 cm; Wt 73.0 kg
[2024-12-28 15:46] LABS: HEMATOCRIT 47.3 % (42-54); MEAN CORPUSCULAR HEMOGLOBIN 32.1 pg (27.0-33.0); MEAN CORPUSCULAR HGB CONC 35.1 g/dL (32.0-36.0); MEAN CORPUSCULAR VOLUME 91.5 fL (79-99); RED BLOOD CELL COUNT(AUTO) 5.17 MIL/uL (4.50-6.20); RED CELL DISTRIBUTION WIDTH 13.1 % (11.0-15.5)
[2024-12-28 15:53] VITALS: BP 126/79; PULSE 78; RESP 16; TEMP 98.5; O2SAT 99
[2024-12-28 15:54] LABS: CREATININE 1.1 mg/dL (0.5-1.3); POTASSIUM 3.9 mmol/L (3.5-5.1)
[2024-12-28 16:10] LABS: APPEARANCE,URINE CLEAR (CLEAR); BILIRUBIN,URINE NEGATIVE (NEGATIVE); COLOR,URINE COLORLESS (YELLOW); GLUCOSE, URINE (UA) NEGATIVE (NEGATIVE); KETONES,URINE NEGATIVE (NEGATIVE); LEUKOCYTE ESTERASE ,URINE NEGATIVE Leu/uL (NEGATIVE); NITRATE,URINE NEGATIVE (NEGATIVE); OCCULT BLOOD,URINE NEGATIVE (NEGATIVE); PROTEIN,URINE NEGATIVE (NEGATIVE); UROBILINOGEN,URINE 0.2 mg/dL (0.2-1.0)
[2024-12-28 16:12] LABS: ADD UA MICROSCOPIC NO
[2024-12-28 16:17] LABS: AMPHET/METH SCREEN,URINE NEGATIVE (NEGATIVE); BARBITURATE SCREEN, URINE NEGATIVE (NEGATIVE); BENZODIAZEPINES SCREEN,URINE NEGATIVE (NEGATIVE); CANNABINOID SCREEN,URINE POSITIVE (NEGATIVE); COCAINE SCREEN,URINE NEGATIVE (NEGATIVE); OPIATE SCREEN,URINE NEGATIVE (NEGATIVE); PHENCYCLIDINE SCREEN,URINE NEGATIVE (NEGATIVE)
== END 2024-12-28 18:16 | disposition left against medical advice (07) ==
LOC: EDH 14:29
DX: F41.0 Panic disorder [episodic paroxysmal anxiety] (principal); Z53.21 Procedure and treatment not carried out due to patient leaving prior to being seen by health care provider
CPT/HCPCS: 36415; 80048; 80305; 81003; 85027

== ENCOUNTER 2025-01-03 12:00 | Emergency (ER) | payer BC ==
[~2025-01-03] VITALS: Ht 157.5 cm; Wt 73.5 kg
--- NOTE | 2025-01-03 12:15 | EKG ---
[facility] Test Date: 2025-01-03 Test Time: 12:12:51 Pat Name: YANETH MUSTAFA Department: ED Room: Gender: M [employer] Worker: [facility] : 1985 Requested By: MAYRA HAYNES Order Number: [id number] Reading MD: Nancy Souza Measurements Intervals [place] Rate: 86 P: 69 IN: 153 QRS: 262 QRSD: 106 T: 29 QT: 406 QTc: 485 Interpretive Statements Sinus rhythm Probable left atrial enlargement LAD, consider left anterior fascicular block Compared to ECG 11/23/2024 03:35:10 No significant changes Electronically Signed On 01-06-2025 14:28:51 CDT by Nancy Souza Please click the below link to view image of tracing.
[2025-01-03 12:18] VITALS: BP 138/78; PULSE 88; RESP 18; TEMP 98.2; O2SAT 98
--- NOTE | 2025-01-03 12:43 | ERN ---
General Chief Complaint: Back Pain or Injury Stated Complaint: BODY ACHE, ANXIETY Time Seen by MD: 12:04 Source: patient History of Present Illness Initial Comments Patient is a 39-year-old male coming in complaining of anxiety. Patient states that he does has a history of anxiety has been out of his medications in his here he started follow up. Allergies: Coded Allergies: No Known Drug Allergies (Verified Allergy, Unknown, 12/28/18) Home Meds Active Scripts Hydroxyzine HCl (Hydroxyzine HCl) 10 Mg Tablet, 1 TAB PO BID for anxiety for 10 Days, #20 TAB 0 Refills Prov:AJ SCHWARZ 07/25/24 Doxycycline Hyclate (Doxycycline Hyclate) 100 Mg Capsule, 1 CAP PO BID for 10 Days, #20 CAP 0 Refills Prov:MAYRA HAYNES MD 07/09/24 Hydroxyzine HCl (Hydroxyzine HCl) 25 Mg Tablet, 1 TAB PO BID for anxiety for 30 Days, #60 TAB 0 Refills Prov:CHARITY HUGHES 05/06/24 Clonazepam (Clonazepam) 1 Mg Tab.rapdis, 1 MG PO Q8H for anxiety for 2 Days, #4 TAB Prov:EMPERATRIZ LOOMIS MD 02/25/24 Albuterol Sulfate (Ventolin Hfa/Proventil Hfa/Proair Hfa) 90 Mcg Puff, 1 PUFF IH Q4H PRN for SHORTNESS OF BREATH for 5 Days, #1 INH 0 Refills PHARMACY TO DISPENSE 1 INHALER FOR USE Prov:DAXA FIGUEROA 02/18/24 Methylprednisolone (Methylprednisolone) 4 Mg Tab.ds.pk, 4 MG PO DAILY for 5 Days, #1 PACK Prov:DAXA FIGUEROA 02/18/24 Azithromycin (Azithromycin) 1 Gram Packet, 1 GM PO DAILY for 5 Days, #1 PKT Prov:DAXA FIGUEROA 02/18/24 Pantoprazole Sodium (Protonix) 40 Mg Ectab, 40 MG PO DAILY for 30 Days, #30 TAB.EC Prov:MAYRA HAYNES MD 01/15/24 Hydroxyzine HCl (Hydroxyzine HCl) 25 Mg Tablet, 25 MG PO HS PRN for INSOMNIA for 30 Days, #12 TAB 1 Refill Prov:KATHE MILLS 09/29/23 Buspirone HCl (Buspirone HCl) 10 Mg Tablet, 10 MG PO TID, #90 TAB 1 Refill Prov:KATHE MILLS 09/29/23 Past Medical History Past Medical History: Anxiety, Depression Medical History Other: KIP Past Surgical History: None Surgical History Other: RT HAND SX Family History Family History: DM, HTN Social History Social History: ETOH, Lives with family ROS Dictation CONSTITUTIONAL: No chills, no fever, no weakness, no diaphoresis, no malaise. HEAD/FACE: No signs of trauma. EENT: No eye pain, no blurred vision, no tearing, no double vision, no ear pain, no ear discharge, no nose pain, no nasal congestion, no throat pain, no throat swelling, no mouth pain. RESPIRATORY: No cough, no orthopnea, no SOB, no stridor, no wheezing. CARDIOVASCULAR: No chest pain, no edema, no palpitations, no syncope. GASTROINTESTINAL/ABDOMINAL: No abdominal pain, no constipation, no diarrhea, no nausea, no vomiting. GENITOURINARY: No abnormal discharge, no dysuria, no frequent urination, no hematuria. No complaints of pain in the genitals. MUSCULOSKELETAL: No back pain, no gout, no joint pain, no joint swelling, no muscle pain, no muscle stiffness, no neck pain. INTEGUMENTARY: No change in color, no change in hair/nails, no dryness, no lesion, no lumps, no rash. NEUROLOGICAL/PSYCH: No anxiety, not depressed, no emotional problem, no headache, no numbness, no pre-existing deficit, no history of seizures, no tremors, no weakness. HEMATOLOGIC/LYMPHATIC: Not anemic, no history of blood clots, no apparent bleeding, no bruising, glands not swollen. All Systems Negative, Except as Noted. Physical Exam Physical Exam Dictation VITAL SIGNS: Reviewed. GENERAL APPEARANCE: Alert, oriented x3, no acute distress, obese. HEAD AND FACE: Non-traumatic. EYES: PERRL, pink conjunctivas, eyelid no trauma, anterior chamber clear. EARS: Pinnas intact and no signs of trauma or erythema. Ear canals clear and no discharge. TMs no erythema. NOSE: No discharge, no bleeding. OROPHARYNX: Mouth normal, teeth no caries, tongue pink. Pharynx clear, no erythema. Tonsils no exudates, no abscesses noted. Mucous membrane moist. NECK: Supple, non-tender, no thyromegaly, no masses, no JVD, no bruits. BREAST: Deferred. CHEST: No tenderness, no crepitus, no paradoxical movement, no retractions. LUNGS: Clear, well-ventilated, symmetric, no rales, no wheezing, no rhonchi, no stridor, good breath sounds bilaterally. HEART: Regular rate, regular rhythm, no murmur, no gallops. VASCULAR: No peripheral edema. ABDOMEN: Soft, positive bowel sounds, nondistended, no guarding, nontender, no rebound, no masses no hepatomegaly, no splenomegaly, no Robles's sign, no hernias. RECTAL: Deferred. GENITAL: Deferred. NEUROLOGICAL: Normal speech, gross motor function intact, gross sensory function intact. MUSCULOSKELETAL: Neck nontender, full range of motion, back nontender, full range of motion. EXTREMITIES: Nontender, full range of motion. SKIN: Color pink, dry, no turgor, no rash, no lacerations, no abrasions, no contusions. LYMPHATICS: Deferred. Results Laboratory and Microbiology Labs Reviewed?: Yes EKG/XRAY/US/CT/MRI EKG Comment 01/03/2025 time 12:12 a.m. Ventricular rate 86 Sinus rhythm [place] [address] wave elevation or depression MDM MDM: Differential diagnosis: Anxiety, depression, Rationale: Tests considered and ordered secondary to shared decision making include: Previous outside records reviewed: Old ER visits. Risk of complication and/or morbidity or mortality of patient management: None Medications-Per medication reconciliation Need for hospitalization: Patient does not meet criteria for hospitalization. Patient is a 39-year-old male coming in complaining of anxiety couple issues. Per patient he has been in his medications here to follow up follow up. Patient was evaluated by EKG with a normal limits, patient did receive hydroxyzine symptoms improved I advised him appropriate follow up with PCP in one to ED Course Orders Procedure Category Date Status Time 12 Lead Ekg Tracing- EKG 01/03/25 Complete Technical 12:06 Hydroxyzine 50mg Vial PHA 01/03/25 Complete (Atarax 50mg Inj) 12:06 Current Medications Medications (Trade) Dose Ordered Sig/Rebeca Route PRN Reason Start Time Stop Time Status Last Admin Dose Admin Hydroxyzine HCl (ATArax 50MG INJ) 50 mg ONCE STAT IM 01/03/25 12:06 01/03/25 12:12 DC Vital Signs Date Time Temp Pulse Resp B/P (MAP) Pulse Ox O2 Delivery O2 Flow Rate FiO2 01/03/25 12:18 98.2 88 18 138/78 98 Room Air* 0 21 01/03/25 12:02 98.2 92 22 141/84 98 Room Air 0 DX & DISP Disposition: Discharge Departure Impression: Primary Impression: Anxiousness Additional Impression: Anxiety disorder Condition: Stable Additional Instructions: FOLLOW-UP WITH PRIMARY CARE PROVIDER IN 1 TO 2 DAYS. TAKE MEDICATIONS DIRECTED HERE IN THE EMERGENCY ROOM. OKAY TO CONTINUE HOME MEDICATIONS UNLESS OTHERWISE DISCUSSED DURING YOUR VISIT IN THE EMERGENCY ROOM TODAY. RETURN TO YOUR NEAREST EMERGENCY ROOM IF SYMPTOMS WORSEN OR IF THERE IS NO IMPROVEMENT. CALL 911 IF YOU NEED IMMEDIATE ASSISTANCE. TAKE TYLENOL [id number] NEEDED AND IF NO CONTRAINDICATIONS ARE PRESENT. INCREASE ORAL HYDRATION. A WOUND CULTURE OR URINE CULTURE WAS ORDERED HERE IN THE EMERGENCY ROOM DEPARTMENT PLEASE FOLLOW-UP WITH PRIMARY CARE PROVIDER AND ADVISE THEM TO GET REPORTS FROM OUR FACILITY. IF YOU HAD ANY RICA WRAP/SPLINTS THAT WERE APPLIED HERE, PLEASE DO NOT REMOVE THEM UNTIL YOU SEE YOUR PRIMARY CARE OR SPECIALTY. Referrals: Referrals: SELF,REFERRAL (PCP) AJ DOE MD Time of Disposition: 12:42 MAYRA HAYENS MD Jan 03, 2025 12:43
== END 2025-01-03 12:57 | disposition home or self-care (01) ==
LOC: EDH 12:00
DX: F41.9 Anxiety disorder, unspecified (principal); Z79.52 Long term (current) use of systemic steroids; Z79.899 Other long term (current) drug therapy
CPT/HCPCS: 99284; 96372; 93005; J3410

== ENCOUNTER 2025-02-14 21:49 | Emergency (ER) | payer BC ==
[~2025-02-14] VITALS: Ht 162.6 cm; Wt 68.5 kg
[2025-02-14 21:50] VITALS: TEMP 97.1
--- NOTE | 2025-02-14 21:51 | NUR ---
UA CUP PROVIDED
[2025-02-14 22:22] LABS: IMMATURE GRANULOCYTE ABSOLUTE 0.02 K/uL (0-1); NUCLEATED RED BLOOD CELLS 0.0 % (0.0-0.19); PLATELET COUNT (AUTO) 166 K/uL (130-400); RED BLOOD CELL COUNT(AUTO) 5.05 MIL/uL (4.50-6.20); RED CELL DISTRIBUTION WIDTH 13.2 % (11.0-15.5); WHITE BLOOD COUNT (AUTO) 8.3 K/uL (4.8-10.8)
[2025-02-14 22:25] LABS: APPEARANCE,URINE CLEAR (CLEAR); GLUCOSE, URINE (UA) NEGATIVE (NEGATIVE); LEUKOCYTE ESTERASE ,URINE NEGATIVE Leu/uL (NEGATIVE); NITRATE,URINE NEGATIVE (NEGATIVE); OCCULT BLOOD,URINE NEGATIVE (NEGATIVE)
[2025-02-14 22:29] LABS: ADD UA MICROSCOPIC NO
[2025-02-14 22:30] LABS: CREATININE 0.9 mg/dL (0.5-1.3); GLOMERULAR FILTR. RATE CALC 113.0 mL/min (>90); GLUCOSE,RANDOM 112.0 mg/dL (70-105); SODIUM SERUM 137.0 mmol/L (136-145); UREA NITROGEN, BLOOD 18.0 mg/dL (7-18)
[2025-02-14 22:34] LABS: ASPARTATE AMINOTRANSFERASE 29.0 U/L (10-37); TOTAL PROTEIN, SERUM 7.2 g/dL (6.0-8.3)
--- NOTE | 2025-02-14 23:59 | ERN ---
General Chief Complaint: Other Problems Stated Complaint: " DEHYDRATED AFTER DRINKING" Time Seen by MD: 22:11 Time Seen by Midlevel: 22:11 Source: patient History of Present Illness Initial Comments Patient is a 39-year-old male presenting to the emergency department for evaluation of generalized body weakness. The patient states he has been drinking the last two days and feels like he is dehydrated. Allergies: Coded Allergies: No Known Drug Allergies (Verified Allergy, Unknown, 12/28/18) Home Meds Active Scripts Hydroxyzine HCl (Hydroxyzine HCl) 10 Mg Tablet, 1 TAB PO BID for anxiety for 10 Days, #20 TAB 0 Refills Prov:AJ SCHWARZ 07/25/24 Doxycycline Hyclate (Doxycycline Hyclate) 100 Mg Capsule, 1 CAP PO BID for 10 Days, #20 CAP 0 Refills Prov:MAYRA HAYNES MD 07/09/24 Hydroxyzine HCl (Hydroxyzine HCl) 25 Mg Tablet, 1 TAB PO BID for anxiety for 30 Days, #60 TAB 0 Refills Prov:CHARITY HUGHES 05/06/24 Clonazepam (Clonazepam) 1 Mg Tab.rapdis, 1 MG PO Q8H for anxiety for 2 Days, #4 TAB Prov:EMPERATRIZ LOOMIS MD 02/25/24 Albuterol Sulfate (Ventolin Hfa/Proventil Hfa/Proair Hfa) 90 Mcg Puff, 1 PUFF IH Q4H PRN for SHORTNESS OF BREATH for 5 Days, #1 INH 0 Refills PHARMACY TO DISPENSE 1 INHALER FOR USE Prov:DAXA FIGUEROA 02/18/24 Methylprednisolone (Methylprednisolone) 4 Mg Tab.ds.pk, 4 MG PO DAILY for 5 Days, #1 PACK Prov:DAXA FIGUEROA 02/18/24 Azithromycin (Azithromycin) 1 Gram Packet, 1 GM PO DAILY for 5 Days, #1 PKT Prov:DAXA FIGUEROA 02/18/24 Pantoprazole Sodium (Protonix) 40 Mg Ectab, 40 MG PO DAILY for 30 Days, #30 TAB.EC Prov:MAYRA HAYNES MD 01/15/24 Hydroxyzine HCl (Hydroxyzine HCl) 25 Mg Tablet, 25 MG PO HS PRN for INSOMNIA for 30 Days, #12 TAB 1 Refill Prov:KATHE MILLS 09/29/23 Buspirone HCl (Buspirone HCl) 10 Mg Tablet, 10 MG PO TID, #90 TAB 1 Refill Prov:KATHE MILLS 09/29/23 Past Medical History Past Medical History: Anxiety, Depression Medical History Other: KIP Past Surgical History: None Surgical History Other: RT HAND SX Family History Family History: DM, HTN Social History Social History: ETOH, Lives with family ROS Dictation CONSTITUTIONAL: Negative except for HPI HEAD/FACE: Negative except for HPI EENT: Negative except for HPI RESPIRATORY: Negative except for HPI GASTROINTESTINAL/ABDOMINAL: Negative except for HPI GENITOURINARY: Negative except for HPI MUSCULOSKELETAL: Negative except for HPI INTEGUMENTARY: Negative except for HPI NEUROLOGICAL/PSYCH: Negative except for HPI HEMATOLOGIC/LYMPHATIC: Negative except for HPI All Systems Negative, Except as noted above. 13 point review of systems assessed and all negative except for above. Physical Exam Physical Exam Dictation Vital Signs reviewed General Appearance: Alert, oriented x 3, no acute distress, well developed, nourished. Head and Face: non-traumatic. Eyes: PERRL, pink conjunctivas, eyelid no trauma, anterior chamber with arcus senilis. Ears: Pinnas intact and no signs of trauma or erythema ear canals clear and no discharge TM no erythema Nose: No discharge, no bleeding. Oropharynx: Mouth normal, tongue pink, pharynx clear,no erythema, tonsils no exudates, no abscesses noted, mucous membrane moist Neck: Supple, non-tender, no thyromegaly, no masses, no JVD, no bruits Breast:Deferred Chest:No tenderness, no crepitus, no paradoxical movement, no retractions Lungs:Clear, well-ventilated, symmetric, no rales, no wheezing, no rhonchi, no stridor, good breath sounds bilaterally Heart: Regular rate, regular rhythm, no murmur, no gallops Vascular: no peripheral edema, Abdomen: Soft, positive bowel sounds, nondistended, no guarding, nontender, no rebound, no masses no hepatomegaly, no splenomegaly, no Robles's sign, no hernias. Rectal: Deferred Genital: Deferred Neurological: Normal speech, motor function intact, sensory function intact Musculoskeletal: Neck nontender, full range of motion, back nontender, full range of motion, Extremities: nontender, full range of motion Skin: Color pink, dry, no turgor, no rash, no lacerations, no abrasions, no contusions. Lymphatic: Deferred Results Laboratory and Microbiology Lab and Micro Result Laboratory Tests Test 02/14/25 22:05 02/14/25 22:08 White Blood Count 8.3 K/uL (4.8-10.8) Red Blood Count 5.05 MIL/uL (4.50-6.20) Hemoglobin 16.2 g/dL (14.0-18.0) Hematocrit 47.0 % (42-54) Mean Corpuscular Volume 93.1 fL (79-99) Mean Corpuscular Hemoglobin 32.1 pg (27.0-33.0) Mean Corpuscular Hemoglobin Concent 34.5 g/dL (32.0-36.0) Red Cell Distribution Width 13.2 % (11.0-15.5) Platelet Count 166 K/uL (130-400) Mean Platelet Volume 10.6 fL (7.5-10.5) H Immature Granulocyte % (Auto) 0.2 % (0-1) Neutrophils (%) (Auto) 67.4 % (40.0-77.0) Lymphocytes (%) (Auto) 21.6 % (21.0-51.0) Monocytes (%) (Auto) 8.5 % (3.0-13.0) Eosinophils (%) (Auto) 1.3 % (0.0-8.0) Basophils (%) (Auto) 1.0 % (0.0-5.0) Neutrophils # (Auto) 5.6 K/uL (1.8-7.7) Lymphocytes # (Auto) 1.8 K/uL (1.0-4.8) Monocytes # (Auto) 0.7 K/uL (0.1-1.0) Eosinophils # (Auto) 0.11 K/uL (0.00-0.70) Basophils # (Auto) 0.08 K/uL (0.00-0.20) Absolute Immature Granulocyte (auto 0.02 K/uL (0-1) Nucleated Red Blood Cells 0.0 % (0.0-0.19) Sodium Level 137 mmol/L (136-145) Potassium Level 3.9 mmol/L (3.5-5.1) Chloride Level 101 mmol/L (101-111) Carbon Dioxide Level 29 mmol/L (21-32) Blood Urea Nitrogen 18 mg/dL (7-18) Creatinine 0.9 mg/dL (0.5-1.3) Glomerular Filtration Rate Calc 113 mL/min (>90) Random Glucose 112 mg/dL (70-105) H Total Calcium 9.1 mg/dL (8.5-10.1) Total Bilirubin 0.7 mg/dL (0.2-1.0) Aspartate Amino Transf (AST/SGOT) 29 U/L (10-37) Alanine Aminotransferase (ALT/SGPT) 35 U/L (12-78) Alkaline Phosphatase 93 U/L (50-136) Total Protein 7.2 g/dL (6.0-8.3) Albumin 4.1 g/dL (3.5-5.0) Urine Color COLORLESS (YELLOW) Urine Appearance CLEAR (CLEAR) Urine pH 6.0 (5.0-8.0) Urine Specific [place] 1.008 (1.001-1.031) Urine Protein NEGATIVE mg/dL (NEGATIVE) Urine Glucose (UA) NEGATIVE mg/dL (NEGATIVE) Urine Ketones 5 mg/dL (NEGATIVE) H Urine Occult Blood NEGATIVE (NEGATIVE) Urine Nitrate NEGATIVE (NEGATIVE) Urine Bilirubin NEGATIVE mg/dL (NEGATIVE) Urine Urobilinogen 0.2 mg/dL (0.2-1.0) Urine Leukocyte Esterase NEGATIVE Wm/uL Labs Reviewed?: Yes MDM MDM: Differential diagnosis: Dehydration, electrolyte abnormality There are no social concerns with this patient. Prescription drug management Prescriptions will include: An Medical management and examination interpretation discussions were had by me with other qualified healthcare professionals as indicated for the patient's care. ED Course Orders Procedure Category Date Status Time Cbc With Differential LAB 02/14/25 Complete 21:51 Comprehensive LAB 02/14/25 Complete Metabolic Panel 21:51 Urinalysis Profile LAB 02/14/25 Complete 21:51 0.9%Nacl 1000ml (Ns PHA 02/15/25 Logged 1000ml) 00:00 Vital Signs Date Time Temp Pulse Resp B/P (MAP) Pulse Ox O2 Delivery O2 Flow Rate FiO2 02/14/25 21:50 97.2 87 16 134/80 98 Room Air DX & DISP Disposition: Discharge Departure Impression: Primary Impression: Mild dehydration Condition: Stable Referrals: SELF,REFERRAL (PCP) Time of Disposition: 23:58 I have reviewed the case, and I agree with, Diagnosis and Plan I performed the substantive portion of the visit. I have reviewed and personally made and approve the management plan that is documented in the note by myself or the ANDRADE. I acknowledge for responsibility for the patient's management plan. AJ SCHWARZ Feb 14, 2025 23:58
[2025-02-15] MEDS: 0.9%NACL 1000ML 1,000 ML IV ONE (00:10)
[2025-02-15 01:22] VITALS: BP 139/81; PULSE 76; RESP 16; O2SAT 98
== END 2025-02-15 01:32 | disposition home or self-care (01) ==
LOC: EDH 21:49
DX: E86.0 Dehydration (principal); F41.9 Anxiety disorder, unspecified; Z79.52 Long term (current) use of systemic steroids; Z79.899 Other long term (current) drug therapy
CPT/HCPCS: 99284 ×2; 80053; 85025; 81003; 36415; 96372; 96374; 96361; J3410; J7030; J2405

== ENCOUNTER 2025-02-15 20:38 | Emergency (ER) | payer BC ==
[~2025-02-15] VITALS: Ht 154.9 cm; Wt 69.9 kg
[2025-02-15 21:00] VITALS: BP 125/82; PULSE 59; RESP 20; TEMP 98.1; O2SAT 99
--- NOTE | 2025-02-15 21:42 | ERN ---
ED Note History of Present Illness Stated Complaint: C/O ANXIETY, PANIC ATTACK, SEEN HERE YESTERDAY Chief Complaint: Anxiety/Panic Attack Time Seen by MD: 20:42 Dictation: 39-year-old male presents to ER return visit from yesterday complaints of continued anxiety. Denies homicidal or suicidal ideations denies hallucinations. Allergies: Coded Allergies: No Known Drug Allergies (Verified Allergy, Unknown, 12/28/18) Home Meds Active Scripts Hydroxyzine HCl (Hydroxyzine HCl) 10 Mg Tablet, 1 TAB PO BID for anxiety for 10 Days, #20 TAB 0 Refills Prov:AJ SCHWARZ 07/25/24 Doxycycline Hyclate (Doxycycline Hyclate) 100 Mg Capsule, 1 CAP PO BID for 10 Days, #20 CAP 0 Refills Prov:MAYRA HAYNES MD 07/09/24 Hydroxyzine HCl (Hydroxyzine HCl) 25 Mg Tablet, 1 TAB PO BID for anxiety for 30 Days, #60 TAB 0 Refills Prov:CHARITY HUGHES 05/06/24 Clonazepam (Clonazepam) 1 Mg Tab.rapdis, 1 MG PO Q8H for anxiety for 2 Days, #4 TAB Prov:EMPERATRIZ LOOMIS MD 02/25/24 Albuterol Sulfate (Ventolin Hfa/Proventil Hfa/Proair Hfa) 90 Mcg Puff, 1 PUFF IH Q4H PRN for SHORTNESS OF BREATH for 5 Days, #1 INH 0 Refills PHARMACY TO DISPENSE 1 INHALER FOR USE Prov:DAXA FIGUEROA 02/18/24 Methylprednisolone (Methylprednisolone) 4 Mg Tab.ds.pk, 4 MG PO DAILY for 5 Days, #1 PACK Prov:DAXA FIGUEROA 02/18/24 Azithromycin (Azithromycin) 1 Gram Packet, 1 GM PO DAILY for 5 Days, #1 PKT Prov:DAXA FIGUEROA 02/18/24 Pantoprazole Sodium (Protonix) 40 Mg Ectab, 40 MG PO DAILY for 30 Days, #30 TAB.EC Prov:MAYRA HAYNES MD 01/15/24 Hydroxyzine HCl (Hydroxyzine HCl) 25 Mg Tablet, 25 MG PO HS PRN for INSOMNIA for 30 Days, #12 TAB 1 Refill Prov:KATHE MILLS 09/29/23 Buspirone HCl (Buspirone HCl) 10 Mg Tablet, 10 MG PO TID, #90 TAB 1 Refill Prov:KATHE MILLS 09/29/23 Past Medical History Past Medical History: Anxiety, Bipolar, Depression Additional Past Medical Hx: KIP Surgical History: None Surgical History Other: RT HAND SX Family History: DM, HTN Social History: ETOH, Lives with family Review of System Dictation Constitutional: Negative for fever,chills, and weight loss Eyes: Negative for injury, pain,redness, and discharge ENT: Negative for injury,pain or swelling Cardiovascular: Negative for chest pain, palpitations, and edema Respiratory: Negative for shortness of breath, cough, wheezing, and pleuritic chest pain Abdomen/GI: Negative for abdominal pain, nausea, vomiting, diarrhea, and constipation Back: Negative for injury and pain : Negative for injury, bleeding and discharge MS/Extremity: Negative for injury and deformity Skin: Negative for rash, and discoloration Neuro: Negative for headache, weakness, numbness, tingling, and seizure Psych: Negative for suicide ideation, homicidal ideation, and hallucinations. Positive for anxiety Allergy/Immunology: Negative for hives, rash, and allergies Initial Vital Sign VS Vital Signs Date Time Temp Pulse Resp B/P (MAP) Pulse Ox O2 Delivery O2 Flow Rate FiO2 02/15/25 20:41 98.1 59 20 125/82 99 Room Air 02/15/25 21:00 0 21 Physical Exam Dictation General: awake, alert, NAD Head/Face: Normocephalic, atraumatic Eyes: PERRL, EOMI, vision at baseline ENT: oral cavity clear, TMs clear, no signs of infection Neck: Trachea midline, supple, no nuchal rigidity Cardiovascular: RRR, normal S1/S2, No MRGs, no JVD Respiratory: CTAB, no respiratory distress, No rales or wheezes Abdomen: Soft, non-tender, non-distended, normal bowel sounds, no guarding or rebound. Skin: Warm, dry, normal turgor, no rash MS/Extremity: Pulses equal, no cyanosis, neurovascular intact, FROM Neuro: COAx4, GCS 15, strength 5/5, CN 2-12 intact, normal cerebellar exam, normal gait, Psych: Normal behavior, mood, and affect normal ED Course ED Course Orders Procedure Category Date Status Time Hydroxyzine 50mg Vial PHA 02/15/25 Complete (Atarax 50mg Inj) 21:00 Current Medications Medications (Trade) Dose Ordered Sig/Rebeca Route PRN Reason Start Time Stop Time Status Last Admin Dose Admin Hydroxyzine HCl (ATArax 50MG INJ) 25 mg ONCE ONCE IM 02/15/25 21:00 02/15/25 21:01 DC 02/15/25 21:15 Vital Signs Date Time Temp Pulse Resp B/P (MAP) Pulse Ox O2 Delivery O2 Flow Rate FiO2 02/15/25 21:00 98.1 59 20 125/82 99 Room Air* 0 21 02/15/25 20:41 98.1 59 20 125/82 99 Room Air Medical Decision Making MDM A 14 points ROS done, pertinent positive and negatives described in HPI; all others negative. TIME WAS SPENT ON COUNSELING, REVIEWING MEDICAL RECORDS, REVIEWING THE ENTIRE VISIT DOCUMENTATION (INCLUDING ANY COMMENTS THAT MAY HAVE BEEN GIVEN BY THE PAT IENT i.e. THE REVIEW OF SYSTEMS) AND COORDINATION OF CARE Patient will be given hydroxyzine IM to help with anxiety and symptoms. Had a conversation with patient advised he needs to follow up with his PCP again to get back on his anxiety medications. Patient agrees with plan. Patient advised ER can not be treatiog him daily for anxiety or his medications. Patient VSS, NAD, nontoxic, stable for discharge. Pt given discharge instructions in layman terms and understood, all questions answered. Pt will follow up with PCP and return to the ER if worse. DX & DISP Disposition: Discharge Departure Impression: Primary Impression: Anxiety disorder Condition: Stable Additional Instructions: FOLLOW-UP WITH YOUR PCP IN 24-72 HOURS AND IN THE EVENT IF SYMPTOMS WORSEN OR AN EMERGENCY OVERNIGHT REPORT TO THE ED IMMEDIATELY Referrals: SELF,REFERRAL (PCP) TATYANA CAMPOS NP Feb 15, 2025 21:42
== END 2025-02-15 21:41 | disposition home or self-care (01) ==
LOC: EDH 20:38
DX: F41.0 Panic disorder [episodic paroxysmal anxiety] (principal); F31.9 Bipolar disorder, unspecified; Z79.52 Long term (current) use of systemic steroids; Z79.899 Other long term (current) drug therapy
CPT/HCPCS: 99284; 96372; J3410

== ENCOUNTER 2025-02-17 21:27 | Emergency (ER) | payer BC ==
[~2025-02-17] VITALS: Ht 157.5 cm; Wt 71.2 kg
[2025-02-17 22:45] LABS: AMPHET/METH SCREEN,URINE NEGATIVE (NEGATIVE); BARBITURATE SCREEN, URINE NEGATIVE (NEGATIVE); CANNABINOID SCREEN,URINE POSITIVE (NEGATIVE); COCAINE SCREEN,URINE NEGATIVE (NEGATIVE)
--- NOTE | 2025-02-17 22:51 | EKG ---
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
--- NOTE | 2025-02-17 23:02 | ERN ---
ED Note History of Present Illness Stated Complaint: C/O ANXIETY,PANIC ATTACK Chief Complaint: Anxiety/Panic Attack Time Seen by MD: 21:38 Dictation: 39-YEAR-OLD MALE PRESENTS TO ER COMPLAINS OF ANXIETY. PATIENT STATES HE WAS USING [place] AND STARTED GETTING ANXIETY. PATIENT STATES HE HAS BEEN IN THE ER IN THE PAST WEEK ABOUT 2 TIMES FOR THE SAME REASON. PATIENT STATES FEELING BETTER NOW Allergies: Coded Allergies: No Known Drug Allergies (Verified Allergy, Unknown, 12/28/18) Home Meds Active Scripts Hydroxyzine HCl (Hydroxyzine HCl) 10 Mg Tablet, 1 TAB PO BID for anxiety for 10 Days, #20 TAB 0 Refills Prov:JA SCHWARZ 07/25/24 Doxycycline Hyclate (Doxycycline Hyclate) 100 Mg Capsule, 1 CAP PO BID for 10 Days, #20 CAP 0 Refills Prov:MAYRA HAYNES MD 07/09/24 Hydroxyzine HCl (Hydroxyzine HCl) 25 Mg Tablet, 1 TAB PO BID for anxiety for 30 Days, #60 TAB 0 Refills Prov:CHARITY HUGHES 05/06/24 Clonazepam (Clonazepam) 1 Mg Tab.rapdis, 1 MG PO Q8H for anxiety for 2 Days, #4 TAB Prov:EMPERATRIZ LOOMIS MD 02/25/24 Albuterol Sulfate (Ventolin Hfa/Proventil Hfa/Proair Hfa) 90 Mcg Puff, 1 PUFF IH Q4H PRN for SHORTNESS OF BREATH for 5 Days, #1 INH 0 Refills PHARMACY TO DISPENSE 1 INHALER FOR USE Prov:DAXA FIGUEROA 02/18/24 Methylprednisolone (Methylprednisolone) 4 Mg Tab.ds.pk, 4 MG PO DAILY for 5 Days, #1 PACK Prov:DAXA FIGUEROA 02/18/24 Azithromycin (Azithromycin) 1 Gram Packet, 1 GM PO DAILY for 5 Days, #1 PKT Prov:DAXA FIGUEROA 02/18/24 Pantoprazole Sodium (Protonix) 40 Mg Ectab, 40 MG PO DAILY for 30 Days, #30 TAB.EC Prov:MAYRA HAYNES MD 01/15/24 Hydroxyzine HCl (Hydroxyzine HCl) 25 Mg Tablet, 25 MG PO HS PRN for INSOMNIA for 30 Days, #12 TAB 1 Refill Prov:KATHE MILLS 09/29/23 Buspirone HCl (Buspirone HCl) 10 Mg Tablet, 10 MG PO TID, #90 TAB 1 Refill Prov:KATHE MILLS 09/29/23 Past Medical History Past Medical History: Anxiety Additional Past Medical Hx: KIP Surgical History: None Surgical History Other: RT HAND SX Family History: DM, HTN Social History: ETOH, Lives with family Review of System Dictation CONSTITUTIONAL: NEGATIVE FOR FEVER,CHILLS, AND WEIGHT LOSS EYES: NEGATIVE FOR INJURY, PAIN,REDNESS, AND DISCHARGE ENT: NEGATIVE FOR INJURY,PAIN OR SWELLING CARDIOVASCULAR: NEGATIVE FOR CHEST PAIN, PALPITATIONS, AND EDEMA RESPIRATORY: NEGATIVE FOR SHORTNESS OF BREATH, COUGH, WHEEZING, AND PLEURITIC CHEST PAIN ABDOMEN/GI: NEGATIVE FOR ABDOMINAL PAIN, NAUSEA, VOMITING, DIARRHEA, AND CONSTIPATION BACK: NEGATIVE FOR INJURY AND PAIN : NEGATIVE FOR INJURY, BLEEDING AND DISCHARGE MS/EXTREMITY: NEGATIVE FOR INJURY AND DEFORMITY SKIN: NEGATIVE FOR RASH, AND DISCOLORATION NEURO: NEGATIVE FOR HEADACHE, WEAKNESS, NUMBNESS, TINGLING, AND SEIZURE PSYCH: NEGATIVE FOR SUICIDE IDEATION, HOMICIDAL IDEATION, AND HALLUCINATIONS. POSITIVE ANXIETY ALLERGY/IMMUNOLOGY: NEGATIVE FOR HIVES, RASH, AND ALLERGIES Initial Vital Sign VS Vital Signs Date Time Temp Pulse Resp B/P (MAP) Pulse Ox O2 Delivery O2 Flow Rate FiO2 02/17/25 21:29 98.4 65 20 149/69 100 Room Air 02/17/25 22:03 0 21 Physical Exam Dictation GENERAL: AWAKE, ALERT, NAD HEAD/FACE: NORMOCEPHALIC, ATRAUMATIC EYES: PERRL, EOMI, VISION AT BASELINE ENT: ORAL CAVITY CLEAR, TMS CLEAR, NO SIGNS OF INFECTION NECK: TRACHEA MIDLINE, SUPPLE, NO NUCHAL RIGIDITY CARDIOVASCULAR: RRR, NORMAL S1/S2, NO MRGS, NO JVD RESPIRATORY: CTAB, NO RESPIRATORY DISTRESS, NO RALES OR WHEEZES ABDOMEN: SOFT, NON-TENDER, NON-DISTENDED, NORMAL BOWEL SOUNDS, NO GUARDING OR REBOUND. SKIN: WARM, DRY, NORMAL TURGOR, NO RASH MS/EXTREMITY: PULSES EQUAL, NO CYANOSIS, NEUROVASCULAR INTACT, FROM NEURO: COAX4, GCS 15, STRENGTH 5/5, CN 2-12 INTACT, NORMAL CEREBELLAR EXAM, NORMAL GAIT, PSYCH: NORMAL BEHAVIOR, MOOD, AND AFFECT NORMAL Results (Laboratory/Radiology) Laboratory/Radiology Laboratory Tests Test 02/17/25 22:00 Urine Opiates Screen NEGATIVE (NEGATIVE) Urine Barbiturates Screen NEGATIVE (NEGATIVE) Urine Phencyclidine Screen NEGATIVE (NEGATIVE) Urine Amphetamines Screen NEGATIVE (NEGATIVE) Urine Benzodiazepines Screen NEGATIVE (NEGATIVE) Urine Cocaine Screen NEGATIVE (NEGATIVE) Urine Marijuana (THC) Screen POSITIVE (NEGATIVE) H ED Course ED Course Orders Procedure Category Date Status Time Drug Screen Urine LAB 02/17/25 Complete 21:39 12 Lead Ekg Tracing- EKG 02/17/25 Complete Technical 22:17 Vital Signs Date Time Temp Pulse Resp B/P (MAP) Pulse Ox O2 Delivery O2 Flow Rate FiO2 02/17/25 23:03 98.4 67 20 134/62 100 Room Air* 0 21 02/17/25 22:03 98.4 65 20 149/69 100 Room Air* 0 21 02/17/25 21:29 98.4 65 20 149/69 100 Room Air Medical Decision Making MDM MDM: DIFFERENTIAL DIAGNOSIS: ANXIETY, CHEST PAIN, PSYCHOSIS, RATIONALE: TESTS CONSIDERED AND ORDERED SECONDARY TO SHARED DECISION MAKING INCLUDE: LABS, ECG AND RADIOLOGY PREVIOUS OUTSIDE RECORDS REVIEWED: OLD ER VISITS. RISK OF COMPLICATION AND/OR MORBIDITY OR MORTALITY OF PATIENT MANAGEMENT: NONE MEDICATIONS-PER MEDICATION RECONCILIATION NEED FOR HOSPITALIZATION: PATIENT DOES NOT MEET CRITERIA FOR HOSPITALIZATION. NEED FOR EMERGENCY MAJOR/MINOR SURGERY: NO PATIENT ADVISED TO FOLLOW UP WALKING AT [facility] HE MAY BE ABLE TO HELP HIM WITH HIS MEDICATIONS THERE. PATIENT STATES HE WANTS TO FOLLOW UP WITH HIS OWN PCP THAT WAS GIVEN HIM MEDICATIONS BEFORE FOR ANXIETY. PATIENT VSS, NAD, NONTOXIC, STABLE FOR DISCHARGE. PT GIVEN DISCHARGE INSTRUCTIONS IN [place]MAN TERMS AND UNDERSTOOD, ALL QUESTIONS ANSWERED. PT WILL FOLLOW UP WITH PCP AND RETURN TO THE ER IF WORSE. THERE ARE NO SOCIAL CONCERNS WITH THIS PATIENT. PRESCRIPTION DRUG MANAGEMENT PRESCRIPTIONS WILL INCLUDE SYMPTOMATIC CARE PATIENT'S PRIOR EXTERNAL MEDICAL RECORDS FROM OTHER ER VISITS WERE REVIEWED BY ME INDICATED. PRIOR TESTING AND RESULTS FROM PREVIOUS VISITS WERE REVIEWED. PRIOR TESTS WERE TAKEN INTO ACCOUNT WITH MEDICAL DECISION MAKING AND RESOURCE UTILIZATION, INDEPENDENT HISTORIAN/HISTORIANS WERE USED TO OBTAIN COMPLETE MEDICAL HISTORY. I INDEPENDENTLY INTERPRETED THE TEST THAT WERE PERFORMED, RESULTS WERE REVIEWED BY ME AND CONSIDERED FINDINGS ON RADIOLOGY IF ORDERED. DX & DISP Disposition: Discharge Departure Impression: Primary Impression: Anxiety disorder Condition: Stable Additional Instructions: YOU NEED TO FOLLOW UP WITH YOUR PRIMARY DOCTOR OR YOU CAN WALK IN AT [facility] TO GET TREATMENT FOR YOUR ANXIETY. FOLLOW-UP WITH YOUR PCP IN 24-72 HOURS AND IN THE EVENT IF SYMPTOMS WORSEN OR AN EMERGENCY OVERNIGHT REPORT TO THE ED IMMEDIATELY Referrals: YOHANA RODRIGUEZ (PCP) TATYANA CAMPOS NP Feb 17, 2025 23:02
[2025-02-17 23:03] VITALS: BP 134/62; PULSE 67; RESP 20; TEMP 98.4; O2SAT 100
== END 2025-02-17 23:04 | disposition home or self-care (01) ==
LOC: EDH 21:27
DX: F41.0 Panic disorder [episodic paroxysmal anxiety] (principal); Z79.52 Long term (current) use of systemic steroids; Z79.899 Other long term (current) drug therapy
CPT/HCPCS: 80305; 93005; 99284

== ENCOUNTER 2025-05-04 16:04 | Emergency (ER) | payer BC ==
[~2025-05-04] VITALS: Ht 157.5 cm; Wt 68.0 kg
--- NOTE | 2025-05-04 16:30 | ERN ---
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 HE HAS NOT BEEN TO HIS PRIMARY CARE DOCTOR. SECOND COMPLAINT IS HE IS HAVING ANXIETY, TAKES BUSPIRONE 15 MG B.I.D. BUT STATES THAT IS NOT WORKING. HIS DOCTOR IS DR. RODRIGUEZ IN HIS TOLD HIM TO COME BACK ANY TIME FOR RE-EVALUATION OF HIS ANXIETY HE HAS NOT BEEN BACK TO SEE HIM. Allergies: Coded Allergies: No Known Drug Allergies (Verified Allergy, Unknown, 12/28/18) Home Meds Active Scripts Hydroxyzine HCl (Hydroxyzine HCl) 10 Mg Tablet, 1 TAB PO BID for anxiety for 10 Days, #20 TAB 0 Refills Prov:AJ SCHWARZ 07/25/24 Doxycycline Hyclate (Doxycycline Hyclate) 100 Mg Capsule, 1 CAP PO BID for 10 Days, #20 CAP 0 Refills Prov:MAYRA HAYNES MD 07/09/24 Hydroxyzine HCl (Hydroxyzine HCl) 25 Mg Tablet, 1 TAB PO BID for anxiety for 30 Days, #60 TAB 0 Refills Prov:CHARITY HUGHES DEATH CLEARANCE COORDINATOR 05/06/24 Clonazepam (Clonazepam) 1 Mg Tab.rapdis, 1 MG PO Q8H for anxiety for 2 Days, #4 TAB Prov:EMPERATRIZ LOOMIS MD 02/25/24 Albuterol Sulfate (Ventolin Hfa/Proventil Hfa/Proair Hfa) 90 Mcg Puff, 1 PUFF IH Q4H PRN for SHORTNESS OF BREATH for 5 Days, #1 INH 0 Refills PHARMACY TO DISPENSE 1 INHALER FOR USE Prov:DAXA FIGUEROA 02/18/24 Methylprednisolone (Methylprednisolone) 4 Mg Tab.ds.pk, 4 MG PO DAILY for 5 Days, #1 PACK Prov:DAXA FIGUEROA 02/18/24 Azithromycin (Azithromycin) 1 Gram Packet, 1 GM PO DAILY for 5 Days, #1 PKT Prov:DAXA FIGUEROA 02/18/24 Pantoprazole Sodium (Protonix) 40 Mg Ectab, 40 MG PO DAILY for 30 Days, #30 TAB.EC Prov:MAYRA HAYNES MD 01/15/24 Hydroxyzine HCl (Hydroxyzine HCl) 25 Mg Tablet, 25 MG PO HS PRN for INSOMNIA for 30 Days, #12 TAB 1 Refill Prov:KATHE MILLS 09/29/23 Buspirone HCl (Buspirone HCl) 10 Mg Tablet, 10 MG PO TID, #90 TAB 1 Refill Prov:KATHE MILLS 09/29/23 Past Medical History Past Medical History: Anxiety Additional Past Medical Hx: KIP Surgical History: Other Surgical History Other: FINGER SX Family History: DM, HTN Social History: ETOH, Lives with family RN Note Reviewed/Agreed w/PFSH: Yes Review of System Dictation CONSTITUTIONAL: NEGATIVE EXCEPT FOR HPI HEAD/FACE: NEGATIVE EXCEPT FOR HPI EENT: NEGATIVE EXCEPT FOR HPI RESPIRATORY: NEGATIVE EXCEPT FOR HPI GASTROINTESTINAL/ABDOMINAL: NEGATIVE EXCEPT FOR HPI GENITOURINARY: NEGATIVE EXCEPT FOR HPI MUSCULOSKELETAL: NEGATIVE EXCEPT FOR HPI LEFT SHOULDER PAIN ONE MONTH INTEGUMENTARY: NEGATIVE EXCEPT FOR HPI NEUROLOGICAL/PSYCH: NEGATIVE EXCEPT FOR HPI ANXIETY NO SUICIDAL OR HOMICIDAL IDEATION HEMATOLOGIC/LYMPHATIC: NEGATIVE EXCEPT FOR HPI ALL SYSTEMS NEGATIVE, EXCEPT NOTED ABOVE. 13 POINT REVIEW OF SYSTEMS ASSESSED AND ALL NEGATIVE EXCEPT FOR ABOVE. Initial Vital Sign VS Vital Signs Date Time Temp Pulse Resp B/P (MAP) Pulse Ox O2 Delivery O2 Flow Rate FiO2 05/04/25 16:08 97.9 68 18 119/67 98 Room Air 0 Physical Exam Dictation VITAL SIGNS REVIEWED GENERAL APPEARANCE: ALERT, ORIENTED X 3, MILD ACUTE DISTRESS, WELL DEVELOPED, NOURISHED. HEAD AND FACE: NON-TRAUMATIC. EYES: PERRL, PINK CONJUNCTIVAS, EYELID NO TRAUMA, ANTERIOR CHAMBER WITH ARCUS SENILIS. EARS: PINNAS INTACT AND NO SIGNS OF TRAUMA OR ERYTHEMA EAR CANALS CLEAR AND NO DISCHARGE TM NO ERYTHEMA NOSE: NO DISCHARGE, NO BLEEDING. OROPHARYNX: MOUTH NORMAL, TONGUE PINK, PHARYNX CLEAR,NO ERYTHEMA, TONSILS NO EXUDATES, NO ABSCESSES NOTED, MUCOUS MEMBRANE MOIST NECK: SUPPLE, NON-TENDER, NO THYROMEGALY, NO MASSES, NO JVD, NO BRUITS BREAST:DEFERRED CHEST:NO TENDERNESS, NO CREPITUS, NO PARADOXICAL MOVEMENT, NO RETRACTIONS LUNGS:CLEAR, WELL-VENTILATED, SYMMETRIC, NO RALES, NO WHEEZING, NO RHONCHI, NO STRIDOR, GOOD BREATH SOUNDS BILATERALLY HEART: REGULAR RATE, REGULAR RHYTHM, NO MURMUR, NO GALLOPS VASCULAR: NO PERIPHERAL EDEMA, ABDOMEN: SOFT, POSITIVE BOWEL SOUNDS, NONDISTENDED, NO GUARDING, NONTENDER, NO REBOUND, NO MASSES NO HEPATOMEGALY, NO SPLENOMEGALY, NO STEELE'S SIGN, NO HERNIAS. RECTAL: DEFERRED GENITAL: DEFERRED NEUROLOGICAL: NORMAL SPEECH, MOTOR FUNCTION INTACT, SENSORY FUNCTION INTACT ANXIOUS, NO SUICIDAL OR HOMICIDAL IDEATION MUSCULOSKELETAL: N ANTERIOR LEFT DELTOID TENDERNESS WITH PALPATION. FULL RANGE OF MOTION NOTED. SKIN INTACT NO ERYTHEMA SKIN: COLOR PINK, DRY, NO TURGOR, NO RASH, NO LACERATIONS, NO ABRASIONS, NO CONTUSIONS. LYMPHATIC: DEFERRED ED Course ED Course Orders Procedure Category Date Status Time Shoulder Comp 2+Vws Lt RAD 05/04/25 Resulted 16:27 Ibuprofen 800 Mg Tab PHA 05/04/25 Complete (Motrin) 16:30 Dexamethasone 4mg/Ml PHA 05/04/25 Complete 1ml Vial (Dexametha 16:30 Current Medications Medications (Trade) Dose Ordered Sig/Rebeca Route PRN Reason Start Time Stop Time Status Last Admin Dose Admin Dexamethasone Sodium Phosphate (dexaMETHasone 4MG/ML 1ML VIAL) 8 mg ONCE ONCE IM 05/04/25 16:30 05/04/25 16:31 DC 05/04/25 17:37 Ibuprofen (moTRIN) 800 mg ONCE ONCE PO 05/04/25 16:30 05/04/25 16:31 DC 05/04/25 17:37 Vital Signs Date Time Temp Pulse Resp B/P (MAP) Pulse Ox O2 Delivery O2 Flow Rate FiO2 05/04/25 16:08 97.9 68 18 119/67 98 Room Air 0 1820/PAIN IS MARKEDLY REDUCED IBUPROFEN AND DECADRON. 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 X-RAY NEGATIVE PATIENT HAS A LONG HISTORY OF ANXIETY AND PANIC ATTACKS IN HIS ON BUSPIRONE NO SUICIDAL OR HOMICIDAL IDEATION DISCHARGED HOME WITH A HYDROXYZINE PAMOATE TOLD FOLLOW UP WITH HIS DOCTOR IN THE NEXT 1-2 DAYS DX & DISP Disposition: Discharge Departure Impression: Primary Impression: Chronic left shoulder pain Additional Impressions: Repetitive motion injury, Severe anxiety Condition: Stable Scripts Hydroxyzine Pamoate (Hydroxyzine Pamoate) 100 Mg Capsule 1 CAP PO TID, #40 CAP 0 Refills Prov: ALEJANDRAMARÍAANASTASIYA 05/04/25 Methylprednisolone (Medrol) 4 Mg Tab.ds.pk 1 TAB PO AD for 6 Days, #21 TAB 0 Refills 6 on day 1 then reduce by one tablet daily until gone Prov: ALEJANDRAMARÍAANASTASIYA KENNEDY 05/04/25 Additional Instructions: FOLLOW-UP WITH PRIMARY CARE PROVIDER IN 1 TO 2 DAYS. TAKE MEDICATIONS DIRECTED HERE IN THE EMERGENCY ROOM. OKAY TO CONTINUE HOME MEDICATIONS UNLESS OTHERWISE DISCUSSED DURING YOUR VISIT IN THE EMERGENCY ROOM TODAY. RETURN TO [facility] EM[facility]GENC[facility] RO[facility] IF SYMPTOMS WORSEN OR IF THERE IS NO IMPROVEMENT. CALL 911 IF YOU NEED IMMEDIATE ASSISTANCE. TAKE TYLENOL OR MOTRIN [id number] NEEDED AND IF NO CONTRAINDICATIONS ARE PRESENT. INCREASE ORAL HYDRATION. A WOUND CULTURE OR URINE CULTURE WAS ORDERED HERE IN THE EMERGENCY ROOM DEPARTMENT PLEASE FOLLOW-UP WITH PRIMARY CARE PROVIDER AND ADVISE THEM TO GET REPEAT PORTS FROM OUR FACILITY. IF YOU HAD ANY RICA WRAP/SPLINTS THAT WERE APPLIED HERE, PLEASE DO NOT REMOVE THEM UNTIL YOU SEE YOUR PRIMARY CARE OR SPECIALTY. WARM COMPRESSES TO LEFT SHOULDER THREE TO 4 TIMES A DAY. TAKE MEDROL DOSEPAK DIRECTED UNTIL GONE. TAKE TYLENOL ARTHRITIS 650 MG/[id number] ONE EVERY 8 HOURS NEEDED FOR PAIN. TAKE HYDROXYZINE PUMP MOWING DIRECTED FOR SEVERE ANXIETY AND CONTINUE BUSPIRONE. DO NOT TAKE HYDROXYZINE PAMOATE AND OPERATE A VEHICLE FOLLOW UP WITH 1-2 DAYS FOR MANAGEMENT OF YOUR ANXIETY Referrals: YOHANA RODRIGUEZ (PCP) Time of Disposition: 18:21 I have reviewed the case, and I agree with, Diagnosis and Plan ОЛЕГANASTASIYA May 04, 2025 16:30
--- NOTE | 2025-05-04 17:47 | HMCIMG ---
EXAM: CR left Shoulder, 2 View. CLINICAL HISTORY: NON TRAUMA LEFT SHOULDER PAIN ONE MONTH COMPARISON: None provided. FINDINGS: BONES: No acute fracture or aggressive appearing osseous lesion. JOINTS: No dislocation. The joint spaces are normal. SOFT TISSUES: The soft tissues are unremarkable. IMPRESSION: No acute abnormality evident on examination of the left shoulder. No acute fracture or dislocation. /[place]
[2025-05-04] MEDS ORDERED: METH4TAB3 PO (18:21)
[2025-05-04] MEDS ORDERED: HYDR100C2 PO (18:21)
[2025-05-04 18:29] VITALS: BP 130/69; PULSE 85; RESP 18; TEMP 97.8; O2SAT 98
== END 2025-05-04 18:28 | disposition home or self-care (01) ==
LOC: EDH 16:04
DX: G89.29 Other chronic pain (principal); M25.512 Pain in left shoulder; F41.9 Anxiety disorder, unspecified; Z79.52 Long term (current) use of systemic steroids; Z79.899 Other long term (current) drug therapy
CPT/HCPCS: 99284; 73030; 96372; J1100